=== PATIENT | male | born 1950 | race Caucasian/White ===

== ENCOUNTER 2020-11-22 09:17 | Outpatient (REF) | payer MEDICARE, MEDICAID, SELFPAY ==
[2020-11-22 12:22] LABS: Creatinine Urine 189.01 mg/dL; Microalbum/Creatinine Ratio Ur 5.8 ug/mg cr
[2020-11-22 12:49] LABS: Alanine Aminotransferase 29 U/L (0-40); Albumin Level 4.1 g/dL (3.5-5.0); Alkaline Phosphatase 90 U/L (39-117); Anion Gap 14 (12-20); Aspartate Amino Transferase 21 U/L (5-37); Bilirubin Total 0.3 mg/dL (0.0-1.0); Blood Urea Nitrogen 22 mg/dL (9-16); Carbon Dioxide 28 mmol/L (22-29); Chloride 104 mmol/L (96-108); Cholesterol 164 mg/dL; Estimated Glomerular Filt Rate > 60; Glucose Fasting 141 mg/dL (60-99); HDL Cholesterol 49 mg/dL; LDL Cholesterol Calculated 94 mg/dl; Potassium 4.6 mmol/L (3.3-5.1); Sodium 141 mmol/L (135-145); Total Protein 6.5 g/dL (6.5-8.0); Triglycerides 108 mg/dL
== END 2020-11-22 09:18 | disposition home or self-care (01) ==
LOC: HO.HMGCLDS 09:17
PROVIDERS: PCP Nurse Practitioner Family; Visit Provider Nurse Practitioner Family
DX: E11.9 Type 2 diabetes mellitus without complications (principal); I10 Essential (primary) hypertension; Z12.5 Encounter for screening for malignant neoplasm of prostate
CPT/HCPCS: 36415; 80053; 80061; 82043; 84153; 84443

== ENCOUNTER → 2022-05-15 13:12 | Outpatient (REF) | payer MEDICARE, MEDICAID, SELFPAY ==
--- NOTE | 2022-05-15 13:15 | CA_ITS ---
Transthoracic Echocardiogram Patient (Last, First, Middle): Uriah Ramires A Gender: Male Date of : 1950 Age: 71 Procedure Date: 05/15/2022 Procedure Type: Transthoracic Echocardiogram Location: OP Height: 175.26 cm Weight: 73.94 kg BSA: 1.89 m2 Heart Rate: 73 bpm BP: 130 / 85 mmHg Machine Setter Automatic: ANIBAL Najera MD: Wally Roa [facility] Drafting Clerk: Christophe Mayorga MD Symptoms: I35.0 - Nonrheumatic aortic (valve) stenosis Study Quality: Adequate ECG Rhythm: Sinus Conclusions: - 1. Normal LV systolic function with impaired relaxation filling pattern 2. [id number] aortic stenosis and mild aortic regurgitation 3. No gross pericardial effusion Findings Left Ventricle Normal left ventricular size, thickness, and systolic function. The visually estimated ejection fraction is between 55-60%. Spectral Doppler is indicative of an impaired relaxation filling pattern. E/E prime ratio is between 8 and 15 consistent with indeterminate filling pressures. Right Ventricle Normal right ventricular cavity size and systolic function. Atria The left atrium is normal in size. Interatrial shunt cannot be excluded. The right atrium is normal in size. Aortic Valve There is mild calcification of the aortic valve. There is moderate thickening of the aortic valve. There is mild to moderate aortic valve stenosis. The peak aortic gradient is 23 mmHg.The mean gradient is 13 mmHg. The aortic valve area is 1.30 cm2. There is mild aortic valve regurgitation. Mitral Valve There is mild anterior and posterior mitral leaflet thickening. There is mild mitral annular calcification. There is trace mitral valve regurgitation. There is no mitral valve stenosis. Pulmonic Valve The pulmonic valve was not well visualized. Tricuspid Valve Likely normal tricuspid valve structure and function. Tricuspid regurgitation envelope is inadequate for calculation of right ventricular systolic pressure. Normal right atrial pressure. Great Vessels All visible segments of the aorta are normal in size. The pulmonary artery was not well visualized. Venous The inferior vena cava is normal in size and collapses greater than 50% with inspiration. Pericardium/Pleural There is no evidence of pericardial effusion. Prior Study Comparison No significant change compared to prior study dated: 02/29/2020. Measurements 2D Linear Measurements IVSd: 1.11 0.6-0.9/0.6-1.0 cm LVIDd: 5.02 3.9-5.3/4.2-5.9 cm LVIDd Index: 2.66 2.4-3.2/2.2-3.1 cm/m2 LVIDs: 3.02 2.0-3.6 cm LVPWd: 1.07 0.7-1.1 cm LA Diam: 3.10 2.7-3.8/3.0-4.0 cm LAIDs Index: 1.64 1.5-2.3 cm/m2 LV Mass: 256.61 67-162/88-224 g LV Mass Index: 135.77 43-95/49-115 g/m2 LVOT Diam: 2.10 3.0+(-)1.3 cm 2D Systolic Function EF 4C: 52.80 >55% EF 2C: 62.10 >55% EF BiP: 55.40 >55% Mitral Valve MV Pk E: 0.77 MV PK A: 0.85 MV Decel Time: 216.00 E/A: 0.90 E'Lateral: 10.00 E'Medial: 9.03 E/E' Med: 8.50 E/E' Lat: 7.70 PHT: 63.00 MVA PHT: 3.49 Decel [place]: 3.54 Aortic Valve AoV Pk Rigoberto: 2.38 AoV Mn Rigoberto: 1.70 AoV VTI: 0.51 AoV Pk Grad: 23.00 Aov Mn Grad: 13.00 MERRY Cont.VTI: 1.30 AI Pk Rigoberto: 4.44 AI [place]: 2.90 LVOT LVOT Pk Rigoberto: 0.88 LVOT Mn [place]: 0.64 LVOT VTI: 0.19 LVOT Pk Grad: 3.00 LVOT Mn Grad: 2.00 LVOT Diam: 2.10 LVOT Area: 3.46 Diastolic Function MV Pk E: 0.77 MV Pk A: 0.85 E/A: 0.90 E'Medial: 9.03 E/E' Med: 8.50 E' Laterial: 10.00 E/E' Lat: 7.70 Right Ventricle TAPSE (mm): 24.40 TVS' Rigoberto: 12.90 Tricuspid Valve RA Press: 3.00 Great Vessels Aorta Sinus of Valsalva: 3.50 2.0-3.5 cm Ao Asc: 3.40 2.1-3.4 cm Pulmonary Valve PV Pk Rigoberto: 1.14 Peak PV Grad: 5.00 Updated in Other Vendor System with Status of Final Christophe Mayorga MD electronically signed on 05/16/2022 8:40:58 AM with status of Final
== END ==
LOC: HO.CARD 13:12
PROVIDERS: PCP Nurse Practitioner Family; Visit Provider Nurse Practitioner Family
DX: I35.0 Nonrheumatic aortic (valve) stenosis (principal)
CPT/HCPCS: 93306

== ENCOUNTER 2022-07-08 11:25 | Emergency (ER) | payer MEDICARE, MEDICAID, SELFPAY ==
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
--- NOTE | ~2022-07-08 | XR_ITS ---
EXAMINATION: XR HIP, LEFT , AP pelvis CLINICAL INFORMATION: Fall COMPARISON: None available at the time of this dictation. TECHNIQUE: Frontal and lateral views of the hip acquired. , AP pelvis FINDINGS: There is no evidence of acute fracture or dislocation. There are mild degenerative arthritic changes of the hip evident by sclerotic changes of the acetabular roof and narrowing of the joint space. Mild degenerative changes of the symphysis pubis. Mild degenerative changes of the SI joints. Adjacent pubic rami are intact. Surrounding soft tissues are unremarkable. XR/XR hip LT w PEL1V IMPRESSION: Mild degenerative arthritis. No definite fracture. Normal radiograph does not entirely exclude the possibility of hip fracture or bone contusions. If there is high clinical suspicion or if patient symptoms persist for longer period, then MRI might be utilized for further investigation.
--- NOTE | ~2022-07-08 | CT_ITS ---
CT head/brain wo IV con CLINICAL INFORMATION: Fall COMPARISON: MRI 2013 TECHNIQUE: Department standard protocol. This CT examination was performed using dose optimization techniques as appropriate, variously including the following: *Automated exposure control *Adjustment of mA and/or kV according to patient size (this includes techniques or standardized protocols for targeted exams where dose is matched to indication/reason for exam; i.e. extremities or head) *Use of iterative reconstruction technique DLP: 1023 mGy-cm FINDINGS: CEREBRAL HEMISPHERES: There is no evidence of intra-axial or extra-axial mass, hemorrhage or acute infarct. BRAIN PARENCHYMA: Normal moore-white matter differentiation. SUBDURAL SPACE: No bleed. BASAL GANGLIA AND PINEAL GLAND: Unremarkable VENTRICLES: Symmetric and normal in size. CEREBELLUM AND BRAINSTEM: Redemonstration of a fluid-filled space posterior fossa left of midline, as described on the MRI this may represent an arachnoid cyst versus a congenital variance prominent subdural space. There is no mass effect. CEREBELLOPONTINE ANGLES: No lesion found. ORBITS: No intraorbital mass. VESSELS: Unremarkable SKULL BASE: Unremarkable INCLUDED SINUSES AT SKULL BASE: Clear SKULL AND SKIN: No fracture or bone lesion found. CT/CT head/brain wo IV con IMPRESSION: * No CT evidence of intracranial bleed. * Redemonstration of a fluid-filled space posterior fossa left of midline, as described on the MRI this may represent an arachnoid cyst versus a prominent subdural space. There is no mass effect.
--- NOTE | ~2022-07-08 | CT_ITS ---
EXAMINATION: CT CERVICAL SPINE CLINICAL INFORMATION: Reason for Exam s/p fall ? head injury COMPARISON: No prior CT available, TECHNIQUE: Computed axial sagittal and coronal images acquired using department's standard protocol. This CT examination was performed using dose optimization techniques as appropriate, variously including the following: *Automated exposure control *Adjustment of mA and/or kV according to patient size (this includes techniques or standardized protocols for targeted exams where dose is matched to indication/reason for exam; i.e. extremities or head) *Use of iterative reconstruction technique CONTRAST: None DLP: 350 mGy-cm FINDINGS: SKULL BASE: Visualized structures at skull base are normal, Included facial sinuses are clear, CERVICAL VERTEBRAE: 7 cervical vertebrae identified maintaining proper height and alignments. Plate and screws, anterior fusion of C4-C5, hardware remain intact. DISCS: Loss of disc heights at C3-C4, C4-C5, C5-C6 suggests underlying degenerative disc disease. Developed osteophyte from the edges of endplates encroaching on the left foramen at C3-C4 and right foramen at C5-C6, possible underlying nerve impingement. C1-C2: No fracture. Anatomic alignments maintained, no significant osseous a stenosis of central canal. C2-C3: No fracture. Anatomic alignments maintained, no significant osseous a stenosis of central canal. C3-C4: No fracture. Anatomic alignments maintained, no significant osseous a stenosis of central canal. C4-C5: No fracture. Anatomic alignments maintained, no significant osseous a stenosis of central canal. C5-C6: No fracture. Anatomic alignments maintained, no significant osseous a stenosis of central canal. C6-C7: No fracture. Anatomic alignments maintained, no significant osseous a stenosis of central canal. C7-T1: No fracture. Anatomic alignments maintained, no significant osseous a stenosis of central canal. PARAVERTEBRAL SOFT TISSUE: Paravertebral soft tissues unremarkable. CT/CT cervical spine wo IV con IMPRESSION: * No CT evidence of cervical spine fracture. * Anterior fusion of C4-C5, hardware remain intact. * Loss of disc height at C3-C4, C4-C5, C5-C6 suggests underlying degenerative disc disease. * Developed osteophyte from the edges of endplates encroaching on the left foramen at C3-C4 and right foramen at C5-C6, possible underlying nerve impingement. MRI could be utilized for further investigation if clinically indicated.
[2022-07-08 12:04] VITALS: BP 165/92; PULSE 84; RESP 18; TEMP 36.4; O2SAT 95; BMI 25.0
--- NOTE | 2022-07-08 12:04 | ED_ITS ---
HPI - Fall General Chief Complaint: Fall <GAYLE Quezada - Last Filed: 07/08/22 12:09> Stated Complaint: fall <GAYLE Quezada - Last Filed: 07/08/22 12:09> Time Seen by Provider: 07/08/22 13:13 <GAYLE Quezada - Last Filed: 07/08/22 12:09> Source: patient <Brandie Suero NP - Last Filed: 07/08/22 18:09> Mode of arrival: ambulatory <Brandie Suero NP - Last Filed: 07/08/22 18:09> Limitations: no limitations <Brandie Suero NP - Last Filed: 07/08/22 18:09> History of Present Illness HPI Narrative: 71-year-old male with a history of coronary disease, hypertension, hyperlipidemia, diabetes presents with complaints of left hip pain and bruising. Patient reports on he had a fall down 3 stairs landing on the left hip and feeling a snapping sensation. Since then he has had pain and bruising. He has been able to walk. He denies any head strike or loss of consciousness. Denies chest pain, abdominal pain, vomiting, vision changes, neck pain, urinary symptoms, fever, numbness/tingling/weakness. <Brandie Suero NP - Last Filed: 07/08/22 18:09> Related Data Home Medications: Home Medications Medication Instructions Recorded Confirmed blood sugar diagnostic (OneTouch #10 ea 07/17/20 08/07/21 Verio test strips) famotidine 20 mg tablet mg PO BID 07/17/20 04/15/22 lancets (OneTouch UltraSoft #100 ea 07/17/20 08/07/21 Lancets) mecobalamin (vitamin B12) 1,000 1,000 mcg PO DAILY 07/17/20 04/15/22 mcg chewable tablet pramipexole 0.5 mg tablet mg PO BEDTIME 07/17/20 04/15/22 Previous Rx's Medication Instructions Recorded FreeStyle Krish 2 [place] (flash #1 ea 04/15/22 glucose scanning reader) FreeStyle Krish 2 Sensor (flash #1 ea 04/15/22 glucose sensor) amlodipine 5 mg tablet 5 mg PO DAILY #90 tabs 04/15/22 aspirin 81 mg tablet,delayed 81 mg PO DAILY 90 days #90 tabs 04/15/22 release atorvastatin 80 mg tablet 80 mg PO DAILY #90 tabs 04/15/22 lisinopril 5 mg tablet 5 mg PO DAILY 90 days #90 tabs 04/15/22 metformin 500 mg tablet 500 mg PO DAILY #90 tabs 04/15/22 montelukast 10 mg tablet 10 mg PO DAILY 90 days #90 tabs 04/15/22 paroxetine HCl 30 mg tablet 30 mg PO QAM #90 tabs 04/15/22 oxycodone 5 mg tablet 5 mg PO Q8H PRN pain #5 tabs 07/08/22 <GAYLE Quezada - Last Filed: 07/08/22 12:09> Allergies/Adverse Reactions: Allergies Allergy/AdvReac Type Severity Reaction Status Date / Time No Known Allergies Allergy Verified 04/15/22 10:01 <GAYLE Quezada - Last Filed: 07/08/22 12:09> Review of Systems Review of Systems: Yes all other systems are reviewed and are negative <Brandie Suero NP - Last Filed: 07/08/22 18:09> Constitutional: Constitutional: Reports no additional constitutional complaints, Denies body ache(s), Denies chills, Denies fever(s), Denies headache(s) and Denies weakness <Brandie Suero NP - Last Filed: 07/08/22 18:09> Eyes: Eyes: Reports no additional eye complaints and Denies change in vision <Brandie Suero NP - Last Filed: 07/08/22 18:09> ENT: Reports system reviewed and no additional complaints, except as documented, Denies dizziness, Denies headache(s), Denies nasal congestion, Denies nasal discharge and Denies neck pain <Brandie Suero NP - Last Filed: 07/08/22 18:09> Cardiovascular: Cardiovascular: Reports no additional cardiovascular complaints, Denies chest pain, Denies leg edema and Denies dyspnea <KIT Beth Last Filed: 07/08/22 18:09> Respiratory: Respiratory: Reports no additional respiratory complaints, Denies cough and Denies dyspnea <Brandie Suero NP - Last Filed: 07/08/22 18:09> Gastrointestinal: Gastrointestinal: Reports no additional gastrointestinal complaints, Denies abdominal pain, Denies diarrhea, Denies nausea and Denies vomiting <Brandie Suero NP - Last Filed: 07/08/22 18:09> Genitourinary: Genitourinary: Denies urinary incontinence <Brandie clark NP - Last Filed: 07/08/22 18:09> Musculoskeletal: Musculoskeletal: Reports no additional musculoskeletal complaints, Denies back pain, Reports arthralgias, Denies joint swelling, Denies neck pain, Denies numbness and Denies tingling <Brandie Suero NP - Last Filed: 07/08/22 18:09> Integumentary/Breasts: Skin/Breast: Reports system reviewed and no additional complaints, except as docu and Denies rash <Brandie Suero NP - Last Filed: 07/08/22 18:09> Neurologic: Reports system reviewed and no additional complaints, except as documented, Denies Abnormal speech present, Denies dizziness, Denies headache(s), Denies numbness, Denies tingling and Denies weakness <Brandie Suero NP - Last Filed: 07/08/22 18:09> [facility] Past Medical History Attestation statement: The following information was validated with the patient. <Brandie Suero NP - Last Filed: 07/08/22 18:09> Source: old records reviewed and nursing notes reviewed <Brandie Suero NP - Last Filed: 07/08/22 18:09> Medical History: Medical History Aortic stenosis CAD (coronary artery disease) Cervical radiculopathy Diabetes mellitus Elevated lipoprotein A level HTN (hypertension) Hyperlipidemia Neuritis PAC (premature atrial contraction) PVD (peripheral vascular disease) RLS (restless legs syndrome) Vitamin B12 deficiency <GAYLE Quezada - Last Filed: 07/08/22 12:09> Surgical History: Surgical History History of knee surgery <GAYLE Quezada - Last Filed: 07/08/22 12:09> Family History Family History: Family History Father Bone cancer Mother Unknown family medical history <GAYLE Quezada - Last Filed: 07/08/22 12:09> Social History Social History: Social History Housing: Apartment Alcohol intake: never Patient Tobacco Use Status: Former Tobacco user Quit Date: 1976 e-Cigarette/Vaping Use: Never Used Second Hand Smoke Exposure: No Advance Directives: Yes Advance Directives Information Provided: Yes Advance Directives on File: No Current occupational status: retired Cognitive needs: No Hearing needs: No Vision needs: No <GAYLE Quezada - Last Filed: 07/08/22 12:09> Physical Exam Vital Signs: Vital Signs: Last Vital Signs Temp 97.9 F 07/08/22 14:11 Pulse 75 07/08/22 14:11 Resp 16 07/08/22 14:11 BP 124/88 07/08/22 14:11 Pulse Ox 94 07/08/22 14:11 O2 Del Method 07/08/22 14:11 BMI result Body Mass Index 25.0 <GAYLE Quezada - Last Filed: 07/08/22 12:09> Vital Signs: Last Vital Signs Temp 97.9 F 07/08/22 14:11 Pulse 75 07/08/22 14:11 Resp 16 07/08/22 14:11 BP 124/88 07/08/22 14:11 Pulse Ox 94 07/08/22 14:11 O2 Del Method 07/08/22 14:11 BMI result Body Mass Index 25.0 <Brandie Suero NP - Last Filed: 07/08/22 18:09> Const: General: cooperative, healthy appearing, comfortable and no acute distress <Brandie Suero NP - Last Filed: 07/08/22 18:09> Orientation/consciousness: patient oriented x3 <Brandie Suero NP - Last Filed: 07/08/22 18:09> Limitations: no limitations <Brandie Suero NP - Last Filed: 07/08/22 18:09> HEENT: Head: Yes normal to inspection, No Campuzano's sign and No raccoon eyes <Brandie Suero NP - Last Filed: 07/08/22 18:09> Ears: hearing grossly normal bilaterally and TM's normal bilaterally <Brandie Suero NP - Last Filed: 07/08/22 18:09> General nose exam: Normal external nose present <Brandie Suero NP - Last Filed: 07/08/22 18:09> Face and sinus: Yes normal facial exam <Brandie Suero NP - Last Filed: 07/08/22 18:09> Mouth: Normal oral and palatal mucosa present <Brandie Suero NP - Last Filed: 07/08/22 18:09> Throat: Yes posterior oropharynx normal, Yes tonsils normal and Yes uvula midline <Brandie Suero NP - Last Filed: 07/08/22 18:09> Eyes: General: appearance normal, both eyes and all related structures <Brandie Suero NP - Last Filed: 07/08/22 18:09> Pupils: Equal, round and reactive pupils present <Brandie Suero NP - Last Filed: 07/08/22 18:09> Neck: Neck: Yes normal visual inspection, Yes full ROM, Yes no lymphadenopathy and Yes no meningeal signs <Brandie Suero NP - Last Filed: 07/08/22 18 :09> Chest: Chest palpation & inspection: normal inspection of the chest <Brandie Suero NP - Last Filed: 07/08/22 18:09> Resp: Effort & Inspection: normal respiratory effort <Brandie Suero NP - Last Filed: 07/08/22 18:09> Auscultation: clear to auscultation bilaterally <Brandie Suero NP - Last Filed: 07/08/22 18:09> Cardio: Rate: regular rate <Brandie Suero NP - Last Filed: 07/08/22 18:09> Rhythm: regular rhythm <Brandie Suero NP - Last Filed: 07/08/22 18:09> Peripheral pulses: Peripheral pulses 2+ throughout <Brandie Suero NP - Last Filed: 07/08/22 18:09> GI: Inspection: Yes normal to inspection <Brandie Suero NP - Last Filed: 07/08/22 18:09> Palpation (GI): Soft to palpation and nontender <Brandie Suero NP - Last Filed: 07/08/22 18:09> Auscultation: normal bowel sounds <Brandie Suero NP - Last Filed: 07/08/22 18:09> Back/Spine/Pelvis: Thoracic/Lumbar Spine: thoracic and lumbar spine normal to inspection <Brandie Suero NP - Last Filed: 07/08/22 18:09> Skin: General skin exam: no rashes or lesions noted <Brandie Suero NP - Last Filed: 07/08/22 18:09> Neuro: General: patient oriented x3, moves all extremities, no meningeal signs, no focal motor deficits and normal sensation to monofilament <Brandie Suero NP - Last Filed: 07/08/22 18:09> Cranial nerves: Yes CN's II-XII intact bilaterally, Yes Equal, round and reactive pupils present, Yes Bilaterally intact EOM present, Yes Nystagmus not present, Yes Normal facial strength present and Yes Midline tongue present <Brandie Suero NP - Last Filed: 07/08/22 18:09> Cognition (Neuro): normal cognition <Brandie Suero NP - Last Filed: 07/08/22 18:09> Speech: No Abnormal speech present <Brandie Suero NP - Last Filed: 07/08/22 18:09> Gait exam (Neuro): Normal gait present <Brandie Suero NP - Last Filed: 07/08/22 18:09> Motor exam (neuro): 5/5 motor strength present throughout <Brandie Suero NP - Last Filed: 07/08/22 18:09> Sensory Exam: Normal double simultaneous stimulation for sensation <Brandie Suero NP - Last Filed: 07/08/22 18:09> Extrem: Other: Ecchymosis over the left lateral hip extending over the left groin and lower abdomen and over into the left lower soft tissue area of the lumbar spine Full range of motion of the hip <Brandie Suero NP - Last Filed: 07/08/22 18:09> General: Yes normal to inspection, Yes no pedal edema and Yes no calf tenderness <Brandie Suero NP - Last Filed: 07/08/22 18:09> Course Course Course Narrative: SUZY-12:05pm - 71yoM who is presenting to the ED with complaints of left hip pain/buttocks pain after he fell down 3 flights of stairs approximately 4 days ago and since then has been having pain to the left hip. Reports he is unsure if he hit his head but he did not lose consciousness and he is not on any blood thinners. He denies any other symptoms complaints concerns or injuries at this time. Plan: Patient is stable has full range of motion of the left hip some bruising noted with soft tissue swelling no obvious ligamentous or tendon injury noted. Normal steady gait. Neck is soft nontender no signs of trauma. Patient will be sent to the waiting room to be seen in [facility] CT scan of brain/cervical spine x-ray of left hip ordered. <GAYLE Quezada - Last Filed: 07/08/22 12:09> Reevaluation(s) Reevaluation #1: 1630-CT head shows no acute finding. CT cervical spine shows possible nerve impingement. No clinical exam findings to suggest this. Patient may pursue this outpatient if he develops symptoms with his primary care doctor for MRI <Brandie Suero NP - Last Filed: 07/08/22 18:09> Reevaluation #2: 1800-CT shows shearing injury of the left hip. This was discussed with Orthopedics see recommendations. Patient is up and ambulatory to the bathroom independently. There is a fluid collection seen. His fall was and his hemoglobin is stable. I do not think that he needs repeat hemoglobin while he is here in the ER. Terry wrap was applied and patient was given crutches for home. Reviewed rice. Reviewed follow-up with Orthopedics. Reviewed worrisome signs and symptoms of when to return to the emergency room. Comfortable plan for discharge home. <Brandie Suero NP - Last Filed: 07/08/22 18:09> Medications Administered Discontinued Medications Generic Name Dose Route Start Last Admin Trade Name Freq PRN Reason Stop Dose Admin Iohexol 100 ml 07/08/22 15:12 07/08/22 15:13 Iohexol 350 Mg/Ml 100 Ml Infus..Btl IV 07/08/22 15:13 85 ml ONCE ONE Administration <GAYLE Quezada - Last Filed: 07/08/22 12:09> Medications Administered Discontinued Medications Generic Name Dose Route Start Last Admin Trade Name Freq PRN Reason Stop Dose Admin Iohexol 100 ml 07/08/22 15:12 07/08/22 15:13 Iohexol 350 Mg/Ml 100 Ml Infus..Btl IV 07/08/22 15:13 85 ml ONCE ONE Administration <Brandie Suero NP - Last Filed: 07/08/22 18:09> Medical Decision Making Medical Decision Making MDM Narrative: 71-year-old male here with a fall with bruising over the left hip, left lower back and left lower abdomen. Patient had x-rays from triage which were negative for acute fracture. Due to bruising concern for bleeding, retroperitoneal hemorrhage. Patient have CT of abdomen pelvis with IV contrast Patient had CT head and neck in triage. No acute finding. Normal neuro. No reports of head strike or loss of consciousness <Brandie Suero NP - Last Filed: 07/08/22 18:09> Differential Diagnosis Differential Diagnoses: The differential diagnosis associated with the presentation includes <Brandie Suero NP - Last Filed: 07/08/22 18:09> Hip fracture, contusion, retroperitoneal hemorrhage <Brandie Suero NP - Last Filed: 07/08/22 18:09> Consult Healthcare Provider Spoke to orthopedic (adeline) in regards to CT finding of shearing injury at the left iliac crest with fluid collection. Recommended compression with Terry wrap around the waist and affected thigh and weight-bearing with crutches and follow-up in the office. <Brandie Suero NP - Last Filed: 07/08/22 18:09> Lab Data [facility] Lab Attestation statement: I reviewed the patient's lab results. <Brandie Suero NP - Last Filed: 07/08/22 18:09> Result Diagrams: : 07/08/22 13:54 07/08/22 13:54 <GAYLE Quezada - Last Filed: 07/08/22 12:09> Labs: Lab Results 07/08/22 07/08/22 07/08/22 Range/Units 13:54 13:54 13:54 WBC 6.7 (4.8-10.8) X10*3/uL RBC 4.66 (4.60-5.80) X10*6/uL Hgb 14.1 (14.0-18.0) g/dl Hct 41.2 L (42.0-52.0) % MCV 88.4 (80.0-98.0) fL MCH 30.3 (27.0-33.0) pg MCHC 34.2 (31.0-36.0) g/dl RDW 12.3 (11.0-16.0) % Plt Count 183 (160-400) X10*3/uL MPV 9.9 (9.4-12.4) fL Immature Gran % (Auto) 0.2 (0.0-0.4) % Neut % (Auto) 71.7 (45-73) % Lymph % (Auto) 17.4 L (20-40) % [place] % (Auto) 8.4 (2-11) % Eos % (Auto) 1.8 (0-4) % Baso % (Auto) 0.5 (0-2) % Lymph # (Auto) 1.2 (1.2-4.9) X10*3/uL [place] # (Auto) 0.6 (0.1-1.2) X10*3/uL Eos # (Auto) 0.1 (0.0-0.4) X10*3/uL Baso # (Auto) 0.0 (0.0-0.2) X10*3/uL Abs Immat Gran (auto) 0.01 (0.00-0.03) X10*3/uL Absolute Neuts (auto) 4.8 (2.0-8.3) x10*3/uL Absolute Nucleated RBC 0.000 (0.0-0.012) X10*3/uL Nucleated RBC % (auto) 0.0 (0.0-0.2) /100WBC PT 11.4 (10.0-13.1) SEC INR 1.0 (0.9-1.1) Sodium 142 (135-145) mmol/L Potassium 4.5 (3.3-5.1) mmol/L Chloride 105 (96-108) mmol/L Carbon Dioxide 29 (22-29) mmol/L Anion Gap 13 (12-20) BUN 22 H (9-16) mg/dL Creatinine 0.87 (0.5-1.4) mg/dL Estim Creat Clear Calc 77.5 Estimated GFR > 60 Random Glucose 152 H (60-115) mg/dL Calcium 10.0 D (8.4-10.2) mg/dL Total Bilirubin 0.4 (0.0-1.0) mg/dL Direct Bilirubin < 0.2 (0.0-0.5) mg/dL AST 20 (5-37) U/L ALT 30 (0-40) U/L Alkaline Phosphatase 88 (39-117) U/L Total Protein 6.3 L (6.5-8.0) g/dL Albumin 3.9 (3.5-5.0) g/dL <GAYLE Quezada - Last Filed: 07/08/22 12:09> Lab Results 07/08/22 07/08/22 07/08/22 Range/Units 13:54 13:54 13:54 WBC 6.7 (4.8-10.8) X10*3/uL RBC 4.66 (4.60-5.80) X10*6/uL Hgb 14.1 (14.0-18.0) g/dl Hct 41.2 L (42.0-52.0) % MCV 88.4 (80.0-98.0) fL MCH 30.3 (27.0-33.0) pg MCHC 34.2 (31.0-36.0) g/dl RDW 12.3 (11.0-16.0) % Plt Count 183 (160-400) X10*3/uL MPV 9.9 (9.4-12.4) fL Immature Gran % (Auto) 0.2 (0.0-0.4) % Neut % (Auto) 71.7 (45-73) % Lymph % (Auto) 17.4 L (20-40) % [place] % (Auto) 8.4 (2-11) % Eos % (Auto) 1.8 (0-4) % Baso % (Auto) 0.5 (0-2) % Lymph # (Auto) 1.2 (1.2-4.9) X10*3/uL [place] # (Auto) 0.6 (0.1-1.2) X10*3/uL Eos # (Auto) 0.1 (0.0-0.4) X10*3/uL Baso # (Auto) 0.0 (0.0-0.2) X10*3/uL Abs Immat Gran (auto) 0.01 (0.00-0.03) X10*3/uL Absolute Neuts (auto) 4.8 (2.0-8.3) x10*3/uL Absolute Nucleated RBC 0.000 (0.0-0.012) X10*3/uL Nucleated RBC % (auto) 0.0 (0.0-0.2) /100WBC PT 11.4 (10.0-13.1) SEC INR 1.0 (0.9-1.1) Sodium 142 (135-145) mmol/L Potassium 4.5 (3.3-5.1) mmol/L Chloride 105 (96-108) mmol/L Carbon Dioxide 29 (22-29) mmol/L Anion Gap 13 (12-20) BUN 22 H (9-16) mg/dL Creatinine 0.87 (0.5-1.4) mg/dL Estim Creat Clear Calc 77.5 Estimated GFR > 60 Random Glucose 152 H (60-115) mg/dL Calcium 10.0 D (8.4-10.2) mg/dL Total Bilirubin 0.4 (0.0-1.0) mg/dL Direct Bilirubin < 0.2 (0.0-0.5) mg/dL AST 20 (5-37) U/L ALT 30 (0-40) U/L Alkaline Phosphatase 88 (39-117) U/L Total Protein 6.3 L (6.5-8.0) g/dL Albumin 3.9 (3.5-5.0) g/dL <Brandie Suero NP - Last Filed: 07/08/22 18:09> Independent Interpretation I performed an independent interpretation of an: Plain X-Ray (I independently reviewed n x-ray which shows no acute finding) and CT Scan (I independently reviewed CT head and cervical spine with no acute finding) <Brandie Suero NP - Last Filed: 07/08/22 18:09> Interpretation: I independently reviewed the CT of the chest, abdomen and pelvis and agree with the radiologist's report <Brandie Suero NP - Last Filed: 07/08/22 18:09> Radiology Impression Discussion of test interpretation with radiology: I have reviewed the radiologist's reading. <Brandie Suero NP - Last Filed: 07/08/22 18:09> Radiologist Impression: FINDINGS: ? CEREBRAL HEMISPHERES: There is no evidence of intra-axial or extra-axial mass, hemorrhage or acute infarct. BRAIN PARENCHYMA: Normal moore-white matter differentiation. SUBDURAL SPACE: No bleed. BASAL GANGLIA AND PINEAL GLAND: Unremarkable VENTRICLES: Symmetric and normal in size. CEREBELLUM AND BRAINSTEM: Redemonstration of a fluid-filled space posterior fossa left of midline, as described on the MRI this may represent an arachnoid cyst versus a congenital variance prominent subdural space. There is no mass effect. CEREBELLOPONTINE ANGLES: No lesion found. ORBITS: No intraorbital mass. VESSELS: Unremarkable SKULL BASE: Unremarkable INCLUDED SINUSES AT SKULL BASE: Clear SKULL AND SKIN: No fracture or bone lesion found. CT/CT head/brain wo IV con IMPRESSION: ? *? No CT evidence of intracranial bleed. ? *? Redemonstration of a fluid-filled space posterior fossa left of midline, as described on the MRI this may represent an arachnoid cyst versus a prominent subdural space. There is no mass effect. CT/CT cervical spine wo IV con IMPRESSION: ? *? No CT evidence of cervical spine fracture. ? *? Anterior fusion of C4-C5, hardware remain intact. ? *? Loss of disc height at C3-C4, C4-C5, C5-C6 suggests underlying degenerative disc disease. ? *? Developed osteophyte from the edges of endplates encroaching on the left foramen at C3-C4 and right foramen at C5-C6, possible underlying nerve impingement. MRI could be utilized for further investigation if clinically indicated. [address] [address] XRay Report Signed Patient: Uriah Ramires JR MR#: [id number] : 1950 Acct:[id number] Age/Sex: 71 / M ADM Date: 07/08/22 Loc: HO.ED Attending Dr: Ordering Physician: Chapis Carter Date of Service: 07/08/22 Procedure(s): XR hip LT w PEL1V Accession Number(s): [id number] cc: Chapis Carter~ EXAMINATION: XR HIP, LEFT , AP pelvis CLINICAL INFORMATION: Fall COMPARISON: None available at the time of this dictation. TECHNIQUE: Frontal and lateral views of the hip acquired. , AP pelvis FINDINGS: There is no evidence of acute fracture or dislocation. There are mild degenerative arthritic changes of the hip evident by sclerotic changes of the acetabular roof and narrowing of the joint space. Mild degenerative changes of the symphysis pubis. Mild degenerative changes of the SI joints.? Adjacent pubic rami are intact. Surrounding soft tissues are unremarkable. XR/XR hip LT w PEL1V IMPRESSION: Mild degenerative arthritis. ? No definite fracture. Normal radiograph does not entirely exclude the possibility of hip fracture or bone contusions. If there is high clinical suspicion or if patient symptoms persist for longer period, then MRI might be utilized for further investigation. Ct A/P/mikal FINDINGS: CHEST: Lungs: Central airways are patent. Mild central bronchial wall thickening is seen. No bronchiectasis. No confluent parenchymal disease. Some scattered sub-4 mm densities are present. Mediastinum: Visualized thyroid gland unremarkable. Heart normal size. No pericardial effusion. Coronary artery calcification is seen. No thoracic aortic aneurysm or dissection. No mediastinal or hilar lymphadenopathy. Pleura: There is no significant effusion. No pleural mass or thickening. Chest Wall/Axilla: Unremarkable. ABDOMEN/PELVIS: Liver, Gallbladder, Biliary Tree: The liver is normal in size, shape, and attenuation. No focal hepatic lesion or biliary ductal dilatation is present. No evidence of splenic laceration or abnormal subcapsular fluid collection. Status post cholecystectomy. Pancreas: Unremarkable. Spleen: Unremarkable. No evidence of laceration or subcapsular fluid collection. Adrenal Glands: Unremarkable. Kidneys and Ureters: The kidneys are normal in size, shape, and attenuation. No hydronephrosis or hydroureter or calculi seen. No perinephric stranding. There are bilateral renal cysts present. Bladder: Unremarkable. Gastrointestinal Tract: No dilated loops of large or small bowel are evident. No free air or free fluid. There is a moderate hiatal hernia. There is prominent diverticular disease involving the sigmoid colon with mild diverticulosis involving the remainder of the colon. No evidence of acute diverticulitis. The appendix appears unremarkable. Abdominal Wall: No hernia is demonstrated. There is subcutaneous fat stranding about the left iliac bone as well as a fluid collection adjacent to the iliac crest measuring approximately 5.6 x 1.7 x 9.3 cm in size with the appearance of a shearing or degloving injury (Hamilton-Lavall?e injury). Lymph Nodes: No lymphadenopathy appreciated. Vascular: Unremarkable. Pelvic Viscera: There is some prostatic calcifications present. No suspicious mass. Osseous Structures: There is a sclerotic nondestructive lesion seen within the right iliac bone. No suspicious destructive bony lesions. CT/CT abdomen pelvis w IV con IMPRESSION: Shear type soft tissue injury about the left iliac crest with fluid collection as described above. ? No definite acute fracture identified. ? No evidence of solid organ injury. ? <Brandie Suero NP - Last Filed: 07/08/22 18:09> Discharge Plan Discharge Clinical Impression: Injury of hip, left <GAYLE Quezada - Last Filed: 07/08/22 12:09> Patient Disposition: Home, Self-Care <GAYLE Quezada - Last Filed: 07/08/22 12:09> Instructions: Crutch Instructions (ED), Hip Pain (ED) <GAYLE Quezada - Last Filed: 07/08/22 12:09> Additional Instructions: Use the Terry wrap and crutches for the next few days Apply ice to the area Call Orthopedics to follow up. <GAYLE Quezada - Last Filed: 07/08/22 12:09> Prescriptions: New oxycodone 5 mg tablet 5 mg PO Q8H PRN (Reason: pain) Qty: 5 0RF Rx Instructions: Partial Fill upon patient request. No Action (DME) FreeStyle Krish 2 [place] Misc See Rx Instructions .Route Qty: 1 0RF Rx Instructions: tid testing (DME) FreeStyle Krish 2 Sensor Kit See Rx Instructions .Route Qty: 1 0RF Rx Instructions: tid testing famotidine 20 mg tablet PO BID pramipexole 0.5 mg tablet PO BEDTIME mecobalamin (vitamin B12) 1,000 mcg tablet,chewable 1,000 mcg PO DAILY (DME) lancets [OneTouch UltraSoft Lancets] Misc See Rx Instructions .ROUTE .MEDSUPPLY Qty: 100 Rx Instructions: check sugar once a day (DME) OneTouch Verio test strips Strip See Rx Instructions .ROUTE .MEDSUPPLY Qty: 10 Rx Instructions: check once a day amlodipine 5 mg tablet 5 mg PO DAILY Qty: 90 3RF aspirin 81 mg tablet,delayed release (DR/EC) 81 mg PO DAILY 90 Days Qty: 90 3RF atorvastatin 80 mg tablet 80 mg PO DAILY Qty: 90 3RF lisinopril 5 mg tablet 5 mg PO DAILY 90 Days Qty: 90 3RF metformin 500 mg tablet 500 mg PO DAILY Qty: 90 0RF montelukast 10 mg tablet 10 mg PO DAILY 90 Days Qty: 90 3RF paroxetine HCl 30 mg tablet 30 mg PO QAM Qty: 90 3RF <GAYLE Quezada - Last Filed: 07/08/22 12:09> Referrals: [facility] – [place] [facility] [Provider Group] - 1 week <GAYLE Quezada - Last Filed: 07/08/22 12:09>
[2022-07-08 13:58] LABS: MANUAL DIFF FLAG NO
[2022-07-08 14:00] LABS: Basophils Percent Auto 0.5 % (0-2); Eosinophils Absolute Auto 0.1 X10*3/uL (0.0-0.4); Eosinophils Percent Auto 1.8 % (0-4); Hematocrit 41.2 % (42.0-52.0); Hemoglobin 14.1 g/dl (14.0-18.0); Imm Gran Abs Auto 0.01 X10*3/uL (0.00-0.03); Imm Gran Pct Auto 0.2 % (0.0-0.4); Lymphocytes Absolute Auto 1.2 X10*3/uL (1.2-4.9); Lymphocytes Percent Auto 17.4 % (20-40); Mean Corpuscular HGB Conc 34.2 g/dl (31.0-36.0); Mean Corpuscular Hemoglobin 30.3 pg (27.0-33.0); Mean Corpuscular Volume 88.4 fL (80.0-98.0); Mean Platelet Volume 9.9 fL (9.4-12.4); Monocytes Absolute Auto 0.6 X10*3/uL (0.1-1.2); Monocytes Percent Auto 8.4 % (2-11); Neutrophils Absolute Auto 4.8 x10*3/uL (2.0-8.3); Neutrophils Percent Auto 71.7 % (45-73); Platelet Count 183 X10*3/uL (160-400); Red Blood Count 4.66 X10*6/uL (4.60-5.80); Red Cell Distribution Width 12.3 % (11.0-16.0); White Blood Count 6.7 X10*3/uL (4.8-10.8)
[2022-07-08 14:05] LABS: Prothrombin Time 11.4 SEC (10.0-13.1)
[2022-07-08 14:11] VITALS: BP 124/88; PULSE 75; RESP 16; TEMP 36.6; O2SAT 94
[2022-07-08 14:16] LABS: Alanine Aminotransferase 30 U/L (0-40); Albumin Level 3.9 g/dL (3.5-5.0); Alkaline Phosphatase 88 U/L (39-117); Anion Gap 13 (12-20); Aspartate Amino Transferase 20 U/L (5-37); Bilirubin Direct < 0.2 mg/dL (0.0-0.5); Bilirubin Total 0.4 mg/dL (0.0-1.0); Blood Urea Nitrogen 22 mg/dL (9-16); Carbon Dioxide 29 mmol/L (22-29); Chloride 105 mmol/L (96-108); Creatinine Clr Calc Pharmacy 77.5; Estimated Glomerular Filt Rate > 60; Glucose Random 152 mg/dL (60-115); Potassium 4.5 mmol/L (3.3-5.1); Sodium 142 mmol/L (135-145); Total Protein 6.3 g/dL (6.5-8.0)
[2022-07-08] MEDS: iohexoL 350 MG/ML 100 ML INFUS..BTL IV (15:13)
== END 2022-07-08 18:43 | disposition home or self-care (01) ==
PROVIDERS: Nurse Practitioner Family; Emergency Provider Student in an Organized Health Care Education/Training Program; PCP Nurse Practitioner Family
DX: S79.912A Unspecified injury of left hip, initial encounter (principal); S30.0XXA Contusion of lower back and pelvis, initial encounter; S30.1XXA Contusion of abdominal wall, initial encounter; W10.9XXA Fall (on) (from) unspecified stairs and steps, initial encounter; E11.9 Type 2 diabetes mellitus without complications; I10 Essential (primary) hypertension; E78.5 Hyperlipidemia, unspecified; Z87.891 Personal history of nicotine dependence; Y93.89 Activity, other specified; Y92.018 Other place in single-family (private) house as the place of occurrence of the external cause; Y99.9 Unspecified external cause status; Z79.82 Long term (current) use of aspirin; Z79.02 Long term (current) use of antithrombotics/antiplatelets; Z79.899 Other long term (current) drug therapy; Z79.84 Long term (current) use of oral hypoglycemic drugs
CPT/HCPCS: 36415; 70450; 71260; 72125; 73502; 74177; 80048; 80076; 85025; 85610; 99282; 99284; Q9967

== ENCOUNTER 2022-07-11 14:00 | Outpatient (REF) | payer MEDICARE, MEDICAID, SELFPAY ==
--- NOTE | ~2022-07-11 | XR_ITS ---
EXAMINATION: XR CHEST CLINICAL INFORMATION: Fall COMPARISON: July 08, 2022 and January 16, 2015 TECHNIQUE: 2 views of the chest were obtained. FINDINGS: No significant abnormality is noted involving the heart, lungs, mediastinum, bony thorax or soft tissues. XR/XR chest 2V IMPRESSION: No acute disease.
== END 2022-07-11 14:01 | disposition home or self-care (01) ==
LOC: HO.HMGCX 14:00
PROVIDERS: PCP Nurse Practitioner Family; Visit Provider Nurse Practitioner Family
DX: R58 Hemorrhage, not elsewhere classified (principal); R60.9 Edema, unspecified; Z91.81 History of falling
CPT/HCPCS: 71046

== ENCOUNTER → 2022-07-25 09:30 | Outpatient (BNVA) | payer MEDICARE, MEDICAID, SELFPAY | PROVIDERS: PCP Nurse Practitioner Family; Visit Provider Physician Assistant | DX: S70.02XA Contusion of left hip, initial encounter (principal) | CPT/HCPCS: 99202 ==

== ENCOUNTER → 2022-08-05 12:35 | Outpatient (BNVA) | payer MEDICARE, MEDICAID, SELFPAY | PROVIDERS: PCP Nurse Practitioner Family; Referring Provider Nurse Practitioner Family; Visit Provider Internal Medicine Cardiovascular Disease | DX: I35.0 Nonrheumatic aortic (valve) stenosis (principal); I49.1 Atrial premature depolarization | CPT/HCPCS: 93005; 99212 ==

== ENCOUNTER 2022-11-28 15:04 | Outpatient (REF) | payer MEDICARE, MEDICAID, SELFPAY ==
[2022-11-28 16:40] LABS: MANUAL DIFF FLAG NO
[2022-11-28 16:44] LABS: Basophils Percent Auto 0.7 % (0-2); Eosinophils Absolute Auto 0.1 X10*3/uL (0.0-0.4); Eosinophils Percent Auto 1.8 % (0-4); Hematocrit 43.3 % (42.0-52.0); Hemoglobin 14.4 g/dl (14.0-18.0); Imm Gran Abs Auto 0.01 X10*3/uL (0.00-0.03); Imm Gran Pct Auto 0.2 % (0.0-0.4); Lymphocytes Absolute Auto 1.3 X10*3/uL (1.2-4.9); Lymphocytes Percent Auto 22.1 % (20-40); Mean Corpuscular HGB Conc 33.3 g/dl (31.0-36.0); Mean Corpuscular Hemoglobin 29.7 pg (27.0-33.0); Mean Corpuscular Volume 89.3 fL (80.0-98.0); Mean Platelet Volume 10.4 fL (9.4-12.4); Monocytes Absolute Auto 0.5 X10*3/uL (0.1-1.2); Monocytes Percent Auto 9.2 % (2-11); Neutrophils Absolute Auto 3.7 x10*3/uL (2.0-8.3); Platelet Count 197 X10*3/uL (160-400); Red Blood Count 4.85 X10*6/uL (4.60-5.80); Red Cell Distribution Width 12.1 % (11.0-16.0); White Blood Count 5.7 X10*3/uL (4.8-10.8)
[2022-11-28 16:47] LABS: Appearance Urine Clear; Color Urine Yellow; Glucose Urine UA 100 mg/dL (Negative); Leukocyte Esterase Urine Negative (Negative); Nitrite Urine Negative (Negative); Specific Gravity - Urine 1.025 (1.005-1.025); Urine Blood Negative (Negative); Urine Ketones Negative (Negative); Urine Protein Trace mg/dL (Neg-Trace)
[2022-11-28 16:53] LABS: Estimated Average Glucose 157 mg/dL; Hemoglobin A1c % 7.1 %
[2022-11-28 17:50] LABS: Creatinine Urine 244.04 mg/dL; Microalbum/Creatinine Ratio Ur 6.1 ug/mg cr
[2022-11-28 18:04] LABS: Alanine Aminotransferase 29 U/L (0-40); Albumin Level 4.2 g/dL (3.5-5.0); Alkaline Phosphatase 100 U/L (39-117); Anion Gap 13 (12-20); Aspartate Amino Transferase 21 U/L (5-37); Bilirubin Total 0.4 mg/dL (0.0-1.0); Blood Urea Nitrogen 18 mg/dL (9-16); Calcium 9.4 mg/dL (8.4-10.2); Carbon Dioxide 29 mmol/L (22-29); Chloride 104 mmol/L (96-108); Cholesterol 135 mg/dL; Estimated Glomerular Filt Rate > 60; Glucose Fasting 113 mg/dL (60-99); HDL Cholesterol 43 mg/dL; LDL Cholesterol Calculated 71 mg/dl; Potassium 4.4 mmol/L (3.3-5.1); Sodium 142 mmol/L (135-145); Total Protein 6.7 g/dL (6.5-8.0); Triglycerides 105 mg/dL
[2022-11-28 18:18] LABS: Prostate Specific Antigen Scr 1.38 ng/mL (<0.05-4.0); TSH reflex Free T4 1.97 uIU/mL (0.32-4.0); Vitamin B12 545 pg/mL (200-900)
== END 2022-11-28 15:05 | disposition home or self-care (01) ==
LOC: HO.HMGCLDS 15:04
PROVIDERS: PCP Nurse Practitioner Family; Visit Provider Nurse Practitioner Family
DX: Z12.5 Encounter for screening for malignant neoplasm of prostate (principal); E53.8 Deficiency of other specified B group vitamins; E11.9 Type 2 diabetes mellitus without complications
CPT/HCPCS: 36415; 80053; 80061; 81003; 82043; 82607; 83036; 84153; 84443; 85025

== ENCOUNTER 2023-01-31 20:06 | Emergency (ER) | payer MEDICARE, MEDICAID, SELFPAY ==
--- NOTE | ~2023-01-31 | XR_ITS ---
EXAMINATION: XR chest 2V CLINICAL INFORMATION: Reason for Exam chest pain COMPARISON: Prior chest x-ray 07/11/2022 TECHNIQUE: XR chest 2V Lungs and Vielka: Small density projecting over the left upper lobe between the left third and fourth rib could be bony scapula versus lung nodule. Mild interstitial patchy opacification right upper lobe possibly mild infiltrates. Pleura: Normal. Costophrenic angles are sharp. No pneumothorax. Heart: The heart is normal in size. Mediastinum: The mediastinum is within normal limits.. Bones: Skeletal structures included are normal for patient's age. XR/XR chest 2V IMPRESSION: * Small density projecting over the left upper lobe could be a lung nodule versus bony scapula. * Mild patchy interstitial opacification right upper lobe possibly mild infiltrates. * No pleural effusion. * Consider correlation with follow-up chest x-ray in one month.
--- NOTE | ~2023-01-31 | CT_ITS ---
EXAMINATION: CT CHEST WITH CONTRAST CLINICAL INFORMATION: Pulmonary nodule on chest radiograph. Weight loss of 10 pounds. COMPARISON: Radiograph 01/23/2023. CT 07/08/2022. TECHNIQUE: Multidetector volumetric CT imaging of the chest was obtained after the administration of 65 mL of Omnipaque 350 intravenous contrast without immediate adverse reactions. Axial MIP volume rendering provided. Sagittal and coronal reformatted images were obtained. This CT examination was performed using dose optimization techniques as appropriate, variously including the following: *Automated exposure control *Adjustment of mA and/or kV according to patient size (this includes techniques or standardized protocols for targeted exams where dose is matched to indication/reason for exam; i.e. extremities or head) *Use of iterative reconstruction technique DLP: 256 mGy-cm FINDINGS: TEST CAR DRIVER: Unremarkable. LUNGS: The central airways are patent. Mild centrilobular and paraseptal emphysema at the lung apices. Mild bronchial wall thickening with scattered bronchial filling defects. No suspicious pulmonary nodule. MEDIASTINUM: Normal heart size. Coronary artery calcification. No pericardial effusion. No mediastinal lymphadenopathy. PLEURA: There is no pleural effusion. No pleural mass or thickening. No pneumothorax. AXILLA: No lymphadenopathy. UPPER ABDOMEN: Small hiatal hernia. Simple cysts in the kidneys. No specific follow-up recommended. Cholecystectomy. OSSEOUS STRUCTURES: No acute or suspicious osseous abnormality. CT/CT chest w IV con IMPRESSION: Mild emphysema. Bronchial wall thickening with scattered bronchial filling defects could be associated with acute or chronic bronchitis. No suspicious pulmonary nodule. No left upper lung opacity. Fleischner guidelines were followed.
[2023-01-31 20:07] VITALS: BP 142/83; PULSE 91; RESP 18; TEMP 36.9; O2SAT 95; BMI 24.3
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
--- NOTE | 2023-01-31 20:09 | ECG_ITS ---
Test Reason : chest pain Blood Pressure : / mmHG Vent. Rate : 080 BPM Atrial Rate : 000 BPM P-R Int : 000 ms QRS Dur : 076 ms QT Int : 342 ms P-R-T Axes : 000 019 046 degrees QTc Int : 394 ms Normal sinus rhythm Normal ECG When compared with ECG of 16-JAN-2015 18:27, No significant changes seen Referred By: Lucinda Guzman Electronically Signed By:RYAN MARTINEZ MD
[2023-01-31 20:45] LABS: MANUAL DIFF FLAG NO
[2023-01-31 20:46] LABS: Basophils Absolute Auto 0.1 X10*3/uL (0.0-0.2); Basophils Percent Auto 0.8 % (0-2); Eosinophils Absolute Auto 0.1 X10*3/uL (0.0-0.4); Eosinophils Percent Auto 2.1 % (0-4); Hematocrit 41.3 % (42.0-52.0); Hemoglobin 13.9 g/dl (14.0-18.0); Imm Gran Abs Auto 0.02 X10*3/uL (0.00-0.03); Imm Gran Pct Auto 0.3 % (0.0-0.4); Lymphocytes Absolute Auto 1.3 X10*3/uL (1.2-4.9); Lymphocytes Percent Auto 21.3 % (20-40); Mean Corpuscular HGB Conc 33.7 g/dl (31.0-36.0); Mean Platelet Volume 10.1 fL (9.4-12.4); Monocytes Absolute Auto 0.6 X10*3/uL (0.1-1.2); Monocytes Percent Auto 9.4 % (2-11); Neutrophils Absolute Auto 4.1 x10*3/uL (2.0-8.3); Neutrophils Percent Auto 66.1 % (45-73); Platelet Count 189 X10*3/uL (160-400); Red Blood Count 4.64 X10*6/uL (4.60-5.80); Red Cell Distribution Width 12.5 % (11.0-16.0); White Blood Count 6.2 X10*3/uL (4.8-10.8)
[2023-01-31 21:02] LABS: Alanine Aminotransferase 26 U/L (0-40); Albumin Level 3.8 g/dL (3.5-5.0); Alkaline Phosphatase 84 U/L (39-117); Anion Gap 16 (12-20); Aspartate Amino Transferase 19 U/L (5-37); Bilirubin Total 0.2 mg/dL (0.0-1.0); Blood Urea Nitrogen 25 mg/dL (9-16); Calcium 9.5 mg/dL (8.4-10.2); Carbon Dioxide 24 mmol/L (22-29); Chloride 103 mmol/L (96-108); Creatinine Clr Calc Pharmacy 64.2; Estimated Glomerular Filt Rate > 60; Glucose Random 177 mg/dL (60-115); Potassium 3.9 mmol/L (3.3-5.1); Sodium 139 mmol/L (135-145); Total Protein 6.6 g/dL (6.5-8.0)
[2023-01-31 21:12] LABS: Troponin-I High Sensitivity < 2.7 ng/L (<3.5-35.0)
[2023-02-01 00:27] VITALS: BP 143/83; PULSE 70; RESP 17; TEMP 36.3; O2SAT 96
--- NOTE | 2023-02-01 00:40 | PC.NURSE ---
this rn assumed care of pt from waiting room. pt calm and cooperative. placed on satellite project site monitor. awaiting to be seen by ed provider
--- NOTE | 2023-02-01 01:59 | ECG_ITS ---
Test Reason : CHEST PAIN Blood Pressure : / mmHG Vent. Rate : 074 BPM Atrial Rate : 074 BPM P-R Int : 148 ms QRS Dur : 088 ms QT Int : 364 ms P-R-T Axes : 028 025 045 degrees QTc Int : 404 ms Normal sinus rhythm Normal ECG When compared with ECG of 31-JAN-2023 20:16, Sinus rhythm has replaced Junctional rhythm Referred By: Generic ED Physician Electronically Signed By:RYAN MARTINEZ MD
--- NOTE | 2023-02-01 03:20 | PC.NURSE ---
this rn placed 20g iv in R AC. pt tolerated well. pt awaiting to be taken down to CT scan
[2023-02-01] MEDS: iohexoL 350 MG/ML 100 ML INFUS..BTL 65 ML IV (03:33)
[2023-02-01 03:41] VITALS: BP 141/94; PULSE 72; RESP 17; TEMP 36.9; O2SAT 96
--- NOTE | 2023-02-01 03:55 | PC.NURSE ---
pt ambulatory independently to restroom.
[2023-02-01 05:20] VITALS: BP 132/78; PULSE 73; RESP 12; TEMP 36.7; O2SAT 96
--- NOTE | 2023-02-01 05:25 | PC.NURSE ---
iv removed at discharge. pt calm and cooperative. vss. pt ambulatory at discharge. pt provided with discharge packet. pt verbalized understanding of discharge plan
--- NOTE | 2023-02-01 16:39 | ED_ITS ---
HPI - Chest Pain General Chief Complaint: Chest Pain Stated Complaint: chest pain Time Seen by Provider: 02/01/23 02:54 Source: patient Mode of arrival: ambulatory Limitations: no limitations Related Data Home Medications Medication Instructions Recorded Confirmed pramipexole 0.5 mg tablet mg PO BEDTIME 07/17/20 11/28/22 Previous Rx's Medication Instructions Recorded amlodipine 5 mg tablet 5 mg PO DAILY #90 tabs 04/15/22 aspirin 81 mg tablet,delayed 81 mg PO DAILY 90 days #90 tabs 04/15/22 release atorvastatin 80 mg tablet 80 mg PO DAILY #90 tabs 04/15/22 lisinopril 5 mg tablet 5 mg PO DAILY 90 days #90 tabs 04/15/22 paroxetine HCl 30 mg tablet 30 mg PO QAM #90 tabs 04/15/22 metformin 500 mg tablet 500 mg PO DAILY #90 tabs 08/26/22 cholestyramine-aspartame 4 gram 4 g PO QIDACHS #60 ea 11/28/22 oral powder for susp in a packet (Cholestyramine Light) tramadol 50 mg tablet 50 mg PO BID PRN pain #7 tabs 02/01/23 tramadol 50 mg tablet 50 mg PO DAILY #7 tabs 02/01/23 Allergies Allergy/AdvReac Type Severity Reaction Status Date / Time No Known Allergies Allergy Verified 01/31/23 20:12 [facility] Past Medical History Medical History Aortic stenosis CAD (coronary artery disease) Cervical radiculopathy Diabetes mellitus Elevated lipoprotein A level HTN (hypertension) Hyperlipidemia Neuritis Onychomycosis PAC (premature atrial contraction) PVD (peripheral vascular disease) RLS (restless legs syndrome) Vitamin B12 deficiency Surgical History History of knee surgery Family History Family History Father Bone cancer Mother Unknown family medical history Social History Social History Housing: Apartment Alcohol intake: never Patient Tobacco Use Status: Former Tobacco user Quit Date: quit 1977 Smoked in Last 30 Days: Yes e-Cigarette/Vaping Use: Never Used Second Hand Smoke Exposure: No Use of substances other than those prescribed or required for medical reasons: No Advance Directives: No Advance Directives Information Provided: Yes Current occupational status: retired Cognitive needs: No Hearing needs: No Vision needs: No Physical Exam Vital Signs: Vital Signs: Last Vital Signs Temp 98.1 F 02/01/23 05:20 Pulse 73 02/01/23 05:20 Resp 12 02/01/23 05:20 BP 132/78 02/01/23 05:20 Pulse Ox 96 02/01/23 05:20 O2 Del Method Room Air 02/01/23 05:20 BMI result Body Mass Index 24.3 Course Reevaluation(s) Reevaluation #1: Marlena called stating that physician that sent over tramadol as JULI was from [place], recent tramadol Time: 16:40 Medications Administered Discontinued Medications Generic Name Dose Route Start Last Admin Trade Name Freq PRN Reason Stop Dose Admin Iohexol 65 ml 02/01/23 03:33 02/01/23 03:33 Iohexol 350 Mg/Ml 100 Ml Infus..Btl IV 02/01/23 03:34 65 ml ONCE ONE Administration Medical Decision Making Lab Data 01/31/23 20:29 01/31/23 20:29 Labs: Lab Results 01/31/23 01/31/23 01/31/23 Range/Units 20:29 20:29 20:29 WBC 6.2 (4.8-10.8) X10*3/uL RBC 4.64 (4.60-5.80) X10*6/uL Hgb 13.9 L (14.0-18.0) g/dl Hct 41.3 L (42.0-52.0) % MCV 89.0 (80.0-98.0) fL MCH 30.0 (27.0-33.0) pg MCHC 33.7 (31.0-36.0) g/dl RDW 12.5 (11.0-16.0) % Plt Count 189 (160-400) X10*3/uL MPV 10.1 (9.4-12.4) fL Immature Gran % (Auto) 0.3 (0.0-0.4) % Neut % (Auto) 66.1 (45-73) % Lymph % (Auto) 21.3 (20-40) % [place] % (Auto) 9.4 (2-11) % Eos % (Auto) 2.1 (0-4) % Baso % (Auto) 0.8 (0-2) % Lymph # (Auto) 1.3 (1.2-4.9) X10*3/uL [place] # (Auto) 0.6 (0.1-1.2) X10*3/uL Eos # (Auto) 0.1 (0.0-0.4) X10*3/uL Baso # (Auto) 0.1 (0.0-0.2) X10*3/uL Abs Immat Gran (auto) 0.02 (0.00-0.03) X10*3/uL Absolute Neuts (auto) 4.1 (2.0-8.3) x10*3/uL Absolute Nucleated RBC 0.000 (0.0-0.012) X10*3/uL Nucleated RBC % (auto) 0.0 (0.0-0.2) /100WBC Sodium 139 (135-145) mmol/L Potassium 3.9 (3.3-5.1) mmol/L Chloride 103 (96-108) mmol/L Carbon Dioxide 24 (22-29) mmol/L Anion Gap 16 (12-20) BUN 25 H (9-16) mg/dL Creatinine 1.00 (0.5-1.4) mg/dL Estim Creat Clear Calc 64.2 Estimated GFR > 60 Random Glucose 177 H (60-115) mg/dL Calcium 9.5 (8.4-10.2) mg/dL Total Bilirubin 0.2 (0.0-1.0) mg/dL AST 19 (5-37) U/L ALT 26 (0-40) U/L Alkaline Phosphatase 84 (39-117) U/L Troponin I High Sens < 2.7 (<3.5-35.0) ng/L Total Protein 6.6 (6.5-8.0) g/dL Albumin 3.8 (3.5-5.0) g/dL Discharge Plan Discharge Clinical Impression: Atypical chest pain Patient Disposition: Home, Self-Care Instructions: Chest Pain (ED) Additional Instructions: Please follow-up with your primary care physician tomorrow. If you have any worsening or new symptoms, please return to the emergency room or call 911 Prescriptions: New tramadol 50 mg tablet 50 mg PO BID PRN (Reason: pain) Qty: 7 0RF tramadol 50 mg tablet 50 mg PO DAILY Qty: 7 0RF No Action metformin 500 mg tablet 500 mg PO DAILY Qty: 90 0RF pramipexole 0.5 mg tablet PO BEDTIME amlodipine 5 mg tablet 5 mg PO DAILY Qty: 90 3RF aspirin 81 mg tablet,delayed release (DR/EC) 81 mg PO DAILY 90 Days Qty: 90 3RF atorvastatin 80 mg tablet 80 mg PO DAILY Qty: 90 3RF lisinopril 5 mg tablet 5 mg PO DAILY 90 Days Qty: 90 3RF paroxetine HCl 30 mg tablet 30 mg PO QAM Qty: 90 3RF cholestyramine-aspartame [Cholestyramine Light] 4 gram powder in packet 4 g PO QIDACHS Qty: 60 0RF Rx Instructions: no meds 1 hr before/4-6 hr after dose Interventions: ED Discharge Assessment Last Done: 02/01/23 05:25 Discharge Date/Time: 02/01/23 05:25
== END 2023-02-01 05:25 | disposition home or self-care (01) ==
PROVIDERS: Registered Nurse Emergency; Emergency Provider Emergency Medicine; PCP Nurse Practitioner Family
DX: R07.89 Other chest pain (principal); M54.6 Pain in thoracic spine; Z87.891 Personal history of nicotine dependence; Z79.899 Other long term (current) drug therapy
CPT/HCPCS: 36415; 71046; 71260; 80053; 84484; 85025; 93005; 99284; 99285; Q9967

== ENCOUNTER → 2023-01-31 20:09 | Outpatient (BNV) | payer MEDICARE, MEDICAID, SELFPAY | PROVIDERS: Emergency Provider Emergency Medicine; PCP Nurse Practitioner Family; Visit Provider Internal Medicine Cardiovascular Disease | DX: R07.9 Chest pain, unspecified (principal) | CPT/HCPCS: 93010 ==

== ENCOUNTER → 2023-02-01 01:59 | Outpatient (BNV) | payer MEDICARE, MEDICAID, SELFPAY | PROVIDERS: Emergency Provider Emergency Medicine; PCP Nurse Practitioner Family; Visit Provider Internal Medicine Cardiovascular Disease | DX: R07.9 Chest pain, unspecified (principal) | CPT/HCPCS: 93010 ==

== ENCOUNTER 2023-03-27 09:20 | Outpatient (AMB) | payer MEDICARE, MEDICAID, SELFPAY ==
--- NOTE | 2023-03-27 09:24 | MHC.PC.OV ---
Vital Signs 03/27/23 09:25 Height 5 ft 7 in Weight 154 lb 8 oz BMI 24.2 BP 134/88 Blood Pressure Location Lt brachial Position Sitting Pulse 66 Pulse Source Pulse Oximeter Pulse Oximetry (%) 97 Oxygen Delivery Method Room Air Intake Visit Reasons: 3M follow up Allergies No Known Allergies Allergy (Verified 03/27/23 09:27) Medication List - Last Reconciled 03/27/23 by SETH Angela amlodipine 5 mg PO DAILY aspirin 81 mg PO DAILY 90 days atorvastatin 80 mg PO DAILY lisinopril 5 mg PO DAILY 90 days metformin 500 mg PO DAILY paroxetine HCl 30 mg PO QAM pramipexole mg PO BEDTIME tramadol 50 mg PO BID PRN Tobacco use date assessed: 03/27/23 Fall risk assessment: 1 Fall in past year Last assessed Fall Risk: 03/27/23 Dental Screening Dental Screen Date: 03/27/23 Did you have a dental visit in the last 12 months?: No Did you have a dental problem in the last 6 months where you did not have access to dental care?: No Was dental information given to patient?: Patient has dentist HPI 3M follow up HPI Details Pt is a diabetic, on an STORM and a statin. A1C in office today is 6.6. Microalbumin is up to date. Denies polyuria, polydipsia, does report intermittent neuropathy. Pt denies any signs and symptoms of hypoglycemia and does know how to correct it. Pt follows up with cardiology and podiatry. Pt has an eye exam today. ON LICENSE OF [facility] Medical History Onychomycosis Cervical radiculopathy Elevated lipoprotein A level Vitamin B12 deficiency RLS (restless legs syndrome) PVD (peripheral vascular disease) Neuritis PAC (premature atrial contraction) Hyperlipidemia Diabetes mellitus HTN (hypertension) CAD (coronary artery disease) Aortic stenosis Surgical History History of knee surgery Family History Father Bone cancer Mother Unknown family medical history Social History Housing: Apartment Alcohol intake: never Patient Tobacco Use Status: Former Tobacco user Quit Date: 1976 e-Cigarette/Vaping Use: Never Used Second Hand Smoke Exposure: No Current occupational status: retired Cognitive needs: No Hearing needs: No Vision needs: No Questionnaire Thrive Questionnaire Date Thrive assessed: 11/28/22 CHRISTIE-7 AMB Questionnaire CHRISTIE-7 Date CHRISTIE - 7 assessed: 11/28/22 Source: Developed by Drs. Uriah Laughlin, Serena Jacome, John Garcia and colleagues, with an educational adrienne from [employer]. Review of Systems Const Reports as per HPI Physical exam (Primary Care) Vital Signs: Last Vital Signs Pulse 66 03/27/23 09:25 BP 134/88 03/27/23 09:25 Pulse Ox 97 03/27/23 09:25 Oxygen Delivery Method Room Air 03/27/23 09:25 BMI result Body Mass Index 24.2 Tobacco/Smoking Status: Tobacco use Status Tobacco use date assessed 03/27/23 03/27/23 09:29 Patient Tobacco Use Status Former Tobacco user 03/27/23 09:29 e-Cigarette/Vaping Use Never Used 03/27/23 09:29 Thrive Assessment: Date of Thrive Assessment Date Thrive assessed 11/28/22 03/27/23 09:29 Const General: cooperative Orientation/consciousness: patient oriented x3 Resp Effort & Inspection: normal respiratory effort Auscultation: wheezes (faint) scattered wheezes Cardio Rate: regular rate Rhythm: regular rhythm Heart sounds: S1 normal heart sound present, S2 normal heart sound present and Murmur heart sound present systolic Neuro General: patient oriented x3 Extrem Other: bilat feet: + sensation with use of monofilament, onychomycosis noted bilat, partially ingrown toenails bilat, no signs of infection Psych Appearance: grossly normal Mental Status: mental status grossly normal Speech and movement: Normal speech and movement present Affect: normal affect Attitude: cooperative Thought process: Normal thought process present Thought content: Normal thought content present Insight: Good insight present (Psych) Judgement: Good judgement present (Psych) Results AMB Hemoglobin A1c AMB Hemoglobin A1c 6.6 % Last Edit by Becky Mathias CMA on 03/27/23 09:55 Results Reviewed Results Reviewed: Laboratory Last Values Hgb A1c (Clinic) 6.6 % (4.0-6.0) H 03/27/23 09:54 Assessment and Plan Assessment & Plan (1) Diabetes mellitus: Code(s): E11.9 - Type 2 diabetes mellitus without complications Plan: Labs ordered Plan The patient agreed to the use of a medical stenographer for this encounter. Scribed for SETH Beatty by Madeleine Shahid medical stenographer, on 03/27/2023 at 09:35 EST. Orders: Orders Comprehensive [place]. Panel Fast Today E11.9 - Type 2 diabetes mellitus without complications TSH reflex Free T4 Today E11.9 - Type 2 diabetes mellitus without complications Lipid Panel Today E11.9 - Type 2 diabetes mellitus without complications AMB Hemoglobin A1c Today E11.9 - Type 2 diabetes mellitus without complications Complete Blood Count Auto Diff Today E11.9 - Type 2 diabetes mellitus without complications UA CC w/rflx Micro + Cult Today E11.9 - Type 2 diabetes mellitus without complications Coding Level of Care Code Est Pt Level 3 (50670) Diagnoses Diabetes mellitus E11.9
[2023-03-27 09:25] VITALS: BP 134/88; PULSE 66; O2SAT 97; BMI 24.2
== END 2023-03-27 10:07 | disposition home or self-care (01) ==
PROVIDERS: Visit Provider Nurse Practitioner Family
DX: E11.9 Type 2 diabetes mellitus without complications (principal); Z23 Encounter for immunization
CPT/HCPCS: 83036; 90471; 90677; 99213

== ENCOUNTER 2023-05-25 19:33 | Observation (INO) | payer MEDICARE, MEDICAID, SELFPAY ==
[2023-05-25] VITALS (7 sets, daily range): BP systolic 108–148; BP diastolic 65–90; PULSE 70–87; RESP 16–20; TEMP 36.2–36.9; O2SAT 94–96; BMI 23.3
--- NOTE | ~2023-05-25 | CT_ITS ---
EXAMINATION: CT head/brain wo IV con, CT cervical spine wo IV con INDICATION INFORMATION: Reason for Exam posterior scalp laceration COMPARISON: CT brain 07/08/2022 TECHNIQUE: Separate noncontrast CT examinations of the head and cervical spine were performed. Coronal and sagittal images were created for each examination at the technologist workstation. This CT examination was performed using dose optimization techniques as appropriate, variously including the following: *Automated exposure control *Adjustment of mA and/or kV according to patient size (this includes techniques or standardized protocols for targeted exams where dose is matched to indication/reason for exam; i.e. extremities or head) *Use of iterative reconstruction technique DLP: 860 mGy-cm FINDINGS: Head: Right occipital soft tissue scalp swelling and laceration without acute underlying calvarial fracture. 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 The mastoid air cells and visualized portions of the paranasal sinuses are well aerated. There is no evidence of acute intracranial hemorrhage or territorial infarction. No abnormal mass effect or midline shift is seen. Ashley to white matter differentiation is well preserved. No extra-axial fluid collections are identified. No hydrocephalus. Proportional prominence of the ventricles and sulcal spaces is consistent with mild volume loss. Patchy periventricular and deep white matter hypoattenuation is consistent with mild small vessel ischemic changes. Cervical spine: There is no evidence of acute cervical spine fracture. Vertebral bodies remain normal in height. Loss of the usual cervical spine lordosis. Status post C4-C5 anterior spinal fusion. Mild multilevel degenerative disc disease. No pre- or paravertebral soft tissue abnormality is identified. Mild paraseptal emphysema. The thyroid gland is unremarkable. CT/CT cervical spine wo IV con IMPRESSION: 1. Right occipital soft tissue scalp swelling and laceration without acute underlying calvarial fracture. 2. No acute intracranial abnormality. 3. No cervical spine fracture or traumatic malalignment. 4. 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
--- NOTE | 2023-05-25 19:43 | ECG_ITS ---
Test Reason : SYNCOPE Blood Pressure : / mmHG Vent. Rate : 083 BPM Atrial Rate : 083 BPM P-R Int : 156 ms QRS Dur : 082 ms QT Int : 348 ms P-R-T Axes : 051 003 049 degrees QTc Int : 408 ms Normal sinus rhythm Normal ECG When compared with ECG of 01-FEB-2023 02:07, No significant change was found Referred By: Yung Rosas Electronically Signed By:KEVIN COLLADO MD
[2023-05-25 19:51] LABS: Glucose, Whole Blood 147 mg/dL (60-115)
[2023-05-25 20:29] LABS: MANUAL DIFF FLAG NO
[2023-05-25 20:30] LABS: Basophils Percent Auto 0.4 % (0-2); Eosinophils Absolute Auto 0.1 X10*3/uL (0.0-0.4); Eosinophils Percent Auto 0.9 % (0-4); Hematocrit 41.7 % (42.0-52.0); Hemoglobin 14.1 g/dl (14.0-18.0); Imm Gran Abs Auto 0.03 X10*3/uL (0.00-0.03); Imm Gran Pct Auto 0.3 % (0.0-0.4); Lymphocytes Absolute Auto 0.9 X10*3/uL (1.2-4.9); Lymphocytes Percent Auto 9.6 % (20-40); Mean Corpuscular HGB Conc 33.8 g/dl (31.0-36.0); Mean Corpuscular Hemoglobin 30.7 pg (27.0-33.0); Mean Corpuscular Volume 90.7 fL (80.0-98.0); Mean Platelet Volume 10.1 fL (9.4-12.4); Monocytes Absolute Auto 0.6 X10*3/uL (0.1-1.2); Monocytes Percent Auto 6.5 % (2-11); Neutrophils Absolute Auto 7.5 x10*3/uL (2.0-8.3); Neutrophils Percent Auto 82.3 % (45-73); Platelet Count 172 X10*3/uL (160-400); Red Cell Distribution Width 12.6 % (11.0-16.0); White Blood Count 9.1 X10*3/uL (4.8-10.8)
[2023-05-25] MEDS: Diphth,Pertus(ACell),Tet Adult 0.5 ML SYRINGE IM (20:30)
[2023-05-25 20:35] LABS: INTERNATIONAL NORM RATIO 0.9 (0.9-1.1); Prothrombin Time 11.3 SEC (11.1-13.3)
[2023-05-25 20:38] LABS: Partial Thromboplastin Time 26.9 SEC (26.0-36.4)
[2023-05-25 20:51] LABS: Alanine Aminotransferase 26 U/L (0-40); Albumin Level 4.2 g/dL (3.5-5.0); Alkaline Phosphatase 86 U/L (39-117); Anion Gap 14 (12-20); Aspartate Amino Transferase 26 U/L (5-37); Bilirubin Total 0.3 mg/dL (0.0-1.0); Blood Urea Nitrogen 22 mg/dL (9-16); Calcium 9.5 mg/dL (8.4-10.2); Carbon Dioxide 27 mmol/L (22-29); Chloride 103 mmol/L (96-108); Creatinine Clr Calc Pharmacy 75.5; Estimated Glomerular Filt Rate > 60; Glucose Random 162 mg/dL (60-115); Sodium 140 mmol/L (135-145); Total Protein 6.9 g/dL (6.5-8.0)
--- NOTE | 2023-05-25 21:33 | ED_ITS ---
HPI - Syncope General Chief Complaint: Syncope Stated Complaint: fell and hit head/head is bleeding Time Seen by Provider: 05/25/23 20:13 Source: patient Mode of arrival: EMS History of Present Illness HPI narrative: 72-year-old male states that he was cutting up caution the kitchen and suddenly fell backwards and struck his head. He denies any preceding palpitations, chest pain or shortness of breath. Currently, patient denies any recent fever, chills, GI or symptoms. Related Data Home Medications Medication Instructions Recorded Confirmed pramipexole 0.5 mg tablet mg PO BEDTIME 07/17/20 03/27/23 flash glucose scanning reader 03/28/23 (FreeStyle Krish 2 [place]) Previous Rx's Medication Instructions Recorded aspirin 81 mg tablet,delayed 81 mg PO DAILY 90 days #90 tabs 04/15/22 release atorvastatin 80 mg tablet 80 mg PO DAILY #90 tabs 04/15/22 paroxetine HCl 30 mg tablet 30 mg PO QAM #90 tabs 04/15/22 tramadol 50 mg tablet 50 mg PO BID PRN pain #7 tabs 02/01/23 flash glucose sensor (FreeStyle #1 ea 03/28/23 Krish 2 Sensor kit) metformin 500 mg tablet 500 mg PO DAILY #90 tabs 04/17/23 amlodipine 5 mg tablet 5 mg PO DAILY #90 tabs 05/21/23 lisinopril 5 mg tablet 5 mg PO DAILY 90 days #90 tabs 05/21/23 Allergies Allergy/AdvReac Type Severity Reaction Status Date / Time No Known Allergies Allergy Verified 05/25/23 19:47 Review of Systems 2 Review of Systems: Pertinent positives and negatives as stated in HPI PMFSH Past Medical History Source: nursing notes reviewed Medical History Onychomycosis Cervical radiculopathy Elevated lipoprotein A level Vitamin B12 deficiency RLS (restless legs syndrome) PVD (peripheral vascular disease) Neuritis PAC (premature atrial contraction) Hyperlipidemia Diabetes mellitus HTN (hypertension) CAD (coronary artery disease) Aortic stenosis Surgical History History of knee surgery Family History Family History Father Bone cancer Mother Unknown family medical history Social History Social History Housing: Apartment Alcohol intake: never Patient Tobacco Use Status: Former Tobacco user Quit Date: 1976 e-Cigarette/Vaping Use: Never Used Second Hand Smoke Exposure: No Advance Directives: No Advance Directives Information Provided: No Current occupational status: retired Cognitive needs: No Hearing needs: No Vision needs: No Physical Exam 2 Vital Signs: Vital Signs: Last Vital Signs Temp 98.4 F 05/25/23 23:13 Pulse 79 05/25/23 23:13 Resp 20 05/25/23 23:13 BP 144/89 H 05/25/23 23:13 Pulse Ox 96 05/25/23 23:13 O2 Del Method Room Air 05/25/23 23:13 BMI result Body Mass Index 23.3 VITAL SIGNS: Reviewed. GENERAL: Well developed, well nourished, in no acute distress. HEAD: Normocephalic/3 cm laceration to the mid occiput EYES: PERRLA, EOMI EARS: Ext canals without abnormality NOSE: Nares patent bilateral OROPHARYNX: no oral lesions noted, posterior pharynx clear NECK: Supple, no adenopathy LUNGS: Normal breath sounds. No adventitious sounds or accessory muscle use. SpO2<94> CARDIOVASCULAR: Regular rate and rhythm without noted murmurs, no JVD or lower extremity edema. ABDOMEN: Soft, non-tender, non-distended with bowel sounds. MUSCULOSKELETAL: No tenderness, deformities, or effusions noted on gross inspection. EXTREMITIES: No cyanosis, clubbing or edema. SKIN: Inspection of the skin reveals no rashes NEUROLOGIC: Alert and oriented x 4. Strength and sensation to light touch were grossly intact x 4, cranial nerves 2-12 are grossly intact.. Medications Administered Discontinued Medications Generic Name Dose Route Start Last Admin Trade Name Freq PRN Reason Stop Dose Admin Diphtheria/Tetanus/Acell Pertussis 0.5 ml 05/25/23 19:45 05/25/23 20:30 Diphth,Pertus(Acell),Tet Adult 0.5 Ml Syringe IM 05/25/23 19:46 0.5 ml .ONCE ONE Administration Medical Decision Making Medical Decision Making MDM Narrative: This is a 72-year-old male with history and clinical presentation of syncope who arrives by EMS and will rule out infection/anemia/electrolyte abnormalities/arrhythmia. I reviewed all investigations and hematologic indices are negative for leukocytosis but there is a noted left shift of unclear significance as patient is afebrile. There is no evidence of anemia or thrombocytopenia. Coagulation studies are within normal limits. Chemistry indices are grossly within normal limits and there is no demonstrated JOSTIN her electrolytes/liver enzymes derangements. High sensitivity troponin is detectable but not elevated and there are no acute changes on EKG. Urinalysis is negative for UTI or hematuria. There is no evidence to suggest that patient suffered from hypoglycemia. CT of the head is negative for intracranial hemorrhage or mass effect and otherwise my interpretation is in agreement with radiology's impression. Cervical spine is negative for evidence to suggest fracture or subluxation. My interpretation is that given patient's age with a syncopal episode not well explained by evidence to suggest infection/anemia and although no significant arrhythmia noted on workup here I discussed this case with the inpatient hospitalist who accepts admission. Differential Diagnosis Differential Diagnoses: The differential diagnosis associated with the presentation includes Please see the discussion above Admission/Observation Consideration of admission/observation: Escalation of care including admission/observation considered Please see the discussion above Consult Healthcare Provider Management of the patient was discussed with: Hospitalist Please see the discussion above Lab Data MDM Lab Attestation statement: I reviewed the patient's lab results. Please see the discussion above 05/25/23 20:22 05/25/23 20:22 Labs: Lab Results 05/25/23 05/25/23 05/25/23 Range/Units 19:48 20:22 23:15 WBC 9.1 (4.8-10.8) X10*3/uL RBC 4.60 (4.60-5.80) X10*6/uL Hgb 14.1 (14.0-18.0) g/dl Hct 41.7 L (42.0-52.0) % MCV 90.7 (80.0-98.0) fL MCH 30.7 (27.0-33.0) pg MCHC 33.8 (31.0-36.0) g/dl RDW 12.6 (11.0-16.0) % Plt Count 172 (160-400) X10*3/uL MPV 10.1 (9.4-12.4) fL Immature Gran % (Auto) 0.3 (0.0-0.4) % Neut % (Auto) 82.3 H (45-73) % Lymph % (Auto) 9.6 L (20-40) % [place] % (Auto) 6.5 (2-11) % Eos % (Auto) 0.9 (0-4) % Baso % (Auto) 0.4 (0-2) % Lymph # (Auto) 0.9 L (1.2-4.9) X10*3/uL [place] # (Auto) 0.6 (0.1-1.2) X10*3/uL Eos # (Auto) 0.1 (0.0-0.4) X10*3/uL Baso # (Auto) 0.0 (0.0-0.2) X10*3/uL Abs Immat Gran (auto) 0.03 (0.00-0.03) X10*3/uL Absolute Neuts (auto) 7.5 (2.0-8.3) x10*3/uL Absolute Nucleated RBC 0.000 (0.0-0.012) X10*3/uL Nucleated RBC % (auto) 0.0 (0.0-0.2) /100WBC PT 11.3 (11.1-13.3) SEC INR 0.9 (0.9-1.1) APTT 26.9 (26.0-36.4) SEC Sodium 140 (135-145) mmol/L Potassium 4.0 (3.3-5.1) mmol/L Chloride 103 (96-108) mmol/L Carbon Dioxide 27 (22-29) mmol/L Anion Gap 14 (12-20) BUN 22 H (9-16) mg/dL Creatinine 0.91 (0.5-1.4) mg/dL Estim Creat Clear Calc 75.5 Estimated GFR > 60 POC Glucose 147 H (60-115) mg/dL Random Glucose 162 H (60-115) mg/dL Calcium 9.5 (8.4-10.2) mg/dL Total Bilirubin 0.3 (0.0-1.0) mg/dL AST 26 (5-37) U/L ALT 26 (0-40) U/L Alkaline Phosphatase 86 (39-117) U/L Troponin I High Sens 3.0 (<3.5-35.0) ng/L Total Protein 6.9 (6.5-8.0) g/dL Albumin 4.2 (3.5-5.0) g/dL Urine Color Yellow Urine Appearance Clear Urine pH 6.5 (5.0-9.0) Ur Specific [place] 1.025 (1.005-1.025) Urine Protein Negative (Neg-Trace) mg/dL Urine Glucose (UA) Negative (Negative) mg/dL Urine Ketones Negative (Negative) mg/dL Urine Blood Negative (Negative) Urine Nitrite Negative (Negative) Ur Leukocyte Esterase Negative (Negative) Independent Interpretation I performed an independent interpretation of an: EKG Interpretation: Normal sinus rhythm, HR-83, no STEMI, AL/QRS/QTC is within normal limits. Radiology Impression Discussion of test interpretation with radiology: I have reviewed the radiologist's reading. Radiologist Impression: Please see the discussion above External Record Review External record reviewed: Outpatient record, Prior outpatient labs and Prior outpatient radiology Chronic Conditions Patient?s care impacted by: Diabetes and Hypertension Procedures Laceration Laceration 1: Site: scalp Size (cm): 3 Description: stellate Depth: simple, single layer Pre-repair: wound explored, irrigated extensively and deep structures intact Skin layer closed with: other (Marie, 2) Critical Care Time Critical Care Time Critical Care Time: Yes Total Critical Care Time: 30 Attestation: I personally attest to this time spent taking care of the patient. Discharge Plan Discharge Clinical Impression: Syncope, Laceration of scalp Patient Disposition: Admitted As Inpatient
[2023-05-25 23:21] LABS: Appearance Urine Clear; Color Urine Yellow; Glucose Urine UA Negative (Negative); Leukocyte Esterase Urine Negative (Negative); Nitrite Urine Negative (Negative); PH 6.5 (5.0-9.0); Specific Gravity - Urine 1.025 (1.005-1.025); Urine Blood Negative (Negative); Urine Ketones Negative (Negative); Urine Protein Negative (Neg-Trace)
[2023-05-26] VITALS (13 sets, daily range): BP systolic 123–163; BP diastolic 71–96; PULSE 68–92; RESP 13–20; TEMP 36.4–37.4; O2SAT 92–97
--- NOTE | 2023-05-26 00:07 | P.HPHOSP_ITS ---
History of Present Illness Date of Service: 05/26/23 Chief Complaint: Syncope This is a 72-year-old male with pertinent history of essential hypertension, tif-mhygecy-haqdovspv diabetes mellitus, mood disorder, mixed hyperlipidemia, moderate aortic stenosis, coronary artery disease who presents to the emergency department for evaluation of syncope. Patient states he was cutting squash in his kitchen and the next thing he knew he was on the kitchen floor. Briefly lost consciousness and found himself on the kitchen floor with bleeding from his scalp. No dizziness/lightheadedness, chest pain, palpitations prior to the syncopal episode. No jerking movement of extremities, tongue bite, urinary or bowel incontinence. No similar episodes in the past. Patient denies fever, chills, shortness of breath, nausea, vomiting, abdominal pain, changes in urinary or bowel habits. In the emergency department, patient was found to have laceration of the scalp which was stapled by ER provider Review of Systems 2 Constitutional: Constitutional: Reports no additional constitutional complaints Cardiovascular: Cardiovascular: Reports no additional cardiovascular complaints and Reports syncope Respiratory: Respiratory: Reports no additional respiratory complaints Gastrointestinal: Gastrointestinal: Reports no additional gastrointestinal complaints Genitourinary: Genitourinary: Reports no additional male genitourinary complaints Neurologic: Reports syncope [facility] Medical History Onychomycosis Cervical radiculopathy Elevated lipoprotein A level Vitamin B12 deficiency RLS (restless legs syndrome) PVD (peripheral vascular disease) Neuritis PAC (premature atrial contraction) Hyperlipidemia Diabetes mellitus HTN (hypertension) CAD (coronary artery disease) Aortic stenosis Family History Father Bone cancer Mother Unknown family medical history Surgical History History of knee surgery Social History Housing: Apartment Alcohol intake: never Patient Tobacco Use Status: Former Tobacco user Quit Date: 1976 e-Cigarette/Vaping Use: Never Used Second Hand Smoke Exposure: No Advance Directives: No Advance Directives Information Provided: No Current occupational status: retired Cognitive needs: No Hearing needs: No Vision needs: No Meds Allergies Allergy/AdvReac Type Severity Reaction Status Date / Time No Known Allergies Allergy Verified 05/25/23 19:47 Home Medications Medication Instructions Recorded Confirmed Last Taken Type pramipexole 0.5 mg tablet mg PO BEDTIME 07/17/20 03/27/23 Unknown History flash glucose scanning reader 03/28/23 Unknown History ([employer] Krish 2 [place]) Physical Exam 2 Vital Signs and Narrative: Vital Signs: Last Vital Signs Temp 98.4 F 05/25/23 23:13 Pulse 79 05/25/23 23:13 Resp 20 05/25/23 23:13 BP 144/89 H 05/25/23 23:13 Pulse Ox 96 05/25/23 23:13 O2 Del Method Room Air 05/25/23 23:13 BMI result Body Mass Index 23.3 Middle-aged male lying in bed in no distress Neck supple, no JVD, right occipital scalp covered with dressing Regular rate and rhythm, S1-S2 heard Regular breath sounds bilaterally, no wheezing or crackles appreciated Abdomen soft nontender, no guarding, no rigidity Patient is awake, alert and oriented to self, place, time and person ; no focal motor deficit Psych: Normal mood No pedal edema Results Labs 05/25/23 20:22 05/25/23 20:22 Labs: Laboratory Results - last 24 hr 05/25/23 05/25/23 05/25/23 19:48 20:22 23:15 MCV 90.7 MCH 30.7 MCHC 33.8 RDW 12.6 Plt Count 172 MPV 10.1 Immature Gran % (Auto) 0.3 Neut % (Auto) 82.3 H Lymph % (Auto) 9.6 L [place] % (Auto) 6.5 Eos % (Auto) 0.9 Baso % (Auto) 0.4 Lymph # (Auto) 0.9 L [place] # (Auto) 0.6 Eos # (Auto) 0.1 Baso # (Auto) 0.0 Abs Immat Gran (auto) 0.03 Absolute Neuts (auto) 7.5 Absolute Nucleated RBC 0.000 Nucleated RBC % (auto) 0.0 PT 11.3 INR 0.9 APTT 26.9 Anion Gap 14 Estim Creat Clear Calc 75.5 Estimated GFR > 60 POC Glucose 147 H Random Glucose 162 H Calcium 9.5 Total Bilirubin 0.3 AST 26 ALT 26 Alkaline Phosphatase 86 Total Protein 6.9 Albumin 4.2 Urine Color Yellow Urine Appearance Clear Urine pH 6.5 Ur Specific [place] 1.025 Urine Protein Negative Urine Glucose (UA) Negative Urine Ketones Negative Urine Blood Negative Urine Nitrite Negative Ur Leukocyte Esterase Negative Imaging Radiologist's Impressions: Impressions Cervical Spine CT 05/25/23 20:11 IMPRESSION: 1. Right occipital soft tissue scalp swelling and laceration without acute underlying calvarial fracture. 2. No acute intracranial abnormality. 3. No cervical spine fracture or traumatic malalignment. 4. 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 Head CT 05/25/23 20:11 IMPRESSION: 1. Right occipital soft tissue scalp swelling and laceration without acute underlying calvarial fracture. 2. No acute intracranial abnormality. 3. No cervical spine fracture or traumatic malalignment. 4. 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 Assessment and Plan (1) Syncope: Status: Acute Plan This is a 72-year-old male with pertinent history of essential hypertension, ntu-zucrtot-oklbdoxdm diabetes mellitus, mood disorder, mixed hyperlipidemia, moderate aortic stenosis, coronary artery disease who presents to the emergency department for evaluation of syncope. #. Syncope: Unclear etiology. Will admit patient with cardiac monitoring. Obtain orthostatic vital signs. Does have a history of moderate aortic stenosis. Consulting Cardiology and obtaining echo. #. Laceration of the scalp due to fall in the setting of above: Right occipital scalp area stapled by ER physician. Outpatient follow-up for removal #. Essential hypertension: Continue home antihypertensives #. Tme-xckyfux-gsizxttqt diabetes mellitus: Initiating Accu-Cheks with sliding scale insulin #. Coronary artery disease: On antiplatelet agent and high-intensity statin #. Mood disorder: Continue home mood stabilizers Med rec pending DVT prophylaxis: Lovenox Quality Stroke Does the patient have a stroke diagnosis?: No VTE Prior VTE?: No VTE Risk Level:: Medical - moderate - high VTE Device Contraindication: Treatment Not Indicated VTE Drug Contraindication: N/A - Med Ordered
--- NOTE | 2023-05-26 04:22 | MHC.EDTECH ---
0400 rounding done ,vitals taken ,Pt said he was hungry ,had 2 Pudding for snack .
[2023-05-26 05:35] LABS: Hematocrit 39.9 % (42.0-52.0); Hemoglobin 13.2 g/dl (14.0-18.0); Mean Corpuscular HGB Conc 33.1 g/dl (31.0-36.0); Mean Corpuscular Hemoglobin 30.4 pg (27.0-33.0); Mean Corpuscular Volume 91.9 fL (80.0-98.0); Mean Platelet Volume 10.5 fL (9.4-12.4); Platelet Count 164 X10*3/uL (160-400); Red Blood Count 4.34 X10*6/uL (4.60-5.80); Red Cell Distribution Width 12.7 % (11.0-16.0); White Blood Count 6.1 X10*3/uL (4.8-10.8)
[2023-05-26 05:41] LABS: Anion Gap 13 (12-20); Blood Urea Nitrogen 17 mg/dL (9-16); Carbon Dioxide 27 mmol/L (22-29); Chloride 102 mmol/L (96-108); Estimated Glomerular Filt Rate > 60; Glucose Random 203 mg/dL (60-115); Potassium 3.6 mmol/L (3.3-5.1); Sodium 138 mmol/L (135-145)
--- NOTE | 2023-05-26 06:24 | PHA.MEDREC ---
Pharmacy Consult ? Medication Reconciliation Pharmacy has completed the medication reconciliation. Med rec done by nursing was updated with claim history and provider notes from 03/27.
--- NOTE | 2023-05-26 06:41 | MHC.EDTECH ---
Patient Orthostatics vitals taken and blood sugar check ,Pt was given his Breakfast tray ,but refused to eat whats on tray ,kitchen was called to bring Pt coffee and wheat toast .
[2023-05-26 06:47] LABS: Glucose, Whole Blood 111 mg/dL (60-115)
--- NOTE | 2023-05-26 07:16 | CA_ITS ---
Transthoracic Echocardiogram Patient (Last, First, Middle): Uriah Ramires A Gender: Male Date of : 1950 Age: 72 Procedure Date: 05/26/2023 Procedure Type: Transthoracic Echocardiogram Location: ER Height: 175.26 cm Weight: 71.67 kg BSA: 1.87 m2 Heart Rate: bpm BP: 134 / 96 mmHg Director Ehs: ANNIA/NABIL Referring MD: Vidhya Trejo NP Symptoms: SYNCOPE Study Quality: Adequate Conclusions: - Normal left ventricular size and systolic function. The visually estimated ejection fraction is between 60-65%. - Normal right ventricular cavity size and systolic function. - There is mild to moderate aortic valve stenosis. - There is no evidence of pericardial effusion. Findings Left Ventricle Normal left ventricular size and systolic function. The visually estimated ejection fraction is between 60-65%. There is no evidence of regional wall motion abnormalities. Diastolic function is normal for age. There is mild septal asymmetric hypertrophy. Right Ventricle Normal right ventricular cavity size and systolic function. Atria The left atrium is normal in size. Aortic Valve There is moderate calcification of the aortic valve. There is mild to moderate aortic valve stenosis. The peak aortic velocity is 2.59 m/s. The aortic valve area is 1.48 cm2. There is trace (trivial) aortic valve regurgitation. Mitral Valve The mitral valve appears normal. There is no mitral valve regurgitation. There is no mitral valve stenosis. Pulmonic Valve Normal pulmonic valve structure and function. There is no pulmonic valve regurgitation. Tricuspid Valve Normal tricuspid valve structure. There is trace tricuspid valve regurgitation. Tricuspid regurgitation envelope is inadequate for calculation of right ventricular systolic pressure. Normal right atrial pressure. Great Vessels There is mild dilatation of the ascending aorta measuring 3.60 cm. The visualized portions of the pulmonary artery and branches are normal. Venous The inferior vena cava is normal in size and collapses greater than 50% with inspiration. Pericardium/Pleural There is no evidence of pericardial effusion. Prior Study Comparison No significant change compared to prior study dated: 05/15/2022. Measurements 2D Linear Measurements IVSd: 1.18 0.6-0.9/0.6-1.0 cm LVIDd: 4.55 3.9-5.3/4.2-5.9 cm LVIDd Index: 2.43 2.4-3.2/2.2-3.1 cm/m2 LVIDs: 2.75 2.0-3.6 cm LVPWd: 1.02 0.7-1.1 cm LA Diam: 3.40 2.7-3.8/3.0-4.0 cm LAIDs Index: 1.82 1.5-2.3 cm/m2 LV Mass: 221.88 67-162/88-224 g LV Mass Index: 118.65 43-95/49-115 g/m2 LVOT Diam: 2.20 3.0+(-)1.3 cm Mitral Valve MV Pk E: 0.68 MV PK A: 0.92 MV Decel Time: 221.00 E/A: 0.70 E'Lateral: 8.81 E'Medial: 6.96 E/E' Med: 9.70 E/E' Lat: 7.70 PHT: 65.00 MVA PHT: 3.38 Decel [place]: 3.07 Aortic Valve AoV Pk [place]: 2.59 AoV Mn [place]: 1.81 AoV VTI: 0.47 AoV Pk Grad: 27.00 Aov Mn Grad: 15.00 MERRY Cont.VTI: 1.48 LVOT LVOT Pk [place]: 0.97 LVOT Mn [place]: 0.65 LVOT VTI: 0.18 LVOT Pk Grad: 4.00 LVOT Mn Grad: 2.00 LVOT Diam: 2.20 LVOT Area: 3.80 Diastolic Function MV Pk E: 0.68 MV Pk A: 0.92 E/A: 0.70 E'Medial: 6.96 E/E' Med: 9.70 E' Laterial: 8.81 E/E' Lat: 7.70 Right Ventricle TAPSE (mm): 25.00 TVS' [place]: 15.10 Tricuspid Valve TR Pk [place]to: 2.30 TR Pk Grad: 21.00 Great Vessels Aorta Sinus of Valsalva: 2.80 2.0-3.5 cm Ao Asc: 3.60 2.1-3.4 cm Pulmonary Valve PV Pk [place]to: 1.21 Peak PV Grad: 6.00 Updated in Other Vendor System with Status of Final Babar Dumont MD electronically signed on 05/26/2023 4:39:12 PM with status of Final
[2023-05-26] MEDS: 0.9 % Sodium Chloride Flush 3 ML SYRINGE IVFLUSH ×3 (07:25→20:30)
--- NOTE | 2023-05-26 07:30 | PC.NURSE ---
PT IS A/O X 4 NO SOB/GEOVANNA NOTED SPEAKS IN FULL SENTENCES. PT HAS SALO TO POST HEAD. LUNGS R SIDE - DIMINISHED, L SIDE - CTA. HEART SOUNDS - REGULAR. NO EDEMA NOTED . PT AWARE OF PLAN OF CARE.
[2023-05-26] MEDS: Acetaminophen 325 MG TABLET 650 MG PO ×2 (07:40→23:50)
[2023-05-26] MEDS: Enoxaparin Sodium 40 MG/0.4 ML SYRINGE SUBCUT (07:41)
--- NOTE | 2023-05-26 08:26 | PM.EVENT ---
Event Note Date of Service: 05/26/23 Event Note: This is a 72-year-old male with pertinent history of essential hypertension, wcf-mviapto-qiqsnncqf diabetes mellitus, mood disorder, mixed hyperlipidemia, moderate aortic stenosis, coronary artery disease who presents to the emergency department for evaluation of syncope. Syncope Unclear etiology. cardiac monitoring. Obtain orthostatic vital signs. history of moderate aortic stenosis. Consulting Cardiology and obtaining echo. Laceration of the scalp due to fall in the setting of above Right occipital scalp area stapled by ER physician. Outpatient follow-up for removal Essential hypertension Continue home antihypertensives Eei-rulvgfh-fmlymscdp diabetes mellitus Initiating Accu-Cheks with sliding scale insulin Coronary artery disease On antiplatelet agent and high-intensity statin Mood disorder Continue home mood stabilizers DVT prophylaxis with Lovenox Attending Dr. Lorenzo Full code Time Spent With Patient Time: Total time managing care of this patient today ____ minutes.
--- NOTE | 2023-05-26 09:17 | MHC.CM.PN ---
PT REPORTS HE LIVES ALONE AND IS INDEPENDENT WITH CARE HE DENIES USE OF DME OR HOME SERVICES PT REPORTS HE WAS NOT FEELING WEAK OR UNSTEADY PRIOR TO FALL, SO DOES NOT FEEL STR WILL BE NEEDED HE REPORTS HE WOULD BE WILLING TO HAVE PT AT HOME IF INDICATED HE SAYS HIS SISTER IS HIS HCP, COPY REQUESTED PCP: [facility] OBSERVATION NOTICE DELIVERED DCP: HOME ? [facility] P[facility] CAR IS IN THE LOT
--- NOTE | 2023-05-26 09:28 | PC.NURSE ---
FLOOR SANDER AT BEDSIDE PT AWARE OF PLAN OF CARE.
[2023-05-26] MEDS: amLODIPine Besylate 5 MG TABLET PO (09:34)
[2023-05-26] MEDS: Atorvastatin Calcium 80 MG TABLET PO (09:35)
[2023-05-26] MEDS: lisinopriL 5 MG TABLET PO (09:35)
[2023-05-26] MEDS: metFORMIN HCl 500 MG TABLET PO (09:35)
[2023-05-26] MEDS: PARoxetine HCL 30 MG TABLET PO (11:27)
--- NOTE | 2023-05-26 11:49 | PC.NURSE ---
this RN resumed care of pt at this time. pt verbalizing no pain at this time. POC = 130mg/dL - no insulin coverage needed at this time. nsr on the property assessment monitor. pt awaiting echo in no apparent distress w/ lights dimmed at this time. respirations even and unlabored at this time. call holland placed within reach.
--- NOTE | 2023-05-26 12:37 | P.CONCA_ITS ---
History of Present Illness History of Present Illness Date of Service: 05/26/23 Requesting physician: Vidhya Trejo Chief complaint: Syncope Narrative: 72-year-old gentleman who has history of aortic valve stenosis, premature atrial contractions, coronary disease, hypertension, hyperlipidemia and diabetes. He is presenting with syncope. He said he was standing cutting some vegetables and next moment found himself on the floor with bleeding from his head. It appears he had edge of the table before he fell to the ground. He does not have any recollection of the incident. In particular denying any chest discomfort, shortness of breath, dizziness or palpitations. He had 1 episode where he fell early July when he saw Dr. Mayorga in the office. He is saying at that time he did not pass out and just tripped and fell. When he woke up he was not confused and knew where he was. He also did not have any urinary or fecal incontinence or tongue bite. No history of seizures previously. No current or previous history of alcohol is some. Previous echo from 2021 showed rbpq-wj-vtjrdyha aortic valve stenosis and mild aortic regurgitation. [facility]LY [facility], [facility] Past Medical History Medical History Onychomycosis Cervical radiculopathy Elevated lipoprotein A level Vitamin B12 deficiency RLS (restless legs syndrome) PVD (peripheral vascular disease) Neuritis PAC (premature atrial contraction) Hyperlipidemia Diabetes mellitus HTN (hypertension) CAD (coronary artery disease) Aortic stenosis Family History Family History Father Bone cancer Mother Unknown family medical history Surgical History Surgical History History of knee surgery Social History Social History Housing: Apartment Alcohol intake: never Patient Tobacco Use Status: Former Tobacco user Quit Date: 1976 e-Cigarette/Vaping Use: Never Used Second Hand Smoke Exposure: No Advance Directives: No Advance Directives Information Provided: No Nutrition Risks: No Nutritional Risk service: No Current occupational status: retired Cognitive needs: No Hearing needs: No Vision needs: No Meds Allergies Allergy/AdvReac Type Severity Reaction Status Date / Time No Known Allergies Allergy Verified 05/25/23 19:47 Active Medications: Current Medications Acetaminophen (Acetaminophen 325 Mg Tablet) 650 mg PO Q6H PRN PRN Reason: Pain, Mild (Pain Scale 1-3) Last Admin: 05/26/23 07:40 Dose: 650 mg Amlodipine Besylate (Amlodipine Besylate 5 Mg Tablet) 5 mg PO DAILY [facility]; Protocol Last Admin: 05/26/23 09:34 Dose: 5 mg Atorvastatin Calcium (Atorvastatin Calcium 80 Mg Tablet) 80 mg PO DAILY [facility] Last Admin: 05/26/23 09:35 Dose: 80 mg Dextrose (Dextrose 50 % 25 Gm/50 Ml Syringe) 25 gm IVPUSH Q15M PRN; Protocol PRN Reason: per Hypoglycemia Standing Ord. Enoxaparin Sodium (Enoxaparin Sodium 40 Mg/0.4 Ml Syringe) 40 mg SUBCUT Q24H [facility] Last Admin: 05/26/23 07:41 Dose: 40 mg Glucose (Glucose Gel 15 Gm Gel..Gram.) 15 gm PO Q15M PRN; Protocol PRN Reason: per Hypoglycemia Standing Ord. Insulin Human Lispro (Insulin Lispro 100 Unit/Ml 3 Ml Vial) 0 unit SUBCUT QIDACHS [facility]; Protocol Last Admin: 05/26/23 11:49 Dose: Not Given Lisinopril (Lisinopril 5 Mg Tablet) 5 mg PO DAILY [facility]; Protocol Last Admin: 05/26/23 09:35 Dose: 5 mg Melatonin (Melatonin 3 Mg Tablet) 6 mg PO BEDTIME PRN PRN Reason: Insomnia Metformin HCl (Metformin Hcl 500 Mg Tablet) 500 mg PO DAILY [facility] Last Admin: 05/26/23 09:35 Dose: 500 mg Ondansetron HCl (Ondansetron Hcl 4 Mg/2 Ml Vial) 4 mg IVPUSH Q8H PRN PRN Reason: Nausea and Vomiting Paroxetine HCl (Paroxetine Hcl 30 Mg Tablet) 30 mg PO DAILY [facility] Last Admin: 05/26/23 11:27 Dose: 30 mg Sodium Chloride (0.9 % Sodium Chloride Flush 3 Ml Syringe) 3 ml IVFLUSH QSHIFT [facility] Last Admin: 05/26/23 07:25 Dose: 3 ml Home Medications Medication Instructions Recorded Confirmed Last Taken Type flash glucose scanning reader 03/28/23 Unknown History ([employer] Krish 2 [place]) aspirin 81 mg tablet,delayed 81 mg PO DAILY 05/26/23 05/26/23 Unknown History release atorvastatin 80 mg tablet 80 mg PO DAILY 05/26/23 05/26/23 Unknown History paroxetine HCl 30 mg tablet 30 mg PO DAILY 05/26/23 05/26/23 Unknown History Physical Exam 2 Vital Signs: Vital Signs: Last Vital Signs Temp 98.4 F 05/26/23 10:43 Pulse 84 05/26/23 12:14 Resp 13 05/26/23 12:14 BP 149/88 H 05/26/23 12:14 Pulse Ox 96 05/26/23 12:14 O2 Del Method Room Air 05/26/23 10:43 BMI result Body Mass Index 23.3 GENERAL APPEARANCE: in no acute distress, pleasant. Bandage on forehead. NECK: no carotid bruit, no jugular venous distention. SKIN: no suspicious lesions, warm and dry. HEART: Systolic murmur aortic area, regular rate and rhythm. LUNGS: clear to auscultation bilaterally. ABDOMEN: soft, nontender. EXTREMITIES: no edema. PERIPHERAL PULSES: equal. NEUROLOGIC: No gross deficits, AAO X 3 Objective Labs and Meds 05/26/23 05:14 05/26/23 05:14 Lab results: Laboratory Results - last 24 hr 05/25/23 05/25/23 05/25/23 19:48 20:22 23:15 WBC 9.1 RBC 4.60 Hgb 14.1 Hct 41.7 L MCV 90.7 MCH 30.7 MCHC 33.8 RDW 12.6 Plt Count 172 MPV 10.1 Immature Gran % (Auto) 0.3 Neut % (Auto) 82.3 H Lymph % (Auto) 9.6 L [place] % (Auto) 6.5 Eos % (Auto) 0.9 Baso % (Auto) 0.4 Lymph # (Auto) 0.9 L [place] # (Auto) 0.6 Eos # (Auto) 0.1 Baso # (Auto) 0.0 Abs Immat Gran (auto) 0.03 Absolute Neuts (auto) 7.5 Absolute Nucleated RBC 0.000 Nucleated RBC % (auto) 0.0 PT 11.3 INR 0.9 APTT 26.9 Sodium 140 Potassium 4.0 Chloride 103 Carbon Dioxide 27 Anion Gap 14 BUN 22 H Creatinine 0.91 Estim Creat Clear Calc 75.5 Estimated GFR > 60 POC Glucose 147 H Random Glucose 162 H Calcium 9.5 Total Bilirubin 0.3 AST 26 ALT 26 Alkaline Phosphatase 86 Troponin I High Sens 3.0 Total Protein 6.9 Albumin 4.2 Urine Color Yellow Urine Appearance Clear Urine pH 6.5 Ur Specific [place] 1.025 Urine Protein Negative Urine Glucose (UA) Negative Urine Ketones Negative Urine Blood Negative Urine Nitrite Negative Ur Leukocyte Esterase Negative 05/26/23 05/26/23 05:14 06:41 WBC 6.1 RBC 4.34 L Hgb 13.2 L Hct 39.9 L MCV 91.9 MCH 30.4 MCHC 33.1 RDW 12.7 Plt Count 164 MPV 10.5 Immature Gran % (Auto) Neut % (Auto) Lymph % (Auto) [place] % (Auto) Eos % (Auto) Baso % (Auto) Lymph # (Auto) [place] # (Auto) Eos # (Auto) Baso # (Auto) Abs Immat Gran (auto) Absolute Neuts (auto) Absolute Nucleated RBC 0.000 Nucleated RBC % (auto) 0.0 PT INR APTT Sodium 138 Potassium 3.6 Chloride 102 Carbon Dioxide 27 Anion Gap 13 BUN 17 H Creatinine 0.87 Estim Creat Clear Calc 79.0 Estimated GFR > 60 POC Glucose 111 Random Glucose 203 H Calcium 9.0 Total Bilirubin AST ALT Alkaline Phosphatase Troponin I High Sens Total Protein Albumin Urine Color Urine Appearance Urine pH Ur Specific [place] Urine Protein Urine Glucose (UA) Urine Ketones Urine Blood Urine Nitrite Ur Leukocyte Esterase Imaging Radiologist's impression: Impressions Cervical Spine CT 05/25/23 20:11 IMPRESSION: 1. Right occipital soft tissue scalp swelling and laceration without acute underlying calvarial fracture. 2. No acute intracranial abnormality. 3. No cervical spine fracture or traumatic malalignment. 4. 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 Head CT 05/25/23 20:11 IMPRESSION: 1. Right occipital soft tissue scalp swelling and laceration without acute underlying calvarial fracture. 2. No acute intracranial abnormality. 3. No cervical spine fracture or traumatic malalignment. 4. 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 Assessment and Plan (1) HTN (hypertension): Status: Acute (2) Aortic stenosis: Status: Acute (3) Syncope: Status: Acute Plan 72-year-old gentleman who is here for syncope. He has xwpx-ea-xtnfaxal aortic valve stenosis based on echocardiography from last year. Etiology of syncope is unclear. Check orthostatics. He has been having up to 2.4 seconds pauses on telemetry. Will monitor on telemetry and if no obvious issues then he will need cardiac event monitor as he goes home. Repeat echocardiography to reassess aortic valve. Check D-dimer and if it is elevated consider doing CT pulmonary angiogram. We will follow along with you. Thank you for allowing me to participate in the care of your patient. Please feel free to contact me if you have any questions. Procedures Date of Service Date of Service: 05/26/23
[2023-05-26 13:29] LABS: Glucose, Whole Blood 130 mg/dL (60-115)
--- NOTE | 2023-05-26 13:46 | PC.NURSE ---
pt became increasingly agitated d/t what he got for food from cafeteria - pt changed into his personal clothing, ripped out his IV and was stating that he was leaving facility. windshield technicianbob paez and this RN deescalated situation and pt now sitting comfortably in bed in no apparent distress. new meal from cafeteria placed. new 20gIV placed in left forearm w/o difficulty. call holland placed within reach.
--- NOTE | 2023-05-26 14:40 | PC.NURSE ---
pt receiving echo at this time/in no apparent distress. respirations remain even and unlabored. call holland placed within reach.
--- NOTE | 2023-05-26 15:39 | PC.NURSE ---
report given to RN on IMC - pt still receiving echo at this time - will notify transport when pt is able to go upstairs.
[2023-05-26] MEDS: Insulin Lispro 100 UNIT/ML 3 ML VIAL SUBCUT (16:38)
[2023-05-26 16:47] LABS: Glucose, Whole Blood 234 mg/dL (60-115)
[2023-05-26 20:15] LABS: Glucose, Whole Blood 79 mg/dL (60-115)
[2023-05-27 04:00] VITALS: BP 145/84; PULSE 77; RESP 20; TEMP 36.3; O2SAT 94
[2023-05-27 07:34] VITALS: BP 150/96; PULSE 92; RESP 19; TEMP 36.8; O2SAT 94
[2023-05-27 08:24] LABS: Glucose, Whole Blood 144 mg/dL (60-115)
[2023-05-27 08:26] LABS: Anion Gap 10 (12-20); Blood Urea Nitrogen 15 mg/dL (9-16); Calcium 9.7 mg/dL (8.4-10.2); Carbon Dioxide 29 mmol/L (22-29); Chloride 104 mmol/L (96-108); Creatinine Clr Calc Pharmacy 81.8; Estimated Glomerular Filt Rate > 60; Glucose Random 221 mg/dL (60-115); Potassium 3.8 mmol/L (3.3-5.1); Sodium 139 mmol/L (135-145)
[2023-05-27 08:30] LABS: D Dimer High Sensitivity < 150 NG/ML
[2023-05-27] MEDS: metFORMIN HCl 500 MG TABLET PO (09:17)
[2023-05-27] MEDS: amLODIPine Besylate 5 MG TABLET PO (09:17)
[2023-05-27] MEDS: lisinopriL 5 MG TABLET PO (09:17)
[2023-05-27] MEDS: 0.9 % Sodium Chloride Flush 3 ML SYRINGE IVFLUSH (09:25)
--- NOTE | 2023-05-27 10:10 | MHC.CM.PN ---
Per ROUNDS discussion, Patient will be medically cleared for dc to home today, self care.
--- NOTE | 2023-05-27 11:19 | PM.PNCARD ---
Subjective Subjective Date of Service: 05/27/23 Interval history: Seen examined at bedside. Clinically stable. Physical Exam Vital Signs: Last Vital Signs Temp 98.2 F 05/27/23 07:34 Pulse 92 05/27/23 07:34 Resp 19 05/27/23 07:34 BP 150/96 H 05/27/23 07:34 Pulse Ox 94 05/27/23 07:34 O2 Del Method Room Air 05/27/23 07:34 BMI result Body Mass Index 23.3 GENERAL APPEARANCE: in no acute distress, pleasant. Bandage on forehead. NECK: no carotid bruit, no jugular venous distention. SKIN: no suspicious lesions, warm and dry. HEART: Systolic murmur aortic area, regular rate and rhythm. LUNGS: clear to auscultation bilaterally. ABDOMEN: soft, nontender. EXTREMITIES: no edema. PERIPHERAL PULSES: equal. NEUROLOGIC: No gross deficits, AAO X 3 Objective Labs and Meds 05/26/23 05:14 05/27/23 07:01 Lab results: Laboratory Results - last 24 hr 05/26/23 05/26/23 05/26/23 11:48 16:32 20:12 Hold Purple Top D-Dimer High Sensitivty Sodium Potassium Chloride Carbon Dioxide Anion Gap BUN Creatinine Estim Creat Clear Calc Estimated GFR POC Glucose 130 H 234 H 79 Random Glucose Calcium 05/27/23 05/27/23 07:01 07:52 Hold Purple Top SEE NOTE D-Dimer High Sensitivty < 150 Sodium 139 Potassium 3.8 Chloride 104 Carbon Dioxide 29 Anion Gap 10 L BUN 15 Creatinine 0.84 Estim Creat Clear Calc 81.8 Estimated GFR > 60 POC Glucose 144 H Random Glucose 221 H Calcium 9.7 D Progress Note: A&P Assessment and plan (1) Syncope: Status: Acute Plan 72-year-old gentleman presenting with syncope. Etiology is unclear. He has [id number]-[id number] aortic valve stenosis based on echocardiography. No pericardial effusion or any significant cardiomyopathy noted. Orthostatics are negative. D-dimer is also negative. If you feel he needs seizure workup then he needs to be referred to Neurology. We will arrange a cardiac event monitor for him as outpatient. Can be discharged back home. Thank you for allowing me to participate in the care of your patient. Please feel free to contact me if you have any questions. Time Spent With Patient Time: Total time managing care of this patient today ____ minutes. Progress Note: Quality Stroke Does the patient have a stroke diagnosis?: No Procedures Date of Service Date of Service: 05/27/23
[2023-05-27 11:32] LABS: Glucose, Whole Blood 120 mg/dL (60-115)
--- NOTE | 2023-05-27 11:37 | P.DS_ITS ---
DS: Providers Provider Date of Service: 05/27/23 Date of admission: 05/26/23 00:06 Primary care physician: SETH Arellano Consults: 05/26/23 00:13 Consult to Cardiology Routine Consulting Provider: [facility] Reason for consultation: syncope Has provider been notified: Yes 05/27/23 09:29 Consult to Wound Care Routine Reason for consultation: laceration DS: Diagnosis Discharge Diagnosis (1) Syncope: Status: Acute DS: Summary Hospital Course Hospital Course: This is a 72-year-old male with pertinent history of essential hypertension, twz-juvyqqp-fmunlrsah diabetes mellitus, mood disorder, mixed hyperlipidemia, moderate aortic stenosis, coronary artery disease who presents to the emergency department for evaluation of syncope. Patient states he was cutting squash in his kitchen and the next thing he knew he was on the kitchen floor. Briefly lost consciousness and found himself on the kitchen floor with bleeding from his scalp. No dizziness/lightheadedness, chest pain, palpitations prior to the syncopal episode. No jerking movement of extremities, tongue bite, urinary or bowel incontinence. No similar episodes in the past. Patient denies fever, c hills, shortness of breath, nausea, vomiting, abdominal pain, changes in urinary or bowel habits. In the emergency department, patient was found to have laceration of the scalp which was stapled by ER provider 72-year-old man treated for acute syncope. Patient had no further episodes of syncope during hospitalization. He was seen evaluated by Cardiology. He was noted to have if you 2nd pauses on telemetry but nothing longer in no severe arrhythmia. Head CT was negative for any acute abnormality, echocardiogram did not show any critical aortic stenosis or severe cardiomyopathy that could cause syncope. Patient's vital signs had remained stable in orthostatic blood pressures were negative. Blood sugars within normal limits. Plan is for patient to follow up with Cardiology outpatient to have a Holter monitor placed. Patient agrees with the plan and is agreeable to discharge home. Hypertension. Continue amlodipine and lisinopril Diabetes mellitus type 2. Continue metformin Coronary artery disease. Continue aspirin and statin Mental health continue paroxetine Time Attestation Discharge coordination time: Greater than 30 minutes Quality: Safe Use of Opioids Does Pt have an Active Cancer Diagnosis on the Problem List?: No Quality: Stroke Does the patient have a stroke diagnosis?: No Physical Exam Vital Signs: Vital Signs: Last Vital Signs Temp 98.2 F 05/27/23 07:34 Pulse 92 05/27/23 07:34 Resp 19 05/27/23 07:34 BP 150/96 H 05/27/23 07:34 Pulse Ox 94 05/27/23 07:34 O2 Del Method Room Air 05/27/23 07:34 BMI result Body Mass Index 23.3 Appearing in no acute distress head is normocephalic atraumatic eyes pupils are PERRLA sclera is anicteric mouth throat mucous membranes are intact and moist neck is supple no lymphadenopathy, no JVD noted lung sounds are clear to auscultation heart regular rate rhythm, clear S1, S2 positive bowel sounds, abdomen is soft, nontender neuro patient is alert x3, no focal deficits DS: Data Data Completed and Pending Labs on day of discharge: Laboratory Results - last 24 hr 05/26/23 05/26/23 05/26/23 11:48 16:32 20:12 Hold Purple Top D-Dimer High Sensitivty Sodium Potassium Chloride Carbon Dioxide Anion Gap BUN Creatinine Estim Creat Clear Calc Estimated GFR POC Glucose 130 H 234 H 79 Random Glucose Calcium 05/27/23 05/27/23 05/27/23 07:01 07:52 11:28 Hold Purple Top SEE NOTE D-Dimer High Sensitivty < 150 Sodium 139 Potassium 3.8 Chloride 104 Carbon Dioxide 29 Anion Gap 10 L BUN 15 Creatinine 0.84 Estim Creat Clear Calc 81.8 Estimated GFR > 60 POC Glucose 144 H 120 H Random Glucose 221 H Calcium 9.7 D Discharge Plan Discharge Anticipated Discharge Date/Time: 05/27/23 11:08 Patient Disposition: Home, Self-Care Discharge Diagnosis: syncope Referrals: Wally Roa FNP- [Primary Care Provider] - 1 Week Christophe Mayorga MD [Physician] - 1 Week ( follow-up for Holter monitor placement) Discharge Medications: Continued (DME) FreeStyle Krish 2 [place] Misc See Rx Instructions .ROUTE Rx Instructions: As directed (DME) FreeStyle Krish 2 Sensor Kit See Rx Instructions .ROUTE Qty: 1 0RF Rx Instructions: As directed metformin 500 mg tablet 500 mg PO DAILY Qty: 90 1RF amlodipine 5 mg tablet 5 mg PO DAILY Qty: 90 1RF lisinopril 5 mg tablet 5 mg PO DAILY 90 Days Qty: 90 1RF atorvastatin 80 mg tablet 80 mg PO DAILY aspirin 81 mg Tablet,Delayed Release (Dr/Ec) 81 mg PO DAILY paroxetine HCl 30 mg tablet 30 mg PO DAILY Discharge Orders: Discharge Order (Routine); Ordered 05/27/23 Ordered By: Vidhya Trejo Diet: Advance to usual diet Activity on Discharge: As tolerated Stand Alone Forms: Patient Portal Discharge page Care Plan Goals: complete resolution of symptoms Health Concerns: syncope Plan of Treatment: Follow-up with cardiology for Holter monitor placement Take all medications as prescribed Assessment: see discharge summary
--- NOTE | 2023-05-27 11:38 | HO.WOUND ---
Wound Consult: Initial 72yr old male admitted to [facility] on?05/26/23 00:06 - S/P a fall at home resulting in occiput laceration, See progress notes and H&P for detailed history. Occiput Etiology: Laceration Measurements: Left 4cm x 0.2cm x 0.1cm right 2.5cm x 0.2cm Wound Bed: Areas of dried scab in place - 2 sander inplace - and red pink moist tissue at base of open laceration Per pt statement he refused remained for sander to be placed due to pain Drainage / Odor: dried sanguineous drainage noted on dressing Edges: ? linear and where sander in place well approximated Krystal wound: ? Intact - no swelling noted mild tenderness reported No Induration, No Fluctuance Goals of Treatment: ? Moist wound healing and protect from friction due to location Recommendations: 1. Occiput - Cleanse with NS pat dry. Apply double layer xeroform, cover with foam dressing. Change daily. May shower with gentle washing and gentle pat dry. Re-consult wound care Nurse for wound deterioration or wound changes.
== END 2023-05-27 13:16 | disposition home or self-care (01) ==
LOC: HO.ED 23:45 → HO.EDOVER 05-26 00:16 → HO.IMC 05-26 15:10
PROVIDERS: Physician Assistant; Admitting Provider Student in an Organized Health Care Education/Training Program; Emergency Provider Student in an Organized Health Care Education/Training Program; PCP Nurse Practitioner Family; Visit Provider Nurse Practitioner Acute Care
DX: R55 Syncope and collapse (principal); S01.01XA Laceration without foreign body of scalp, initial encounter; W18.30XA Fall on same level, unspecified, initial encounter; Y93.9 Activity, unspecified; Y92.9 Unspecified place or not applicable; Y99.9 Unspecified external cause status; I25.10 Atherosclerotic heart disease of native coronary artery without angina pectoris; I10 Essential (primary) hypertension; I35.0 Nonrheumatic aortic (valve) stenosis; Z23 Encounter for immunization; E11.9 Type 2 diabetes mellitus without complications; E78.5 Hyperlipidemia, unspecified; Z79.899 Other long term (current) drug therapy
CPT/HCPCS: 12002; 36415; 70450; 72125; 80048; 80053; 81003; 82947; 84484; 85025; 85027; 85379; 85610; 85730; 90471; 90715; 93005; 93306; 96372; 96374; 99222; 99285; J1650

== ENCOUNTER → 2023-05-26 00:06 | Outpatient (BNV) | payer MEDICARE, MEDICAID, SELFPAY | PROVIDERS: Admitting Provider Student in an Organized Health Care Education/Training Program; Emergency Provider Student in an Organized Health Care Education/Training Program; PCP Nurse Practitioner Family; Visit Provider Student in an Organized Health Care Education/Training Program | DX: R55 Syncope and collapse (principal) | CPT/HCPCS: 99222; 99239; 99499 ==

== ENCOUNTER → 2023-05-26 00:06 | Outpatient (BNV) | payer MEDICARE, MEDICAID, SELFPAY | PROVIDERS: Admitting Provider Student in an Organized Health Care Education/Training Program; Emergency Provider Student in an Organized Health Care Education/Training Program; PCP Nurse Practitioner Family; Visit Provider Internal Medicine Cardiovascular Disease | DX: I10 Essential (primary) hypertension (principal); I35.0 Nonrheumatic aortic (valve) stenosis; R55 Syncope and collapse | CPT/HCPCS: 93306; 99222; 99232 ==

== ENCOUNTER → 2023-06-02 10:07 | Outpatient (REF) | payer MEDICARE, MEDICAID, SELFPAY ==
--- NOTE | 2023-06-02 10:13 | HM_ITS ---
* Procedure planned 30 days. Wear time 22 days. * Underlying rhythm is sinus with an average rate of 72/Min. * Rare supraventricular/ventricular ectopy. * No sustained arrhythmias. * No significant pauses or heart blocks. * No symptoms mentioned in diary. MTDD
== END ==
LOC: HO.CARD 10:07
PROVIDERS: Visit Provider Internal Medicine Cardiovascular Disease
DX: R55 Syncope and collapse (principal)
CPT/HCPCS: 93270

== ENCOUNTER → 2023-06-02 10:13 | Outpatient (BNV) | payer MEDICARE, MEDICAID, SELFPAY | PROVIDERS: Visit Provider Internal Medicine | DX: R00.1 Bradycardia, unspecified (principal) | CPT/HCPCS: 93272 ==

== ENCOUNTER 2023-07-09 09:24 | Outpatient (AMB) | payer MEDICARE, MEDICAID, SELFPAY ==
--- NOTE | 2023-07-09 09:50 | MHC.PC.OV ---
Vital Signs 07/09/23 09:51 Height 5 ft 7 in Weight 153 lb 4 oz BMI 24.0 BP 122/78 Blood Pressure Location Lt brachial Position Sitting Pulse 74 Pulse Source Pulse Oximeter Pulse Oximetry (%) 98 Oxygen Delivery Method Room Air Intake Visit Reasons: 3 month fu Intake Note: Patient here for diabetes follow up Allergies No Known Allergies Allergy (Verified 07/09/23 09:52) Tobacco use date assessed: 07/09/23 Fall risk assessment: No Falls in past year Last assessed Fall Risk: 07/09/23 Dental Screening Dental Screen Date: 07/09/23 Did you have a dental visit in the last 12 months?: No Did you have a dental problem in the last 6 months where you did not have access to dental care?: No Was dental information given to patient?: No HPI 3 month fu HPI Details Patient here for follow-up for diabetes. Microalbumin is up today. He is currently on an Terry and a statin. Pt has a independent sales representative. Pt reports having an eye exam in the last year (missing report). Pt is seeing cardio for aortic stenosis. Pt was on the [employer] justice, but reports not liking it anymore. Recommended he goes back to using the basic glucometer. Denies any neuropathy, polydipsia, polyuria. Will add Jardiance to his med profile today. [facility] Medical History Onychomycosis Cervical radiculopathy Elevated lipoprotein A level Vitamin B12 deficiency RLS (restless legs syndrome) PVD (peripheral vascular disease) Neuritis PAC (premature atrial contraction) Hyperlipidemia Diabetes mellitus HTN (hypertension) CAD (coronary artery disease) Aortic stenosis Surgical History History of knee surgery Family History Father Bone cancer Mother Unknown family medical history Social History Housing: Apartment Alcohol intake: never Patient Tobacco Use Status: Former Tobacco user Quit Date: 1976 e-Cigarette/Vaping Use: Never Used Second Hand Smoke Exposure: No service: No Current occupational status: retired Cognitive needs: No Hearing needs: No Vision needs: No Questionnaire PHQ-9 Over the last 2 weeks, how often have you been bothered by any of the following problems? 1. Little interest or pleasure in doing things: not at all 2. Feeling down, depressed, or hopeless: not at all 3. Trouble falling or staying asleep, or sleeping too much: not at all 4. Feeling tired or having little energy: not at all 5. Poor appetite or overeating: not at all 6. Feeling bad about yourself - or that you are a failure or have let yourself or your family down: not at all 7. Trouble concentrating on things, such as reading the newspaper or watching television: not at all 8. Moving or speaking so slowly that other people could have noticed. Or the opposite - being so fidgety or restless that you have been moving around a lot more than usual: not at all 9. Thoughts that you would be better off or of hurting yourself in some way: not at all Total score: 0 Depression Screening Interpretation: Negative Depression Screening Done: Yes 26853 - PHQ-9 Billing: Yes Source: Developed by Drs. Uriah Laughlin, Serena Jacome, John Garcia and colleagues, with an educational adrienne from [employer]. Thrive Questionnaire Date Thrive assessed: 07/09/23 I am a: Patient What is your living situation today?: I have a steady place to live Within the past 12 months, did the food you bought not last and you didn't have the money to get more?: Never true Within the past 12 months, did you worry whether your food would run out before you got money to buy more?: Never true Do you have trouble paying for medicines?: No Do you have trouble getting transportation to medical appointments?: No Do you have trouble paying your heating and electricity bill?: No Do you have trouble taking care of your child, family member or friend?: No Do you have trouble with day-to-day activities such as bathing, preparing meals, shopping, managing finances, etc.?: No Are you currently unemployed and looking for a job?: No Are you interested in more education?: No AUDIT C Alcohol Use Questionnaire (AUDIT-C) 1. How often do you have a drink containing alcohol?: Never 3. How often do you have six or more drinks on one occasion?: Never Total Score: 0 Score Reviewed/Action Taken: No CHRISTIE-7 AMB Questionnaire CHRISTIE-7 Date CHRISTIE - 7 assessed: 07/09/23 Feeling nervous, anxious, or on edge: 0 = Not at all Not being able to stop or control worryin = Not at all Worrying too much about different things: 0 = Not at all Trouble relaxin = Not at all Being so restless that it is hard to sit still: 0 = Not at all Becoming easily annoyed or irritable: 0 = Not at all Feeling afraid as if something awful might happen: 0 = Not at all Total CHRISTIE-7 score (0-4 normal; 5-9 mild; 10-14 moderate; 15-21 severe): 0 Source: Developed by Drs. Uriah Laughlin, Serena Jacome, John Garcia and colleagues, with an educational adrienne from [employer]. CHRISTIE-7 Assessment Billing CHRISTIE-7 Assessment Tool: CHRISTIE-7 Assessment 91608 Physical exam (Primary Care) Vital Signs: Last Vital Signs Pulse 74 07/09/23 09:51 BP 122/78 07/09/23 09:51 Pulse Ox 98 07/09/23 09:51 Oxygen Delivery Method Room Air 07/09/23 09:51 BMI result Body Mass Index 24.0 Tobacco/Smoking Status: Tobacco use Status Tobacco use date assessed 07/09/23 07/09/23 09:54 Patient Tobacco Use Status Former Tobacco user 07/09/23 09:54 e-Cigarette/Vaping Use Never Used 07/09/23 09:54 PHQ-9: PHQ-9 Score PHQ-9: Total score 0 07/09/23 10:23 Depression Screening Interpretation: Negative Thrive Assessment: Date of Thrive Assessment Date Thrive assessed 07/09/23 07/09/23 10:01 Const General: cooperative, healthy appearing and comfortable Resp Other: faint wheezes (scattered) Cardio Rate: regular rate Rhythm: regular rhythm Heart sounds: S1 normal heart sound present, S2 normal heart sound present and Murmur heart sound present systolic Extrem Other: elongated toenails bilat, + sensation with use of monofilament Psych Appearance: grossly normal Mental Status: mental status grossly normal Speech and movement: Normal speech and movement present Attitude: cooperative Thought process: Normal thought process present Thought content: Normal thought content present Insight: Good insight present (Psych) Judgement: Good judgement present (Psych) Results AMB Hemoglobin A1c AMB Hemoglobin A1c 7.2 % Last Edit by MANJEET Dumont on 07/09/23 10:24 Results Reviewed Results Reviewed: Laboratory Last Values Hgb A1c (Clinic) 7.2 % (4.0-6.0) H 07/09/23 10:23 Assessment and Plan Assessment & Plan (1) Diabetes mellitus: Code(s): E11.9 - Type 2 diabetes mellitus without complications Orders: Orders AMB Hemoglobin A1c Today E11.9 - Type 2 diabetes mellitus without complications Medications: New empagliflozin (Jardiance) 10 mg PO DAILY 90 tabs 0RF 90 days Coding Level of Care Code Est Pt Level 3 (15262) Diagnoses Diabetes mellitus E11.9 Additional Codes CHRISTIE-7 Assessment Billing - CHRISTIE-7 Assessment Tool: CHRISTIE-7 Assessment [id number] ([id number])
[2023-07-09 09:51] VITALS: BP 122/78; PULSE 74; O2SAT 98; BMI 24.0
== END 2023-07-09 11:14 | disposition home or self-care (01) ==
PROVIDERS: PCP Nurse Practitioner Family; Visit Provider Nurse Practitioner Family
DX: E11.9 Type 2 diabetes mellitus without complications (principal)
CPT/HCPCS: 83036; 99213

== ENCOUNTER 2023-08-11 09:46 | Outpatient (AMB) | payer MEDICARE, MEDICAID, SELFPAY ==
--- NOTE | 2023-08-11 09:55 | MHC.OFFVIS ---
Intake Vital Signs 08/11/23 09:56 Height 5 ft 7 in Weight 154 lb 5.177 oz BMI 24.2 BP 140/76 H Blood Pressure Location Lt brachial Position Sitting Pulse 71 Intake Visit Reasons: 1Y follow up Intake Note: 1 year follow-up with ekg was in [facility] a few months ago with fall feeling ok Aerospace Quality Engineer Required: No Allergies No Known Allergies Allergy (Verified 07/09/23 09:52) Medication List - Last Reconciled 08/11/23 by Christophe Mayorga MD amlodipine 5 mg PO DAILY aspirin 81 mg PO DAILY atorvastatin 80 mg PO DAILY empagliflozin (Jardiance) 10 mg PO DAILY 90 days flash glucose scanning reader (FreeStyle Krish 2 [place]) As directed flash glucose sensor (FreeStyle Krish 2 Sensor kit) As directed lisinopril 5 mg PO DAILY 90 days metformin 500 mg PO DAILY paroxetine HCl 30 mg PO QAM HPI HPI Comments History of Present Illness Details Uriah comes for a follow-up, annual follow-up. In May he had a syncopal episode of unclear etiology. He was admitted and no obvious cause was found with admission. He subsequently had a cardiac event monitor which was benign. Since then he has not had any syncopal episode. He did not have any recurrent events since then. Echocardiogram which had shown [id number] aortic stenosis at that time. He denies any symptoms exertional chest pain. No heart failure symptoms. Takes all his medications regularly. He denies any prolonged palpitation irregular heartbeat. No heart failure symptoms. [facility] Medical History (Updated 08/11/23 @ 10:39 by Christophe Mayorga MD) Aortic stenosis Onychomycosis Cervical radiculopathy Elevated lipoprotein A level Vitamin B12 deficiency RLS (restless legs syndrome) PVD (peripheral vascular disease) Neuritis PAC (premature atrial contraction) Hyperlipidemia Diabetes mellitus HTN (hypertension) CAD (coronary artery disease) Surgical History History of knee surgery Family History Father Bone cancer Mother Unknown family medical history Social History Housing: Apartment Alcohol intake: never Patient Tobacco Use Status: Former Tobacco user Quit Date: 1976 e-Cigarette/Vaping Use: Never Used Second Hand Smoke Exposure: No service: No Current occupational status: retired Cognitive needs: No Hearing needs: No Vision needs: No Review of Systems Const Denies chills, Denies fatigue, Denies fever(s), Denies frequent falls, Denies weakness, Denies weight gain and Denies weight loss ENT Denies dizziness Card Denies chest pain, Denies leg edema, Denies lightheadedness, Denies palpitations, Denies dyspnea, Denies dyspnea on exertion, Denies orthopnea and Denies other (loss of consciousness) Resp Denies cough, Denies dyspnea and Denies dyspnea on exertion GI Denies hematochezia and Denies change in stool character Musc Denies abnormal gait, Denies muscle weakness, Denies numbness, Denies radiating pain into limb and Denies tingling Neuro Denies abnormal gait, Denies dizziness, Denies frequent falls, Denies numbness, Denies tingling and Denies weakness Endo Denies fatigue and Denies palpitations Physical Exam Vital Signs: Last Vital Signs Pulse 71 08/11/23 09:56 BP 140/76 H 08/11/23 09:56 BMI result Body Mass Index 24.2 Const General: cooperative, comfortable, no acute distress, alert and awake Nutritional Appearance: average body habitus Orientation/consciousness: patient oriented x3 Limitations: no limitations Neck Neck: Yes trachea midline, Yes supple and Yes no JVD Resp Effort & Inspection: normal respiratory effort Auscultation: wheezes and diminished lung sounds Cardio Jugular venous distension: no JVD Palpation: normal PMI Rate: regular rate Rhythm: regular rhythm Heart sounds: S1 normal heart sound present, S2 normal heart sound present, no click, no gallops and Murmur heart sound present systolic early and mid GI Auscultation: normal bowel sounds Skin General skin exam: no rashes or lesions noted Neuro General: patient oriented x3 and no focal motor deficits Extrem General: Yes no clubbing, cyanosis or edema Office Procedures EKG Details: EKG shows normal sinus rhythm with normal EKG 85733-[id number], Complete Assessment & Plan Assessment & Plan (1) Syncope: Code(s): R55 - Syncope and collapse Plan: Syncope in this elderly gentleman with aortic stenosis. Unknown etiology. Could represent orthostatic syncope although this was without any clear prodrome. Patient had injury related to it. Event monitor was uneventful. I would suggest him to undergo implantable loop recorder placement for further assessment for any significant cardiac arrhythmias especially AV conduction disorder given his aortic stenosis. This was discussed with him. Risks, benefits, alternatives were discussed. He is understanding and agreeable. Also advised to maintain adequate hydration. Orthostatic precautions were discussed although he clearly has no prodrome. (2) Aortic stenosis: Code(s): I35.0 - Nonrheumatic aortic (valve) stenosis Plan: Aortic stenosis which is [id number]. No significant progression or cause for syncope continue low-dose therapy continue aggressive risk factor modification. Continue statin therapy with target goal LDL less than 70 mg/dL. Blood pressure is currently well optimized. Continue aggressive management of diabetes. Goal hemoglobin A1c less than 7%. Echocardiogram next year. Will follow up in the clinic in 3 weeks time after implantable loop recorder placement for wound check Coding Level of Care Code Est Pt Level 4 (71393) Diagnoses Syncope R55 Aortic stenosis I35.0 CPT Codes EKG - CPT: 50469-[id number], Complete ([id number])
[2023-08-11 09:56] VITALS: BP 140/76; PULSE 71; BMI 24.2
== END 2023-08-11 12:57 | disposition home or self-care (01) ==
PROVIDERS: Visit Provider Internal Medicine Cardiovascular Disease
DX: R55 Syncope and collapse (principal); I35.0 Nonrheumatic aortic (valve) stenosis
CPT/HCPCS: 93010; 99214

== ENCOUNTER → 2023-08-11 09:46 | Outpatient (BNVA) | payer MEDICARE, MEDICAID, SELFPAY | PROVIDERS: Visit Provider Internal Medicine Cardiovascular Disease | DX: R55 Syncope and collapse (principal); I35.0 Nonrheumatic aortic (valve) stenosis; Z79.899 Other long term (current) drug therapy | CPT/HCPCS: 93005; 99212 ==

== ENCOUNTER 2023-08-20 11:46 | Outpatient (REF) | payer MEDICARE, MEDICAID, SELFPAY ==
[2023-08-20 13:09] VITALS: BMI 22.7
--- NOTE | 2023-08-20 13:39 | P.BOP_ITS ---
Brief Operative Note Date of Service: 08/20/23 Pre-op diagnosis: Syncope Post-op diagnosis: same Procedure: Placement of implantable loop recorder Implants: After obtaining full informed consent patient was brought to the minor surgery suite. Patient was laid supine on the operating table. Patient's precordial area was then prepped and draped in a sterile fashion. Patient was then given 2% lidocaine with epinephrine intradermally and subcutaneously in the 4th intercostal space. A [employer] implantable loop recorder with serial number [id number] was then implanted into the subcutaneous placed using modified Seldinger technique. Measured R-waves up to 0.52 mV were noted. The incision was then closed with Steri-Strips. Pressure dressing was then applied. Surgeon: Christophe Mayorga MD Anesthesia: local Was an Agronomy Research Manager used for this Procedure?: No Estimated blood loss (mL): 2 Pathology: none sent Condition: stable Disposition: same day
[2023-08-20 13:45] VITALS: BP 136/75; PULSE 75; RESP 16; O2SAT 95
== END 2023-08-20 11:47 | disposition home or self-care (01) ==
LOC: HO.MS 11:46
PROVIDERS: PCP Nurse Practitioner Family; Visit Provider Internal Medicine Cardiovascular Disease
PROC: (CPT 33285; principal; 2023-08-20 13:00)
DX: R55 Syncope and collapse (principal)
CPT/HCPCS: 33285; C1764

== ENCOUNTER → 2023-08-20 11:46 | Outpatient (BNV) | payer MEDICARE, MEDICAID, SELFPAY | PROVIDERS: PCP Nurse Practitioner Family; Visit Provider Internal Medicine Cardiovascular Disease | DX: R55 Syncope and collapse (principal) | CPT/HCPCS: 33285 ==

== ENCOUNTER → 2023-08-28 09:23 | Outpatient (BNVA) | payer MEDICARE, MEDICAID, SELFPAY | PROVIDERS: PCP Nurse Practitioner Family; Visit Provider Nurse Practitioner Family | DX: Z51.89 Encounter for other specified aftercare (principal); R55 Syncope and collapse; I35.0 Nonrheumatic aortic (valve) stenosis; I10 Essential (primary) hypertension; Z95.818 Presence of other cardiac implants and grafts | CPT/HCPCS: 99212 ==

== ENCOUNTER 2023-08-28 09:24 | Outpatient (AMB) | payer MEDICARE, MEDICAID, SELFPAY ==
[2023-08-28 10:18] VITALS: BP 134/82; PULSE 78; BMI 22.6
--- NOTE | 2023-08-28 10:18 | A.OFFVIS_ITS ---
Intake Vital Signs 08/28/23 10:18 Height 5 ft 9 in Weight 153 lb 0.013 oz BMI 22.6 BP 134/82 Blood Pressure Location Lt brachial Position Sitting Pulse 78 Pulse Source Pulse Oximeter Intake Visit Reasons: Wound check post ILR Certified Ophthalmic Assistant Required: No Allergies No Known Allergies Allergy (Verified 08/28/23 10:20) Medication List - Last Reconciled 08/28/23 by Kerry Dumont, KIT-C amlodipine 5 mg PO DAILY aspirin 81 mg PO DAILY atorvastatin 80 mg PO DAILY empagliflozin (Jardiance) 10 mg PO DAILY 90 days flash glucose scanning reader ([employer] Krish 2 [place]ar[place]) As directed flash glucose sensor (FreeStyle Krish 2 Sensor kit) As directed lisinopril 5 mg PO DAILY 90 days metformin 500 mg PO DAILY paroxetine HCl 30 mg PO QAM HPI Wound check post ILR HPI Details Uriah is a 73-year-old male with past medical history of hypertension, hyperlipidemia, diabetes, peripheral vascular disease, aortic stenosis, syncope who recently underwent implanted loop recorder placement and now presents for follow-up. Today he reports that he has not had any recurrent episodes syncope. No lightheadedness, presyncope, falls. His ILR site is feeling good. He has not had any fevers at home. He denies chest discomfort at rest or with activity. No shortness of breath, palpitations, PND, orthopnea or edema. He reports good activity tolerance. He is taking his meds as directed. [facility] Medical History (Updated 08/28/23 @ 11:09 by Kerry Dumont NP-C) HTN (hypertension) Aortic stenosis Onychomycosis Cervical radiculopathy Elevated lipoprotein A level Vitamin B12 deficiency RLS (restless legs syndrome) PVD (peripheral vascular disease) Neuritis PAC (premature atrial contraction) Hyperlipidemia Diabetes mellitus CAD (coronary artery disease) Surgical History History of knee surgery Family History Father Bone cancer Mother Unknown family medical history Social History Housing: Apartment Alcohol intake: never Patient Tobacco Use Status: Former Tobacco user Quit Date: 1976 e-Cigarette/Vaping Use: Never Used Second Hand Smoke Exposure: No service: No Current occupational status: retired Cognitive needs: No Hearing needs: No Vision needs: No Review of Systems Const All systems reviewed & are unremarkable except as noted in HPI and below ENT Denies dizziness Card Denies chest pain, Denies chest pain at rest, Denies chest pain with activity, Denies rapid heart rate, Denies pedal edema, Denies edema, Denies leg edema, Denies lightheadedness, Denies palpitations, Denies dyspnea, Denies dyspnea on exertion and Denies orthopnea Resp Denies cough, Denies dyspnea and Denies dyspnea on exertion GI Denies hematochezia and Denies change in stool character Musc Denies abnormal gait, Denies limited range of motion, Denies muscle cramps, Denies muscle weakness, Denies numbness, Denies radiating pain into limb, Denies stiffness and Denies tingling Neuro Denies abnormal gait, Denies dizziness, Denies numbness and Denies tingling Endo Denies palpitations Physical Exam Vital Signs: Last Vital Signs Pulse 78 08/28/23 10:18 BP 134/82 08/28/23 10:18 BMI result Body Mass Index 22.6 Const General: cooperative, healthy appearing, comfortable and no acute distress Orientation/consciousness: patient oriented x3 Neck Neck: Yes normal visual inspection and Yes no JVD Resp Effort & Inspection: normal respiratory effort Auscultation: clear to auscultation bilaterally, no crackles, no rales, no rhonchi and no wheezes Cardio Jugular venous distension: no JVD Rate: regular rate Rhythm: regular rhythm Heart sounds: S1 normal heart sound present, S2 normal heart sound present, no m urmurs and no rubs Neuro General: patient oriented x3 Extrem General: Yes normal to inspection and No no pedal edema Psych Appearance: grossly normal Mental Status: mental status grossly normal Speech and movement: Normal speech and movement present Assessment & Plan Assessment & Plan (1) Visit for wound check: Code(s): Z51.89 - Encounter for other specified aftercare Plan: Implanted loop recorder placed 08/20/[address] Mayorga. [employer] device in [facility] with remote monitoring in use. No arrhythmias identified as of yet. Dressing removed from the ILR site revealing a 1 cm long fully approximated incision to the left chest region. No swelling or drainage noted. Resolving ecchymosis is present. Band-aid applied over site. Wound care instructions given. Instructed to call if he has any issues or concerns. Reviewed keeping remote monitor at bedside. Informed him that we would call him if he has concerning alerts. Cardiology follow-up in 6 months, sooner if needed (2) Syncope: Code(s): R55 - Syncope and collapse Plan: Syncopal event with injury in the past. Cardiac event monitor done 06/02/2023 for 30 days showing sinus rhythm with average heart rate 72, rare SVE and VE. Echocardiogram done 05/26/2023 showed normal EF 60-65%. Implanted loop recorder placed as above to further evaluate for possible arrhythmia. (3) Aortic stenosis: Code(s): I35.0 - Nonrheumatic aortic (valve) stenosis Plan: Echo done 05/26/2023 shows [id number] aortic valve stenosis. This was unchanged from echo done 05/15/2022. Repeat echocardiogram already ordered for 07/2024 (4) HTN (hypertension): Code(s): I10 - Essential (primary) hypertension Plan: Well controlled at this time. No medication changes made Plan Time spent on chart review, documentation, interview and assessment Coding Level of Care Code Est Pt Level 3 (33229) Diagnoses Visit for wound check Z51.89 Syncope R55 Aortic stenosis I35.0 HTN (hypertension) I10 Time Spent (min) 24
== END 2023-08-28 10:56 | disposition home or self-care (01) ==
PROVIDERS: PCP Nurse Practitioner Family; Visit Provider Nurse Practitioner Family
DX: Z51.89 Encounter for other specified aftercare (principal); R55 Syncope and collapse; I35.0 Nonrheumatic aortic (valve) stenosis; I10 Essential (primary) hypertension
CPT/HCPCS: 99213

== ENCOUNTER → 2023-09-21 23:59 | Outpatient (BNV) | payer MEDICARE, MEDICAID, SELFPAY ==
--- NOTE | 2023-09-22 15:36 | A.OFFVIS_ITS ---
Intake Intake Visit Reasons: Remote ILR Check- Medtronic Allergies No Known Allergies Allergy (Verified 08/28/23 10:20) [facility] Medical History (Updated 09/22/23 @ 15:37 by Christophe Mayorga MD) HTN (hypertension) Aortic stenosis Onychomycosis Cervical radiculopathy Elevated lipoprotein A level Vitamin B12 deficiency RLS (restless legs syndrome) PVD (peripheral vascular disease) Neuritis PAC (premature atrial contraction) Hyperlipidemia Diabetes mellitus CAD (coronary artery disease) Surgical History History of knee surgery Family History Father Bone cancer Mother Unknown family medical history Social History Housing: Apartment Alcohol intake: never Patient Tobacco Use Status: Former Tobacco user Quit Date: 1976 e-Cigarette/Vaping Use: Never Used Second Hand Smoke Exposure: No service: No Current occupational status: retired Cognitive needs: No Hearing needs: No Vision needs: No Office Procedures Cardiac Device Check Cardiac Device Check Details: Remote implantable loop recorder report generated 09/21/2023. No episodes of pauses or atrial fibrillation noted. Total burden of PVCs at 1.9% [id number] Cardiac Interrogation, subcut cardiac rhythm monitor Procedure code (CPT) selection complete Assessment & Plan Assessment & Plan (1) Status post placement of implantable loop recorder: Code(s): Z95.818 - Presence of other cardiac implants and grafts Plan: See above Coding Level of Care Code Procedure Only Diagnoses Status post placement of implantable loop recorder Z95.818 CPT Codes Cardiac Device Check - Cardiac Device 16: [id number] Cardiac Interrogation, subcut cardiac rhythm monitor ([id number])
== END ==
PROVIDERS: PCP Nurse Practitioner Family; Visit Provider Internal Medicine Cardiovascular Disease
DX: Z95.818 Presence of other cardiac implants and grafts (principal)
CPT/HCPCS: 93298

== ENCOUNTER 2023-10-06 13:08 | Outpatient (AMB) | payer MEDICARE, MEDICAID, SELFPAY ==
--- NOTE | 2023-10-06 13:10 | MHC.PC.OV ---
Vital Signs 10/06/23 13:14 Weight 156 lb BP 126/78 Blood Pressure Location Rt brachial Position Sitting Pulse 70 Pulse Source Pulse Oximeter Pulse Oximetry (%) 97 Oxygen Delivery Method Room Air Intake Visit Reasons: 3 month fu Intake Note: Patient here for diabetes f/u. Allergies No Known Allergies Allergy (Verified 10/06/23 17:18) Medication List - Last Reconciled 10/06/23 by SETH Angela amlodipine 5 mg PO DAILY aspirin 81 mg PO DAILY atorvastatin 80 mg PO DAILY dapagliflozin propanediol (Farxiga) 5 mg PO DAILY flash glucose scanning reader ([employer] Krish 2 [place]) As directed flash glucose sensor (FreeStyle Krish 2 Sensor kit) As directed lisinopril 5 mg PO DAILY 90 days metformin 500 mg PO DAILY paroxetine HCl 30 mg PO QAM Tobacco use date assessed: 07/09/23 Fall risk assessment: No Falls in past year Last assessed Fall Risk: 10/06/23 Dental Screening Dental Screen Date: 07/09/23 HPI 3 month fu HPI Details Pt is a diabetic, on an STORM and a statin. A1C in office today is 7.3. Due for microalbumin next month, will order. Denies polyuria, polydipsia, and neuropathy. Pt denies any signs and symptoms of hypoglycemia and does know how to correct it. Pt has not been taking his jardiance as it is too expensive. Will start farxiga. Pt has not been checking his sugar because he does not have a meter, will send. [facility] Medical History HTN (hypertension) Aortic stenosis Onychomycosis Cervical radiculopathy Elevated lipoprotein A level Vitamin B12 deficiency RLS (restless legs syndrome) PVD (peripheral vascular disease) Neuritis PAC (premature atrial contraction) Hyperlipidemia Diabetes mellitus CAD (coronary artery disease) Surgical History History of knee surgery Family History Father Bone cancer Mother Unknown family medical history Social History Housing: Apartment Alcohol intake: never Patient Tobacco Use Status: Former Tobacco user Quit Date: 1976 e-Cigarette/Vaping Use: Never Used Second Hand Smoke Exposure: No service: No Current occupational status: retired Cognitive needs: No Hearing needs: No Vision needs: No Questionnaire Thrive Questionnaire Date Thrive assessed: 07/09/23 CHRISTIE-7 AMB Questionnaire CHRISTIE-7 Date CHRISTIE - 7 assessed: 07/09/23 Source: Developed by Drs. Uriah Laughlin, Serena Jacome, John Garcia and colleagues, with an educational adrienne from [employer] ([employer]). Review of Systems Const Reports as per HPI Physical exam (Primary Care) Vital Signs: Last Vital Signs Pulse 70 10/06/23 13:14 BP 126/78 10/06/23 13:14 Pulse Ox 97 10/06/23 13:14 Oxygen Delivery Method Room Air 10/06/23 13:14 Tobacco/Smoking Status: Tobacco use Status Tobacco use date assessed 07/09/23 10/06/23 13:12 Patient Tobacco Use Status Former Tobacco user 10/06/23 13:12 e-Cigarette/Vaping Use Never Used 10/06/23 13:12 Thrive Assessment: Date of Thrive Assessment Date Thrive assessed 07/09/23 10/06/23 13:12 Const General: cooperative Orientation/consciousness: patient oriented x3 Resp Effort & Inspection: normal respiratory effort Auscultation: clear to auscultation bilaterally and diminished lung sounds Cardio Rate: regular rate Rhythm: regular rhythm Heart sounds: S1 normal heart sound present, S2 normal heart sound present and Murmur heart sound present systolic Neuro General: patient oriented x3 Extrem Other: bilat feet: + sensation with use of monofilament, feet intact Psych Appearance: grossly normal Mental Status: mental status grossly normal Speech and movement: Normal speech and movement present Affect: normal affect Attitude: cooperative Thought process: Normal thought process present Thought content: Normal thought content present Insight: Good insight present (Psych) Judgement: Good judgement present (Psych) Results AMB Hemoglobin A1c AMB Hemoglobin A1c 7.3 % Last Edit by MANJEET Dumont on 10/06/23 13:31 Results Reviewed Results Reviewed: Laboratory Last Values Hgb A1c (Clinic) 7.3 % (4.0-6.0) H 10/06/23 13:31 Assessment and Plan Assessment & Plan (1) Diabetes mellitus: Code(s): E11.9 - Type 2 diabetes mellitus without complications Plan: Labs ordered, starting farxiga (2) Vitamin B12 deficiency: Code(s): E53.8 - Deficiency of other specified B group vitamins Plan: Labs ordered Plan The patient agreed to the use of a medical record transcriber for this encounter. Scribed for Wally Roa ADMINISTRATIVE SERVICES ASSISTANT- by Madeleine Shahid medical record transcriber, on 10/06/2023 at 13:30 EST. Orders: Orders Comprehensive Joseph. Panel Fast Today E11.9 - Type 2 diabetes mellitus without complications UA CC w/rflx Micro + Cult Today E11.9 - Type 2 diabetes mellitus without complications Microalbumin, Random (w Creat) Today E11.9 - Type 2 diabetes mellitus without complications Complete Blood Count Auto Diff Today E11.9 - Type 2 diabetes mellitus without complications TSH reflex Free T4 Today E11.9 - Type 2 diabetes mellitus without complications Lipid Panel Today E11.9 - Type 2 diabetes mellitus without complications Vitamin B12 and Folate Today E53.8 - Deficiency of other specified B group vitamins AMB Hemoglobin A1c Today Z13.9 - Encounter for screening, unspecified Medications: New dapagliflozin propanediol (Farxiga) 5 mg PO DAILY 30 tabs 4RF Discontinued empagliflozin (Jardiance) Discontinued Reason: Duplicate 10 mg PO DAILY 90 days 90 tabs 0RF Coding Level of Care Code Est Pt Level 3 (45418) Diagnoses Diabetes mellitus E11.9 Vitamin B12 deficiency E53.8
[2023-10-06 13:14] VITALS: BP 126/78; PULSE 70; O2SAT 97
== END 2023-10-06 13:42 | disposition home or self-care (01) ==
PROVIDERS: PCP Nurse Practitioner Family; Visit Provider Nurse Practitioner Family
DX: E11.9 Type 2 diabetes mellitus without complications (principal); E53.8 Deficiency of other specified B group vitamins
CPT/HCPCS: 83036; 99213

== ENCOUNTER 2023-12-02 13:50 | Outpatient (AMB) | payer MEDICARE, MEDICAID, SELFPAY ==
[2023-12-02 13:59] VITALS: BP 130/72; PULSE 72; O2SAT 94; BMI 22.1
--- NOTE | 2023-12-02 14:01 | AM.OFFVISMDC ---
Intake Vital Signs 12/02/23 13:59 Height 5 ft 9 in Weight 150 lb BMI 22.1 BP 130/72 Blood Pressure Location Rt brachial Position Sitting Pulse 72 Pulse Source Pulse Oximeter Pulse Oximetry (%) 94 Oxygen Delivery Method Room Air Intake Visit Reasons: AWV, last 11/28/22. Intake Note: pt is here for medicare wellness visit Liquid Sugar Fortifier Required: No Allergies No Known Allergies Allergy (Verified 12/02/23 14:21) Medication List - Last Reconciled 12/02/23 by SETH Angela amlodipine 5 mg PO DAILY aspirin 81 mg PO DAILY atorvastatin 80 mg PO DAILY blood sugar diagnostic (FreeStyle Lite Strips) Test blood sugar once a day blood-glucose meter (FreeStyle Lite Meter kit) As directed dapagliflozin propanediol (Farxiga) 5 mg PO DAILY flash glucose scanning reader ([employer] Krish 2 [place]) As directed flash glucose sensor (FreeStyle Krish 2 Sensor kit) As directed lancets ([employer]Style Lancets) Test blood sugar once a day lisinopril 5 mg PO DAILY 90 days metformin 500 mg PO DAILY paroxetine HCl 30 mg PO QAM Do you need a note to return to daycare/school/sports/work: No HPI AWV, last 11/28/22. HPI Details Pt is here for an AWV. Denies fever, chills, and dizziness. [place] of care not filled out. PPP will be scanned in chart and copy will be given to pt. [facility] Medical History HTN (hypertension) Aortic stenosis Onychomycosis Cervical radiculopathy Elevated lipoprotein A level Vitamin B12 deficiency RLS (restless legs syndrome) PVD (peripheral vascular disease) Neuritis PAC (premature atrial contraction) Hyperlipidemia Diabetes mellitus CAD (coronary artery disease) Surgical History History of knee surgery Family History Father Bone cancer Mother Unknown family medical history Social History Housing: Apartment Alcohol intake: never Patient Tobacco Use Status: Former Tobacco user Quit Date: 1976 e-Cigarette/Vaping Use: Never Used Second Hand Smoke Exposure: No service: No Current occupational status: retired Cognitive needs: No Hearing needs: No Vision needs: No Questionnaire Medicare Wellness Checkup [age] What gender do you identify with?: male During the past 4 weeks, how much have you been bothered by emotional problems such as feeling anxious, depressed, irritable, sad or downhearted, and blue?: not at all During the past 4 weeks, has your physical & emotional health limited your social activities with family, friends, neighbors, or groups?: not at all During the past 4 weeks, how much bodily pain have you generally had?: no pain During the past 4 weeks, was someone available to help you if you needed & wanted help?: no, not at all Can you get to places out of walking distance without help? (For eg., can you travel alone on buses, taxis or drive your car?): Yes Can you go shopping for groceries or clothes without someone's help?: Yes Can you prepare your own meals?: No Can you do your housework without help?: Yes Because of any health problems, do you need the help of another person with your personal care needs such as eating, bathing, dressing or getting around the house?: Yes Can you handle your own money without help?: Yes During the past 4 weeks, how would you rate your health in general?: excellent During the past 4 weeks how have things been going for you?: very well; could hardly better Are you having difficulties driving your car?: no Do you always fasten your seat belt when you are in a car?: yes, usually Have you fallen 2 or more times in the past year?: No Are you afraid of falling?: Yes Are you a smoker?: no During the past 4 weeks, how many drinks of wine, beer, or other alcoholic beverages did you have?: no alcohol at all Do you exercise for about 20 minutes 3 or more times a week?: no, I usually do not exercise this much Have you been given information to help with the following?: yes: Keeping track of your medications? and no: Hazards in your house that might hurt you? How often do you have trouble taking medicines the way you have been told to take them?: I seldom take medications as prescribed What is your race?: White Mini Mental State Exam (MMSE) Orientation What is the (year) (season) (date) (day) (month)?: year, season, date, day and month Where are we (state) (county) (town or city) (hospital) (floor)?: state, county, town or city, hospital/clinic and floor Registration Name of 3 unrelated objects clearly and slowly, then ask patient to repeat all 3 of them. (1st repeat determines score. Make sure they can repeat all three): object 1, object 2 and object 3 Attention & Calculation (CHOOSE ONE) Spell WORLD backwards (DLROW): 5 letters Recall Ask patient to repeat the 3 items from question #3.: object 1, object 2 and object 3 Language Show patient a wristwatch & ask what it is. Repeat for pencil.: watch and pencil Ask the patient to repeat the phrase 'No ifs, ands, or buts' after you.: correct Ask the patient to 'take a piece of paper with their right hand' 'fold paper in half' 'place paper on floor': take paper in right hand, fold paper in half and place paper on floor Print the sentence 'CLOSE YOUR EYES' on a piece. If patient actually closes eyes then score.: followed written direction Give patient a blank piece of paper & ask to write a sentence. Score if it contains a noun & verb.: sentence contains subject and verb Ask patient to copy figure of intersecting pentagons exactly. Score if all 10 angles & 2 intersects are included.: all 10 angles present & 2 are intersected Score Score: 30 Activity of Daily Living Bathing - sponge bath, tub bath or shower: receives no assistance (gets in/out by self, if usual bathing means Dressing - getting clothes from closets & drawers, including inner/outer garments & fasteners.: gets clothes & gets completely dressed without help Toileting - going to the 'toilet room' for urine/bowel elimination & cleaning self/arranging clothes: goes to toilet room, cleans self, arranges clothes without help Transfer: moves in & out of bed and chair without help (may use support object) Continence: controls urination/bowel movements completely by self Feeding: feeds self without help Total Score: 0 Information obtained from: patient Using telephone: independent Traveling: independent Shopping: independent Preparing meals: independent Housework: independent Taking medicine: independent Managing money: independent PHQ-9 Over the last 2 weeks, how often have you been bothered by any of the following problems? 1. Little interest or pleasure in doing things: not at all 2. Feeling down, depressed, or hopeless: not at all 3. Trouble falling or staying asleep, or sleeping too much: not at all 4. Feeling tired or having little energy: not at all 5. Poor appetite or overeating: not at all 6. Feeling bad about yourself - or that you are a failure or have let yourself or your family down: not at all 7. Trouble concentrating on things, such as reading the newspaper or watching television: not at all 8. Moving or speaking so slowly that other people could have noticed. Or the opposite - being so fidgety or restless that you have been moving around a lot more than usual: not at all 9. Thoughts that you would be better off or of hurting yourself in some way: not at all Total score: 0 Depression Screening Interpretation: Negative Depression Screening Done: Yes 30344 - PHQ-9 Billing: Yes Source: Developed by Drs. Uriah Laughlin, Serena Jacome, John Garcia and colleagues, with an educational adrienne from [employer]. Review of Systems Const Reports as per HPI Physical Exam Vital Signs: Last Vital Signs Pulse 72 12/02/23 13:59 BP 130/72 12/02/23 13:59 Pulse Ox 94 12/02/23 13:59 Oxygen Delivery Method Room Air 12/02/23 13:59 BMI result Body Mass Index 22.1 Const General: cooperative Orientation/consciousness: patient oriented x3 Neuro Other: - romberg, can tandem walk, can walk and turn, can rise from sitting to standing, passed whisper test General: patient oriented x3 Psych Appearance: grossly normal Mental Status: mental status grossly normal Speech and movement: Normal speech and movement present Affect: normal affect Attitude: cooperative Thought process: Normal thought process present Thought content: Normal thought content present Insight: Good insight present (Psych) Judgement: Good judgement present (Psych) Assessment & Plan Assessment & Plan (1) Encounter for subsequent annual wellness visit (AWV) in Medicare patient: Code(s): Z00.00 - Encounter for general adult medical examination without abnormal findings Plan The patient agreed to the use of a biomedical service engineer for this encounter. Scribed for CALEB Beatty-PHAM by aMdeleine Shahid biomedical service engineer, on 12/02/2023 at 14:15 EST. Quality Reporting (2019) Depression/Bipolar (159/160/161/177) PHQ-9: Total score: 0 Coding Level of Care Code Medicare Subsequent (G0439) Diagnoses Encounter for subsequent annual wellness visit (AWV) in Medicare patient Z00.00 CPT Codes Advance Care Planning - Time spent: 1-15 minutes, on File ([id number]) Advance Care Planning Forms completed: Health Care Proxy (scanned), MOLST (scanned) and Living will (none done) Time spent: 1-15 minutes, on File Actual minutes spent: 15
== END 2023-12-02 14:38 | disposition home or self-care (01) ==
LOC: HO.HMGC 13:50
PROVIDERS: PCP Nurse Practitioner Family; Visit Provider Nurse Practitioner Family
DX: Z00.00 Encounter for general adult medical examination without abnormal findings (principal)
CPT/HCPCS: 1123F; G0439

== ENCOUNTER → 2024-02-18 23:59 | Outpatient (BNV) | payer MEDICARE, MEDICAID, SELFPAY ==
--- NOTE | 2024-02-27 15:10 | MHC.OFFVIS ---
Intake Visit Reasons: Remote ILR check- [employer]tr[employer] Allergies No Known Allergies Allergy (Verified 12/02/23 14:21) [facility] Medical History HTN (hypertension) Aortic stenosis Onychomycosis Cervical radiculopathy Elevated lipoprotein A level Vitamin B12 deficiency RLS (restless legs syndrome) PVD (peripheral vascular disease) Neuritis PAC (premature atrial contraction) Hyperlipidemia Diabetes mellitus CAD (coronary artery disease) Surgical History History of knee surgery Family History Father Bone cancer Mother Unknown family medical history Social History Housing: Apartment Alcohol intake: never Patient Tobacco Use Status: Former Tobacco user e-Cigarette/Vaping Use: Never Used Second Hand Smoke Exposure: No service: No Current occupational status: retired Cognitive needs: No Hearing needs: No Vision needs: No Office Procedures Cardiac Device Check Cardiac Device Check Details: Remote implantable loop recorder report generated 02/18/2024. No pauses or atrial fibrillation noted. Frequent PVC burden of 1.7% noted [id number] Cardiac Interrogation, subcut cardiac rhythm monitor Procedure code (CPT) selection complete Assessment & Plan Assessment & Plan (1) Status post placement of implantable loop recorder: Code(s): Z95.818 - Presence of other cardiac implants and grafts Category: Medical Plan: See above Coding Level of Care Code Procedure Only Diagnoses Status post placement of implantable loop recorder Z95.818 CPT Codes Cardiac Device Check - Cardiac Device 16: [id number] Cardiac Interrogation, subcut cardiac rhythm monitor ([id number])
== END ==
PROVIDERS: PCP Nurse Practitioner Family; Visit Provider Internal Medicine Cardiovascular Disease
DX: I49.3 Ventricular premature depolarization (principal); Z95.818 Presence of other cardiac implants and grafts
CPT/HCPCS: 93298

== ENCOUNTER 2024-04-07 14:59 | Outpatient (AMB) | payer MEDICARE, MEDICAID, SELFPAY ==
--- NOTE | 2024-04-07 15:05 | MHC.OFFVIS ---
Vital Signs 04/07/24 15:06 Height 5 ft 9 in Weight 151 lb BMI 22.3 BP 120/68 Blood Pressure Location Lt brachial Position Sitting Pulse 72 Pulse Source Pulse Oximeter Intake Visit Reasons: follow-up with medtronic ILR Allergies No Known Allergies Allergy (Verified 04/07/24 15:20) Medication List - Last Reconciled 04/07/24 by Chioma Temple NP amlodipine 5 mg PO DAILY aspirin 81 mg PO DAILY atorvastatin 80 mg PO DAILY blood sugar diagnostic (FreeStyle Lite Strips) Test blood sugar once a day blood-glucose meter (FreeStyle Lite Meter kit) As directed dapagliflozin propanediol (Farxiga) 5 mg PO DAILY flash glucose scanning reader (VurbStyle Krish 2 [place]) As directed flash glucose sensor (FreeStyle Krish 2 Sensor kit) As directed lancets (VurbStyle Lancets) Test blood sugar once a day lisinopril 5 mg PO DAILY 90 days metformin 500 mg PO DAILY paroxetine HCl 30 mg PO QAM HPI Comments Details: 73-year-old male presents today for follow-up visit. He was seen in August 2023. He reports since then he has been doing well. No syncope, lightheadedness, falls, shortness of breath, chest pains, or palpitations. He reports he has been compliant with his medications. [facility] Medical History HTN (hypertension) Aortic stenosis Onychomycosis Cervical radiculopathy Elevated lipoprotein A level Vitamin B12 deficiency RLS (restless legs syndrome) PVD (peripheral vascular disease) Neuritis PAC (premature atrial contraction) Hyperlipidemia Diabetes mellitus CAD (coronary artery disease) Surgical History History of knee surgery Family History Father Bone cancer Mother Unknown family medical history Social History Housing: Apartment Alcohol intake: never Patient Tobacco Use Status: Former Tobacco user e-Cigarette/Vaping Use: Never Used Second Hand Smoke Exposure: No service: No Current occupational status: retired Cognitive needs: No Hearing needs: No Vision needs: No Review of Systems Const Denies weakness ENT Denies dizziness Card Denies chest pain, Denies chest pain with activity, Denies syncope, Denies rapid heart rate, Denies pedal edema, Denies edema, Denies leg edema, Denies lightheadedness, Denies palpitations, Denies dyspnea, Denies dyspnea on exertion and Denies orthopnea Resp Denies cough, Denies dyspnea and Denies dyspnea on exertion GI Denies hematochezia and Denies change in stool character Musc Denies abnormal gait, Denies muscle cramps, Denies muscle weakness, Denies numbness, Denies radiating pain into limb and Denies tingling Neuro Denies abnormal gait, Denies dizziness, Denies syncope, Denies numbness, Denies tingling and Denies weakness Endo Denies palpitations Physical Exam Vital Signs: Last Vital Signs Pulse 72 04/07/24 15:06 BP 120/68 04/07/24 15:06 BMI result Body Mass Index 22.3 Const General: healthy appearing and no acute distress Orientation/consciousness: patient oriented x3 HEENT Head: Yes normal to inspection Eyes General: appearance normal, both eyes and all related structures Neck Neck: Yes normal visual inspection Chest Chest palpation & inspection: normal inspection of the chest Resp Effort & Inspection: normal respiratory effort Auscultation: clear to auscultation bilaterally Cardio Jugular venous distension: no JVD Palpation: normal PMI Rate: regular rate Rhythm: regular rhythm Heart sounds: S1 normal heart sound present, S2 normal heart sound present, no click, no gallops, no murmurs and no rubs GI Inspection: Yes normal to inspection Palpation (GI): Soft to palpation Skin General skin exam: no rashes or lesions noted Neuro General: patient oriented x3 Extrem General: Yes normal to inspection Psych Appearance: grossly normal Office Procedures Cardiac Device Check Cardiac Device Check Details: Medtronic ILR. With no alerts. PVC 2%. [id number] Cardiac Interrogation, subcut cardiac rhythm monitor Procedure code (CPT) selection complete Assessment & Plan Assessment & Plan (1) Status post placement of implantable loop recorder: Code(s): Z95.818 - Presence of other cardiac implants and grafts Category: Medical Plan: Medtronic ILR present. Uses remote monitoring. Interrogated today. No alerts. PVCs 2%. (2) HTN (hypertension): Code(s): I10 - Essential (primary) hypertension Category: Medical Plan: Within range today. On amlodipine 5 mg and lisinopril 5 mg. Continue. (3) Aortic stenosis: Code(s): I35.0 - Nonrheumatic aortic (valve) stenosis Category: Medical Plan: [id number] aortic stenosis on echocardiogram from May 2023. (4) Hyperlipidemia: Code(s): E78.5 - Hyperlipidemia, unspecified Category: Medical Plan: No recent lipid panel on file. We will send for labs. Orders: Orders Lipid Panel 04/07/24 I25.10 - Atherosclerotic heart disease of [place] coronary artery without angina pectoris Basic Metabolic Panel 04/07/24 I25.10 - Atherosclerotic heart disease of [place] coronary artery without angina pectoris Coding Level of Care Code Est Pt Level 4 (75805) Diagnoses Status post placement of implantable loop recorder Z95.818 HTN (hypertension) I10 Aortic stenosis I35.0 Hyperlipidemia E78.5 CPT Codes Cardiac Device Check - Cardiac Device 16: 53359-Pvbhgi Cardiac Interrogation, subcut cardiac rhythm monitor ([id number])
[2024-04-07 15:06] VITALS: BP 120/68; PULSE 72; BMI 22.3
== END 2024-04-07 15:31 | disposition home or self-care (01) ==
PROVIDERS: PCP Nurse Practitioner Family; Visit Provider Nurse Practitioner
DX: I10 Essential (primary) hypertension (principal); I35.0 Nonrheumatic aortic (valve) stenosis; E78.5 Hyperlipidemia, unspecified; Z45.09 Encounter for adjustment and management of other cardiac device
CPT/HCPCS: 93285; 99214

== ENCOUNTER → 2024-04-07 14:59 | Outpatient (BNVA) | payer MEDICARE, MEDICAID, SELFPAY | PROVIDERS: PCP Nurse Practitioner Family; Visit Provider Nurse Practitioner | DX: I10 Essential (primary) hypertension (principal); I35.0 Nonrheumatic aortic (valve) stenosis; E78.5 Hyperlipidemia, unspecified; Z95.818 Presence of other cardiac implants and grafts | CPT/HCPCS: 99212 ==

== ENCOUNTER → 2024-04-18 23:59 | Outpatient (BNV) | payer MEDICARE, MEDICAID, SELFPAY ==
--- NOTE | 2024-05-10 17:29 | MHC.OFFVIS ---
Intake Visit Reasons: Remote ILR check- [employer] Allergies No Known Allergies Allergy (Verified 04/07/24 15:20) PFSH Medical History HTN (hypertension) Aortic stenosis Onychomycosis Cervical radiculopathy Elevated lipoprotein A level Vitamin B12 deficiency RLS (restless legs syndrome) PVD (peripheral vascular disease) Neuritis PAC (premature atrial contraction) Hyperlipidemia Diabetes mellitus CAD (coronary artery disease) Surgical History History of knee surgery Family History Father Bone cancer Mother Unknown family medical history Social History Housing: Apartment Alcohol intake: never Patient Tobacco Use Status: Former Tobacco user e-Cigarette/Vaping Use: Never Used Second Hand Smoke Exposure: No service: No Current occupational status: retired Cognitive needs: No Hearing needs: No Vision needs: No Office Procedures Cardiac Device Check Cardiac Device Check Details: Remote implantable loop recorder report generated 04/18/2024. No atrial fibrillation or pauses noted. Total burden of PVCs at 1.9% [id number]-Mzqbjo Cardiac Interrogation, subcut cardiac rhythm monitor Procedure code (CPT) selection complete Assessment & Plan Assessment & Plan (1) Status post placement of implantable loop recorder: Code(s): Z95.818 - Presence of other cardiac implants and grafts Category: Medical Plan: See above Coding Level of Care Code Procedure Only Diagnoses Status post placement of implantable loop recorder Z95.818 CPT Codes Cardiac Device Check - Cardiac Device 16: 48021-Jnsawv Cardiac Interrogation, subcut cardiac rhythm monitor ([id number])
== END ==
PROVIDERS: PCP Nurse Practitioner Family; Visit Provider Internal Medicine Cardiovascular Disease
DX: I49.3 Ventricular premature depolarization (principal); Z95.818 Presence of other cardiac implants and grafts
CPT/HCPCS: 93298

== ENCOUNTER → 2024-05-18 23:59 | Outpatient (BNV) | payer MEDICARE, MEDICAID, SELFPAY ==
--- NOTE | 2024-05-20 13:22 | MHC.OFFVIS ---
Intake Visit Reasons: Remote ILR check- [employer] Allergies No Known Allergies Allergy (Verified 04/07/24 15:20) PFS Medical History HTN (hypertension) Aortic stenosis Onychomycosis Cervical radiculopathy Elevated lipoprotein A level Vitamin B12 deficiency RLS (restless legs syndrome) PVD (peripheral vascular disease) Neuritis PAC (premature atrial contraction) Hyperlipidemia Diabetes mellitus CAD (coronary artery disease) Surgical History History of knee surgery Family History Father Bone cancer Mother Unknown family medical history Social History Housing: Apartment Alcohol intake: never Patient Tobacco Use Status: Former Tobacco user e-Cigarette/Vaping Use: Never Used Second Hand Smoke Exposure: No service: No Current occupational status: retired Cognitive needs: No Hearing needs: No Vision needs: No Office Procedures Cardiac Device Check Cardiac Device Check Details: Implantable loop recorder report generated 05/18/2024. No atrial fibrillation or pauses noted. Frequent PVCs noted, total burden of 1.9% 45525-Supdpi Cardiac Interrogation, subcut cardiac rhythm monitor Procedure code (CPT) selection complete Assessment & Plan Assessment & Plan (1) Status post placement of implantable loop recorder: Code(s): Z95.818 - Presence of other cardiac implants and grafts Category: Medical Plan: See above Coding Level of Care Code Procedure Only Diagnoses Status post placement of implantable loop recorder Z95.818 CPT Codes Cardiac Device Check - Cardiac Device 16: 09187-Tpnyzc Cardiac Interrogation, subcut cardiac rhythm monitor ([id number])
== END ==
PROVIDERS: PCP Nurse Practitioner Family; Visit Provider Internal Medicine Cardiovascular Disease
DX: I49.3 Ventricular premature depolarization (principal); Z95.818 Presence of other cardiac implants and grafts
CPT/HCPCS: 93298

== ENCOUNTER → 2024-06-17 23:59 | Outpatient (BNV) | payer MEDICARE, MEDICAID, SELFPAY ==
--- NOTE | 2024-07-01 15:49 | A.OFFVIS_ITS ---
Intake Visit Reasons: Remote ILR check- [employer] Allergies No Known Allergies Allergy (Verified 04/07/24 15:20) [facility] Medical History (Updated 06/28/24 @ 07:08 by Wally Roa [facility]) HTN (hypertension) Aortic stenosis Onychomycosis Cervical radiculopathy Elevated lipoprotein A level Vitamin B12 deficiency RLS (restless legs syndrome) PVD (peripheral vascular disease) Neuritis PAC (premature atrial contraction) Hyperlipidemia Diabetes mellitus CAD (coronary artery disease) Surgical History History of knee surgery Family History Father Bone cancer Mother Unknown family medical history Social History Housing: Apartment Alcohol intake: never Patient Tobacco Use Status: Former Tobacco user e-Cigarette/Vaping Use: Never Used Second Hand Smoke Exposure: No service: No Current occupational status: retired Cognitive needs: No Hearing needs: No Vision needs: No Office Procedures Cardiac Device Check Cardiac Device Check Details: Remote implantable loop recorder report generated 06/17/2024. No atrial fibrillation or pauses noted. Total burden of PVCs at 1.9% [id number]-Cenqqi Cardiac Interrogation, subcut cardiac rhythm monitor Procedure code (CPT) selection complete Assessment & Plan Assessment & Plan (1) Status post placement of implantable loop recorder: Code(s): Z95.818 - Presence of other cardiac implants and grafts Category: Medical Plan: See above Coding Level of Care Code Procedure Only Diagnoses Status post placement of implantable loop recorder Z95.818 CPT Codes Cardiac Device Check - Cardiac Device 16: 31847-Rorpni Cardiac Interrogation, subcut cardiac rhythm monitor ([id number])
== END ==
PROVIDERS: PCP Nurse Practitioner Family; Visit Provider Internal Medicine Cardiovascular Disease
DX: I49.3 Ventricular premature depolarization (principal); Z95.818 Presence of other cardiac implants and grafts
CPT/HCPCS: 93298

== ENCOUNTER 2024-07-16 09:14 | Outpatient (REF) | payer MEDICARE, MEDICAID, SELFPAY ==
[2024-07-16 10:13] LABS: MANUAL DIFF FLAG NO
[2024-07-16 10:16] LABS: Basophils Percent Auto 0.5 % (0-2); Eosinophils Absolute Auto 0.2 X10*3/uL (0.0-0.4); Eosinophils Percent Auto 3.1 % (0-4); Hematocrit 47.3 % (42.0-52.0); Hemoglobin 15.9 g/dl (14.0-18.0); Imm Gran Abs Auto 0.01 X10*3/uL (0.00-0.03); Imm Gran Pct Auto 0.2 % (0.0-0.4); Lymphocytes Absolute Auto 1.5 X10*3/uL (1.2-4.9); Lymphocytes Percent Auto 24.5 % (20-40); Mean Corpuscular HGB Conc 33.6 g/dl (31.0-36.0); Mean Corpuscular Hemoglobin 29.7 pg (27.0-33.0); Mean Corpuscular Volume 88.2 fL (80.0-98.0); Mean Platelet Volume 9.8 fL (9.4-12.4); Monocytes Absolute Auto 0.6 X10*3/uL (0.1-1.2); Monocytes Percent Auto 9.8 % (2-11); Neutrophils Absolute Auto 3.8 x10*3/uL (2.0-8.3); Neutrophils Percent Auto 61.9 % (45-73); Platelet Count 182 X10*3/uL (160-400); Red Blood Count 5.36 X10*6/uL (4.60-5.80); Red Cell Distribution Width 12.9 % (11.0-16.0); White Blood Count 6.2 X10*3/uL (4.8-10.8)
[2024-07-16 11:12] LABS: Appearance Urine Clear; Color Urine Yellow; Glucose Urine UA >=1000 mg/dL (Negative); Leukocyte Esterase Urine Negative (Negative); Nitrite Urine Negative (Negative); Specific Gravity - Urine >= 1.030 (1.005-1.025); UMIC TRIGGER UACC YES; Urine Blood Negative (Negative); Urine Ketones Negative (Negative); Urine Protein Negative (Neg-Trace)
[2024-07-16 11:39] LABS: Creatinine Urine 116.51 mg/dL; Microalbum/Creatinine Ratio Ur 22.3 ug/mg cr (<30)
[2024-07-16 11:48] LABS: Folate 12.1 ng/mL (> or = 4.0); Vitamin B12 422 pg/mL (200-900)
[2024-07-16 12:00] LABS: Alanine Aminotransferase 41 U/L (0-40); Albumin Level 4.1 g/dL (3.5-5.0); Alkaline Phosphatase 93 U/L (39-117); Anion Gap 9 (12-20); Aspartate Amino Transferase 33 U/L (5-37); Bilirubin Total 0.5 mg/dL (0.0-1.0); Blood Urea Nitrogen 22 mg/dL (9-16); Calcium 9.3 mg/dL (8.4-10.2); Carbon Dioxide 31 mmol/L (22-29); Chloride 107 mmol/L (96-108); Cholesterol 158 mg/dL (<200); Estimated Glomerular Filt Rate > 60; Glucose Fasting 148 mg/dL (60-99); HDL Cholesterol 56 mg/dL (>40); LDL Cholesterol Calculated 85 mg/dL (<100); Potassium 4.3 mmol/L (3.3-5.1); Sodium 143 mmol/L (135-145); TSH reflex Free T4 1.72 uIU/mL (0.32-4.0); Total Protein 6.9 g/dL (6.5-8.0); Triglycerides 85 mg/dL (<150)
[2024-07-16 13:05] LABS: Bacteria Urine None Seen (None Seen); Hyaline Casts Urine 0-2 /LPF (0-2); RBC Urine 0-2 /HPF (0-2); Squamous Epithelial Cell Urine 0-2 /HPF (0-2); WBC Urine 0-5 /HPF (0-5)
== END 2024-07-16 09:15 | disposition home or self-care (01) ==
LOC: HO.HMGCLDS 09:14
PROVIDERS: PCP Nurse Practitioner Family; Visit Provider Nurse Practitioner Family
DX: E11.9 Type 2 diabetes mellitus without complications (principal); E53.8 Deficiency of other specified B group vitamins
CPT/HCPCS: 36415; 80053; 80061; 81001; 81003; 82043; 82570; 82607; 82746; 84443; 85025

== ENCOUNTER → 2024-07-17 23:59 | Outpatient (BNV) | payer MEDICARE, MEDICAID, SELFPAY ==
--- NOTE | 2024-07-23 16:23 | A.OFFVIS_ITS ---
Intake Visit Reasons: Remote ILR check- [employer] Allergies No Known Allergies Allergy (Verified 04/07/24 15:20) [facility] Medical History (Updated 07/16/24 @ 14:34 by Wally Roa [facility]) HTN (hypertension) Aortic stenosis Onychomycosis Cervical radiculopathy Elevated lipoprotein A level Vitamin B12 deficiency RLS (restless legs syndrome) PVD (peripheral vascular disease) Neuritis PAC (premature atrial contraction) Hyperlipidemia Diabetes mellitus CAD (coronary artery disease) Surgical History History of knee surgery Family History Father Bone cancer Mother Unknown family medical history Social History Housing: Apartment Alcohol intake: never Patient Tobacco Use Status: Former Tobacco user e-Cigarette/Vaping Use: Never Used Second Hand Smoke Exposure: No service: No Current occupational status: retired Cognitive needs: No Hearing needs: No Vision needs: No Office Procedures Cardiac Device Check Cardiac Device Check Details: Remote implantable loop recorder report generated 07/17/2024. No atrial fibrillation or pauses noted. Frequent PVCs noted, isolated 56389-Kfpfcx Cardiac Interrogation, subcut cardiac rhythm monitor Procedure code (CPT) selection complete Assessment & Plan Assessment & Plan (1) Status post placement of implantable loop recorder: Code(s): Z95.818 - Presence of other cardiac implants and grafts Category: Medical Plan: See above Coding Level of Care Code Procedure Only Diagnoses Status post placement of implantable loop recorder Z95.818 CPT Codes Cardiac Device Check - Cardiac Device 16: 85655-Rpsjcd Cardiac Interrogation, subcut cardiac rhythm monitor ([id number])
== END ==
PROVIDERS: PCP Nurse Practitioner Family; Visit Provider Internal Medicine Cardiovascular Disease
DX: Z45.09 Encounter for adjustment and management of other cardiac device (principal)
CPT/HCPCS: 93298

== ENCOUNTER → 2024-08-16 23:59 | Outpatient (BNV) | payer MEDICARE, MEDICAID, SELFPAY ==
--- NOTE | 2024-08-19 14:09 | MHC.OFFVIS ---
Intake Visit Reasons: Remote ILR check- [employer] Allergies No Known Allergies Allergy (Verified 04/07/24 15:20) [facility] Medical History (Updated 07/16/24 @ 14:34 by Wally Roa [facility]) HTN (hypertension) Aortic stenosis Onychomycosis Cervical radiculopathy Elevated lipoprotein A level Vitamin B12 deficiency RLS (restless legs syndrome) PVD (peripheral vascular disease) Neuritis PAC (premature atrial contraction) Hyperlipidemia Diabetes mellitus CAD (coronary artery disease) Surgical History History of knee surgery Family History Father Bone cancer Mother Unknown family medical history Social History Housing: Apartment Alcohol intake: never Patient Tobacco Use Status: Former Tobacco user e-Cigarette/Vaping Use: Never Used Second Hand Smoke Exposure: No service: No Current occupational status: retired Cognitive needs: No Hearing needs: No Vision needs: No Office Procedures Cardiac Device Check Cardiac Device Check Details: Remote implantable loop recorder report generated 08/17/2024. No atrial fibrillation or pauses noted. PVC burden at 1.8% mostly isolated 45043-Nlqlas Cardiac Interrogation, subcut cardiac rhythm monitor Procedure code (CPT) selection complete Assessment & Plan Assessment & Plan (1) Status post placement of implantable loop recorder: Code(s): Z95.818 - Presence of other cardiac implants and grafts Category: Medical Plan: See above Coding Level of Care Code Procedure Only Diagnoses Status post placement of implantable loop recorder Z95.818 CPT Codes Cardiac Device Check - Cardiac Device 16: 11488-Lujruv Cardiac Interrogation, subcut cardiac rhythm monitor ([id number])
== END ==
PROVIDERS: PCP Nurse Practitioner Family; Visit Provider Internal Medicine Cardiovascular Disease
DX: I49.3 Ventricular premature depolarization (principal); Z95.818 Presence of other cardiac implants and grafts
CPT/HCPCS: 93298

== ENCOUNTER → 2024-09-15 23:59 | Outpatient (BNV) | payer MEDICARE, MEDICAID, SELFPAY ==
--- NOTE | 2024-09-20 16:04 | MHC.OFFVIS ---
Intake Visit Reasons: Remote ILR check- [employer] Allergies No Known Allergies Allergy (Verified 04/07/24 15:20) [facility] Medical History (Updated 07/16/24 @ 14:34 by Wally Roa [facility]) HTN (hypertension) Aortic stenosis Onychomycosis Cervical radiculopathy Elevated lipoprotein A level Vitamin B12 deficiency RLS (restless legs syndrome) PVD (peripheral vascular disease) Neuritis PAC (premature atrial contraction) Hyperlipidemia Diabetes mellitus CAD (coronary artery disease) Surgical History History of knee surgery Family History Father Bone cancer Mother Unknown family medical history Social History Housing: Apartment Alcohol intake: never Patient Tobacco Use Status: Former Tobacco user e-Cigarette/Vaping Use: Never Used Second Hand Smoke Exposure: No service: No Current occupational status: retired Cognitive needs: No Hearing needs: No Vision needs: No Office Procedures Cardiac Device Check Cardiac Device Check Details: Remote implantable loop recorder report generated 09/15/2024. No atrial fibrillation or pauses noted. Frequent PVCs noted with total burden of 2.3% 33348-Grsgxh Cardiac Interrogation, subcut cardiac rhythm monitor Procedure code (CPT) selection complete Assessment & Plan Assessment & Plan (1) Status post placement of implantable loop recorder: Code(s): Z95.818 - Presence of other cardiac implants and grafts Category: Medical Plan: See above Coding Level of Care Code Procedure Only Diagnoses Status post placement of implantable loop recorder Z95.818 CPT Codes Cardiac Device Check - Cardiac Device 16: 29613-Zbcwtu Cardiac Interrogation, subcut cardiac rhythm monitor ([id number])
== END ==
PROVIDERS: PCP Nurse Practitioner Family; Visit Provider Internal Medicine Cardiovascular Disease
DX: I49.3 Ventricular premature depolarization (principal); Z95.818 Presence of other cardiac implants and grafts
CPT/HCPCS: 93298

== ENCOUNTER → 2024-10-15 23:59 | Outpatient (BNV) | payer MEDICARE, MEDICAID, SELFPAY ==
--- NOTE | 2024-10-27 13:43 | MHC.OFFVIS ---
Intake Visit Reasons: Remote ILR check- [employer] Allergies No Known Allergies Allergy (Verified 04/07/24 15:20) [facility] Medical History (Updated 07/16/24 @ 14:34 by Wally Roa [facility]) HTN (hypertension) Aortic stenosis Onychomycosis Cervical radiculopathy Elevated lipoprotein A level Vitamin B12 deficiency RLS (restless legs syndrome) PVD (peripheral vascular disease) Neuritis PAC (premature atrial contraction) Hyperlipidemia Diabetes mellitus CAD (coronary artery disease) Surgical History History of knee surgery Family History Father Bone cancer Mother Unknown family medical history Social History Housing: Apartment Alcohol intake: never Patient Tobacco Use Status: Former Tobacco user e-Cigarette/Vaping Use: Never Used Second Hand Smoke Exposure: No service: No Current occupational status: retired Cognitive needs: No Hearing needs: No Vision needs: No Office Procedures Cardiac Device Check Cardiac Device Check Details: Remote implantable loop recorder report generated 10/15/2024. No pauses or atrial fibrillation noted. Total burden of PVC at 2.5% 16597-Ernlhh Cardiac Interrogation, subcut cardiac rhythm monitor Procedure code (CPT) selection complete Assessment & Plan Assessment & Plan (1) Status post placement of implantable loop recorder: Code(s): Z95.818 - Presence of other cardiac implants and grafts Category: Medical Plan: See above Coding Level of Care Code Procedure Only Diagnoses Status post placement of implantable loop recorder Z95.818 CPT Codes Cardiac Device Check - Cardiac Device 16: [id number] Cardiac Interrogation, subcut cardiac rhythm monitor ([id number])
== END ==
PROVIDERS: PCP Nurse Practitioner Family; Visit Provider Internal Medicine Cardiovascular Disease
DX: I49.3 Ventricular premature depolarization (principal); Z95.818 Presence of other cardiac implants and grafts
CPT/HCPCS: 93298

== ENCOUNTER → 2024-11-14 23:59 | Outpatient (BNV) | payer MEDICARE, MEDICAID, SELFPAY ==
--- NOTE | 2024-11-17 18:04 | MHC.OFFVIS ---
Intake Visit Reasons: Remote ILR check- [employer] Allergies No Known Allergies Allergy (Verified 04/07/24 15:20) [facility] Medical History (Updated 07/16/24 @ 14:34 by Wally Roa [facility]) HTN (hypertension) Aortic stenosis Onychomycosis Cervical radiculopathy Elevated lipoprotein A level Vitamin B12 deficiency RLS (restless legs syndrome) PVD (peripheral vascular disease) Neuritis PAC (premature atrial contraction) Hyperlipidemia Diabetes mellitus CAD (coronary artery disease) Surgical History History of knee surgery Family History Father Bone cancer Mother Unknown family medical history Social History Housing: Apartment Alcohol intake: never Patient Tobacco Use Status: Former Tobacco user e-Cigarette/Vaping Use: Never Used Second Hand Smoke Exposure: No service: No Current occupational status: retired Cognitive needs: No Hearing needs: No Vision needs: No Office Procedures Cardiac Device Check Cardiac Device Check Details: Remote implantable loop recorder report generated 11/14/2024. Total burden of PVC at 2.8%. No other arrhythmias or pauses noted [id number]-Adfrxw Cardiac Interrogation, subcut cardiac rhythm monitor Procedure code (CPT) selection complete Assessment & Plan Assessment & Plan (1) Status post placement of implantable loop recorder: Code(s): Z95.818 - Presence of other cardiac implants and grafts Category: Medical Plan: See above Coding Level of Care Code Procedure Only Diagnoses Status post placement of implantable loop recorder Z95.818 CPT Codes Cardiac Device Check - Cardiac Device 16: [id number] Cardiac Interrogation, subcut cardiac rhythm monitor ([id number])
== END ==
PROVIDERS: PCP Nurse Practitioner Family; Visit Provider Internal Medicine Cardiovascular Disease
DX: I49.3 Ventricular premature depolarization (principal); Z95.818 Presence of other cardiac implants and grafts
CPT/HCPCS: 93298

== ENCOUNTER 2024-12-02 07:08 | Outpatient (REF) | payer MEDICARE, MEDICAID, SELFPAY ==
[2024-12-02 10:44] LABS: Estimated Average Glucose 154 mg/dL; Hemoglobin A1C 214.4208 umol/L; Total Hemoglobin (HGBA1C) 4040.1556 umol/L
[2024-12-02 10:58] LABS: Appearance Urine Clear; Color Urine Yellow; Glucose Urine UA >=1000 mg/dL (Negative); Leukocyte Esterase Urine Negative (Negative); Nitrite Urine Negative (Negative); Specific Gravity - Urine >= 1.030 (1.005-1.025); UMIC TRIGGER UACC YES; Urine Blood Negative (Negative); Urine Ketones Negative (Negative); Urine Protein Negative (Neg-Trace)
[2024-12-02 11:07] LABS: Alanine Aminotransferase 27 U/L (0-40); Albumin Level 4.2 g/dL (3.5-5.0); Alkaline Phosphatase 88 U/L (39-117); Anion Gap 11 (12-20); Aspartate Amino Transferase 27 U/L (5-37); Bilirubin Total 0.4 mg/dL (0.0-1.0); Blood Urea Nitrogen 28 mg/dL (9-16); Calcium 9.6 mg/dL (8.4-10.2); Carbon Dioxide 28 mmol/L (22-29); Chloride 107 mmol/L (96-108); Estimated Glomerular Filt Rate > 60; Glucose Random 150 mg/dL (60-115); Potassium 4.4 mmol/L (3.3-5.1); Sodium 142 mmol/L (135-145); Total Protein 6.7 g/dL (6.5-8.0)
[2024-12-02 11:08] LABS: Bacteria Urine None Seen (None Seen); Hyaline Casts Urine 0-2 /LPF (0-2); RBC Urine 0-2 /HPF (0-2); Squamous Epithelial Cell Urine 0-2 /HPF (0-2); WBC Urine 0-5 /HPF (0-5)
[2024-12-02 11:22] LABS: Prostate Specific Antigen Scr 2.85 ng/mL (<0.05-4.0)
[2024-12-02 11:25] LABS: HBS Num1 3.16 mIU/mL (0-7.99); HBsAGNum1 0.31 S/CO (0.00-0.99); Hepatitis A Antibody IgM 0.17 Index (0-0.79); Hepatitis B Core Antibody Nonreactive (Nonreactive); Hepatitis B Surface Antigen Negative (Negative); ~HepC Num1 0.17 S/CO (0.00-0.79); ~Hepatitis A Antibody IgM Nonreactive (Nonreactive); ~Hepatitis B Surface Antibody NONREACTIVE (Nonreactive); ~Hepatitis C Antibody Nonreactive (Nonreactive)
== END 2024-12-02 07:09 | disposition home or self-care (01) ==
LOC: HO.HMGCLDS 07:08
PROVIDERS: PCP Nurse Practitioner Family; Visit Provider Nurse Practitioner Family
DX: Z00.00 Encounter for general adult medical examination without abnormal findings (principal); E11.9 Type 2 diabetes mellitus without complications; R74.8 Abnormal levels of other serum enzymes; Z12.5 Encounter for screening for malignant neoplasm of prostate
CPT/HCPCS: 36415; 80053; 81001; 83036; 84153; 86704; 86706; 86709; 86803; 87340; 99212

== ENCOUNTER 2024-12-02 13:32 | Outpatient (AMB) | payer MEDICARE, MEDICAID, SELFPAY ==
[2024-12-02 13:38] VITALS: BP 138/80; PULSE 68; RESP 14; TEMP 36.8; O2SAT 93; BMI 22.6
--- NOTE | 2024-12-02 13:38 | MHC.PC.OV ---
Vital Signs 12/02/24 13:38 Height 5 ft 9 in Weight 153 lb BMI 22.6 BP 138/80 Respiration 14 Pulse 68 Pulse Source Pulse Oximeter Temp 98.3 F Temp Source Oral Pulse Oximetry (%) 93 Oxygen Delivery Method Room Air Intake Visit Reasons: PE- medicare OK'd Mix House Tender Required: No Accompanied by: Self / Same As Patient Allergies No Known Allergies Allergy (Verified 12/02/24 13:38) Medication List - Last Reconciled 12/02/24 by CALEB [facility] amlodipine 5 mg PO DAILY aspirin 81 mg PO DAILY atorvastatin 80 mg PO DAILY blood sugar diagnostic (FreeStyle Lite Strips) Test blood sugar once a day blood-glucose meter (FreeStyle Lite Meter kit) As directed dapagliflozin propanediol 10 mg PO DAILY flash glucose scanning reader (SpeedyboyStyle Krish 2 [place]) As directed flash glucose sensor (FreeStyle Krish 2 Sensor kit) As directed lancets (FreeStyle Lancets) Test blood sugar once a day lisinopril 5 mg PO DAILY metformin 500 mg PO DAILY paroxetine HCl 30 mg PO QAM Tobacco use date assessed: 12/02/24 Fall risk assessment: 1 Fall in past year Last assessed Fall Risk: 12/02/24 Dental Screening Dental Screen Date: 12/02/24 Did you have a dental visit in the last 12 months?: Yes Did you have a dental problem in the last 6 months where you did not have access to dental care?: No Was dental information given to patient?: Patient has dentist (patient has dentures) HPI PE- medicare OK'd HPI Details Chief Complaint Follow-up for diabetes management and monitoring PSA levels. History of Present Illness The patient is a 74-year-old male presenting with Type 2 Diabetes Mellitus follow-up and elevated PSA levels. The patient's Hemoglobin A1c is slightly above 7%, indicating the need for adjustments in diabetic management. Additionally, there has been an increase in PSA levels over the last two years, necessitating continued monitoring. The patient denies neuropathy and urinary symptoms, which are relevant to the management of his current conditions. Social History Health Maintenance - Monitoring of PSA levels due to recent increases over the past two years. - Glycemic control with A1c monitoring. Review of Systems - Cardiovascular: Denies chest pain, shortness of breath, orthopnea, or PND - Neurological: Denies neuropathy. - Genitourinary: Denies urinary symptoms. Physical Exam General: Cooperative, healthy appearing, comfortable, no acute distress and well developed Orientation: Patient oriented x3 Limitations: No limitations Head: Normal to inspection Ears: Hearing grossly normal bilaterally Nose: Normal external nose present Face and sinus: Normal facial exam Eyes: Appearance normal, both eyes and all related structures Neck: Normal visual inspection and Yes full ROM Respiratory: Slightly diminished, able to speak in complete sentences. Clear to auscultation bilaterally Cardiovascular: Regular rate and rhythm. Normal S1 and S2. Systolic murmur noted GI: Normal to inspection. Soft to palpation and nontender Skin: No rashes or lesions noted Neuro: Patient oriented x3 Extremities: Normal to inspection. Fegor intact bilaterally with positive incision use of monofilament Results - Labs: A1c is slightly above 7%. Plan I will increase the patient's diabetes medication to 10 mg to improve glycemic control. We will recheck the PSA level in six months due to the previous increase, and I will continue to monitor these conditions closely. Discussion Notes I discussed with the patient the importance of managing his Type 2 Diabetes Mellitus and the rationale for increasing his medication dosage. We reviewed the potential benefits of improved glycemic control and the need to monitor PSA levels due to recent increases. The patient understands the plan and agrees to follow up in six months for further evaluation. Patient Instructions - Increase diabetes medication dosage as instructed. - Follow up in six months for PSA level recheck. - Monitor for any new symptoms and report them promptly. [facility] Medical History HTN (hypertension) Aortic stenosis Onychomycosis Cervical radiculopathy Elevated lipoprotein A level Vitamin B12 deficiency RLS (restless legs syndrome) PVD (peripheral vascular disease) Neuritis PAC (premature atrial contraction) Hyperlipidemia Diabetes mellitus CAD (coronary artery disease) Surgical History History of knee surgery Family History Father Bone cancer Mother Unknown family medical history Social History Housing: Apartment Alcohol intake: never Patient Tobacco Use Status: Former Tobacco user e-Cigarette/Vaping Use: Never Used Second Hand Smoke Exposure: No service: No Current occupational status: retired Cognitive needs: No Hearing needs: No Vision needs: Yes (rx glasses) Questionnaire PHQ-9 Over the last 2 weeks, how often have you been bothered by any of the following problems? 1. Little interest or pleasure in doing things: nearly every day 2. Feeling down, depressed, or hopeless: nearly every day 3. Trouble falling or staying asleep, or sleeping too much: nearly every day 4. Feeling tired or having little energy: nearly every day 5. Poor appetite or overeating: not at all 6. Feeling bad about yourself - or that you are a failure or have let yourself or your family down: not at all 7. Trouble concentrating on things, such as reading the newspaper or watching television: not at all 8. Moving or speaking so slowly that other people could have noticed. Or the opposite - being so fidgety or restless that you have been moving around a lot more than usual: not at all 9. Thoughts that you would be better off or of hurting yourself in some way: not at all Total score: 12 Depression Screening Interpretation: Positive (denies any si or hi) Depression Screening Follow-up: Existing condition Depression Screening Done: Yes Source: Developed by Drs. Uriah Laughlin, Serena Jacome, John Garcia and colleagues, with an educational adrienne from [employer]. Thrive Questionnaire Date Thrive assessed: 12/02/24 I am a: Patient What is your living situation today?: I have a steady place to live Within the past 12 months, did the food you bought not last and you didn't have the money to get more?: Never true Within the past 12 months, did you worry whether your food would run out before you got money to buy more?: Never true Do you have trouble paying for medicines?: No Do you have trouble getting transportation to medical appointments?: No Do you have trouble paying your heating and electricity bill?: No Do you have trouble taking care of your child, family member or friend?: No Do you have trouble with day-to-day activities such as bathing, preparing meals, shopping, managing finances, etc.?: No Are you currently unemployed and looking for a job?: No Are you interested in more education?: No Please select the resources that you would like help with: None THRIVE Score: 0 AUDIT C Alcohol Use Questionnaire (AUDIT-C) 1. How often do you have a drink containing alcohol?: Never 3. How often do you have six or more drinks on one occasion?: Never Total Score: 0 Score Reviewed/Action Taken: No CHRISTIE-7 AMB Questionnaire CHRSITIE-7 Date CHRISTIE - 7 assessed: 12/02/24 Feeling nervous, anxious, or on edge: 0 = Not at all Not being able to stop or control worryin = Not at all Worrying too much about different things: 0 = Not at all Trouble relaxin = Not at all Being so restless that it is hard to sit still: 0 = Not at all Becoming easily annoyed or irritable: 0 = Not at all Feeling afraid as if something awful might happen: 0 = Not at all Total CHRISTIE-7 score (0-4 normal; 5-9 mild; 10-14 moderate; 15-21 severe): 0 Source: Developed by Drs. Uriah Laughlin, Serena Jacome, John Garcia and colleagues, with an educational adrienne from [employer]. Physical exam (Primary Care) Vital Signs: Last Vital Signs Temp 98.3 F 12/02/24 13:38 Pulse 68 12/02/24 13:38 Resp 14 12/02/24 13:38 BP 138/80 12/02/24 13:38 Pulse Ox 93 12/02/24 13:38 Oxygen Delivery Method Room Air 12/02/24 13:38 BMI result Body Mass Index 22.6 Tobacco/Smoking Status: Tobacco use Status Tobacco use date assessed 12/02/24 12/02/24 13:45 Patient Tobacco Use Status Former Tobacco user 12/02/24 13:45 e-Cigarette/Vaping Use Never Used 12/02/24 13:45 PHQ-9: PHQ-9 Score PHQ-9: Total score 12 12/02/24 13:48 Depression Screening Interpretation: Positive (denies any si or hi) Depression Screening Follow-up: Existing condition Thrive Assessment: Date of Thrive Assessment Date Thrive assessed 12/02/24 12/02/24 13:45 Coding Level of Care Code Est Pt Level 3 (08032) Diagnoses Screening PSA (prostate specific antigen) Z12.5 Diabetes mellitus E11.9 Assessment & Plan Assessment & Plan (1) Screening PSA (prostate specific antigen): Code(s): Z12.5 - Encounter for screening for malignant neoplasm of prostate Category: Medical (2) Diabetes mellitus: Code(s): E11.9 - Type 2 diabetes mellitus without complications Category: Medical Plan . Orders: Orders Prostate Specific Antigen Scr 6 Months Z12.5 - Encounter for screening for malignant neoplasm of prostate Medications: Changed From dapagliflozin propanediol (Farxiga) 5 mg PO DAILY 90 tabs 0RF To dapagliflozin propanediol 10 mg PO DAILY 30 tabs 4RF
== END 2024-12-02 14:17 | disposition home or self-care (01) ==
LOC: HO.HMCC 13:33
PROVIDERS: PCP Nurse Practitioner Family; Visit Provider Nurse Practitioner Family
DX: Z12.5 Encounter for screening for malignant neoplasm of prostate (principal); E11.9 Type 2 diabetes mellitus without complications

== ENCOUNTER 2024-12-13 13:40 | Outpatient (AMB) | payer MEDICARE, MEDICAID, SELFPAY ==
[2024-12-13 13:44] VITALS: BP 138/62; PULSE 73; BMI 22.5
--- NOTE | 2024-12-13 13:44 | A.OFFVIS_ITS ---
Vital Signs 12/13/24 13:44 Height 5 ft 9 in Weight 152 lb 8.958 oz BMI 22.5 BP 138/62 Blood Pressure Location Lt brachial Position Sitting Pulse 73 Pulse Source Monitor Intake Visit Reasons: ILR check and ov Aircraft Refueller Required: No Allergies No Known Allergies Allergy (Verified 12/13/24 13:50) Medication List - Last Reconciled 12/13/24 by Kerry Dumont NP-Stephany amlodipine 5 mg PO DAILY aspirin 81 mg PO DAILY atorvastatin 80 mg PO DAILY blood sugar diagnostic (FreeStyle Lite Strips) Test blood sugar once a day blood-glucose meter (FreeStyle Lite Meter kit) As directed dapagliflozin propanediol 10 mg PO DAILY flash glucose scanning reader (Pure FocusStyle Krish 2 [place]) As directed flash glucose sensor (FreeStyle Krish 2 Sensor kit) As directed lancets (FreeStyle Lancets) Test blood sugar once a day lisinopril 5 mg PO DAILY metformin 500 mg PO DAILY paroxetine HCl 30 mg PO QAM HPI HPI ILR check and ov: Details: Uriah is a 74-year-old male with past medical history of hypertension, hyperlipidemia, diabetes, peripheral vascular disease, aortic stenosis, syncope who has implanted loop recorder in place who presents for follow-up. Today he reports that he has not had any recurrent episodes syncope. No lightheadedness, presyncope, falls. He denies chest discomfort at rest or with activity. No shortness of breath, palpitations, PND, orthopnea or edema. He reports good activity tolerance. He is taking his meds as directed. [facility] Medical History HTN (hypertension) Aortic stenosis Onychomycosis Cervical radiculopathy Elevated lipoprotein A level Vitamin B12 deficiency RLS (restless legs syndrome) PVD (peripheral vascular disease) Neuritis PAC (premature atrial contraction) Hyperlipidemia Diabetes mellitus CAD (coronary artery disease) Surgical History History of knee surgery Family History Father Bone cancer Mother Unknown family medical history Social History Housing: Apartment Alcohol intake: never Patient Tobacco Use Status: Former Tobacco user e-Cigarette/Vaping Use: Never Used Second Hand Smoke Exposure: No service: No Current occupational status: retired Cognitive needs: No Hearing needs: No Vision needs: Yes (rx glasses) Review of Systems Const All systems reviewed & are unremarkable except as noted in HPI and below ENT Denies dizziness Card Denies chest pain, Denies chest pain at rest, Denies chest pain with activity, Denies rapid heart rate, Denies pedal edema, Denies edema, Denies leg edema, Denies lightheadedness, Denies palpitations, Denies dyspnea, Denies dyspnea on exertion and Denies orthopnea Resp Denies cough, Denies dyspnea and Denies dyspnea on exertion GI Denies hematochezia and Denies change in stool character Musc Denies abnormal gait, Denies limited range of motion, Reports muscle cramps, Denies muscle weakness, Denies numbness, Denies radiating pain into limb, Denies stiffness and Denies tingling Neuro Denies abnormal gait, Denies dizziness, Denies numbness and Denies tingling Endo Denies palpitations Physical Exam Vital Signs: BMI result Body Mass Index 22.5 Const General: cooperative, healthy appearing, comfortable and no acute distress Orientation/consciousness: patient oriented x3 Neck Neck: Yes normal visual inspection and Yes no JVD Resp Effort & Inspection: normal respiratory effort Auscultation: clear to auscultation bilaterally, no crackles, no rales, no rhonchi and no wheezes Cardio Jugular venous distension: no JVD Rate: regular rate Rhythm: regular rhythm Heart sounds: S1 normal heart sound present, S2 normal heart sound present, Murmur heart sound present (2/6 systolic right sternal border) and no rubs Neuro General: patient oriented x3 Extrem General: Yes normal to inspection and No no pedal edema Psych Appearance: grossly normal Mental Status: mental status grossly normal Speech and movement: Normal speech and movement present Office Procedures Cardiac Device Check Cardiac Device Check Details: Medtronic implanted loop recorder interrogation today shows no recent events, PVCs 2.8% of time, rhythm strip sinus rhythm with PACs versus sinus arrhythmia, battery good [id number] Cardiac Device Check, subcut cardiac rhythm monitor Procedure code (CPT) selection complete EKG Details: Today, read by me, sinus rhythm with sinus arrhythmia, rate 73, QTC 409 milliseconds [id number], Complete Assessment & Plan Assessment & Plan (1) Syncope: Code(s): R55 - Syncope and collapse Category: Medical Plan: Syncopal event with injury in the past. Cardiac event monitor done 06/02/2023 for 30 days showing sinus rhythm with average heart rate 72, rare SVE and VE. Echocardiogram done 05/26/2023 showed normal EF 60-65%. Implanted loop recorder placed 08/20/23. No contributing arrythmias have been identified. Will continue to follow remotely. Office visit in 6 months, sooner if needed. (2) Aortic stenosis: Code(s): I35.0 - Nonrheumatic aortic (valve) stenosis Category: Medical Plan: Echo done 05/26/2023 shows [id number] aortic valve stenosis. This was unchanged from echo done 05/15/2022. Echocardiogram has been ordered for 07/2024 and not completed for unclear reason. Will order repeat echocardiogram at this time and plan to call him with results. (3) HTN (hypertension): Code(s): I10 - Essential (primary) hypertension Category: Medical Plan: Blood pressure goal less than 130/80. Near goal at this time. Continue amlodipine and lisinopril. Plan I discussed with the patient the current status of his ILR showing no concerning arrhythmias and a good battery status. We have agreed to continue with the device in situ until the battery depletes, for ongoing heart rhythm monitoring. The mild to moderate aortic stenosis detected on the last echocardiogram and a repeat scan is ordered to ensure no advancement of valvular disease. I explained the need for consistent monitoring of his diabetes, highlighting the importance of maintaining a close check on HbA1c levels, and encouraged adherence to prescribed medications and lifestyle adjustments. Orders: Orders CA echo transthoracic complete Today I35.0 - Nonrheumatic aortic (valve) stenosis Patient Instructions: - Monitor any new or worsening symptoms like chest pain or breathing difficulty. - Adhere to diabetes medications and implement lifestyle changes to manage blood sugar. - Attend the scheduled echocardiogram. - Follow up in six months or earlier if necessary. - Report to the clinic if experience syncope, palpitations, chest pain, or any new symptoms. Patient was informed and verbally consented to the use of an ambient scribe for clinic note documentation during this visit. Visit time spent on chart review, interview, assessment, orders, documentation. Coding Level of Care Code Est Pt Level 3 (68761) Complex EM visit Add On G2211 Diagnoses Syncope R55 Aortic stenosis I35.0 HTN (hypertension) I10 CPT Codes Cardiac Device Check - Cardiac Device 7: [id number] Cardiac Device Check, subcut cardiac rhythm monitor ([id number]) EKG - CPT: 16249-[id number], Complete ([id number]) Time Spent (min) 24
== END 2024-12-13 14:18 | disposition home or self-care (01) ==
LOC: HO.HCS 13:40
PROVIDERS: PCP Nurse Practitioner Family; Visit Provider Nurse Practitioner Family
DX: R55 Syncope and collapse (principal); I35.0 Nonrheumatic aortic (valve) stenosis; I10 Essential (primary) hypertension
CPT/HCPCS: 93010; 93285; 99213; G2211

== ENCOUNTER → 2024-12-13 13:40 | Outpatient (BNVA) | payer MEDICARE, MEDICAID, SELFPAY | PROVIDERS: PCP Nurse Practitioner Family; Visit Provider Nurse Practitioner Family | DX: Z45.09 Encounter for adjustment and management of other cardiac device (principal); R55 Syncope and collapse; I35.0 Nonrheumatic aortic (valve) stenosis; I10 Essential (primary) hypertension | CPT/HCPCS: 93005; 99212 ==

== ENCOUNTER → 2024-12-13 23:59 | Outpatient (BNV) | payer MEDICARE, MEDICAID, SELFPAY ==
--- NOTE | 2024-12-14 17:51 | MHC.OFFVIS ---
Intake Visit Reasons: Remote ILR check- Medtr[employer] Allergies No Known Allergies Allergy (Verified 12/13/24 13:50) PFSH Medical History HTN (hypertension) Aortic stenosis Onychomycosis Cervical radiculopathy Elevated lipoprotein A level Vitamin B12 deficiency RLS (restless legs syndrome) PVD (peripheral vascular disease) Neuritis PAC (premature atrial contraction) Hyperlipidemia Diabetes mellitus CAD (coronary artery disease) Surgical History History of knee surgery Family History Father Bone cancer Mother Unknown family medical history Social History Housing: Apartment Alcohol intake: never Patient Tobacco Use Status: Former Tobacco user e-Cigarette/Vaping Use: Never Used Second Hand Smoke Exposure: No service: No Current occupational status: retired Cognitive needs: No Hearing needs: No Vision needs: Yes (rx glasses) Office Procedures Cardiac Device Check Cardiac Device Check Details: Remote implantable loop recorder report generated 12/14/2024. No significant pauses or atrial fibrillation noted. Frequent isolated PVCs noted with total burden of 2.2% [id number] Cardiac Interrogation, subcut cardiac rhythm monitor Procedure code (CPT) selection complete Assessment & Plan Assessment & Plan (1) Status post placement of implantable loop recorder: Code(s): Z95.818 - Presence of other cardiac implants and grafts Category: Medical Plan: See above Coding Level of Care Code Procedure Only Diagnoses Status post placement of implantable loop recorder Z95.818 CPT Codes Cardiac Device Check - Cardiac Device 16: [id number] Cardiac Interrogation, subcut cardiac rhythm monitor ([id number])
== END ==
PROVIDERS: PCP Nurse Practitioner Family; Visit Provider Internal Medicine Cardiovascular Disease
DX: I49.3 Ventricular premature depolarization (principal); Z95.818 Presence of other cardiac implants and grafts
CPT/HCPCS: 93298

== ENCOUNTER → 2025-01-04 23:59 | Outpatient (BNV) | payer MEDICARE, MEDICAID, SELFPAY ==
--- NOTE | 2025-01-11 14:44 | MHC.OFFVIS ---
Intake Visit Reasons: Remote ILR check- Medtronic Allergies No Known Allergies Allergy (Verified 12/13/24 13:50) PFSH Medical History HTN (hypertension) Aortic stenosis Onychomycosis Cervical radiculopathy Elevated lipoprotein A level Vitamin B12 deficiency RLS (restless legs syndrome) PVD (peripheral vascular disease) Neuritis PAC (premature atrial contraction) Hyperlipidemia Diabetes mellitus CAD (coronary artery disease) Surgical History History of knee surgery Family History Father Bone cancer Mother Unknown family medical history Social History Housing: Apartment Alcohol intake: never Patient Tobacco Use Status: Former Tobacco user e-Cigarette/Vaping Use: Never Used Second Hand Smoke Exposure: No service: No Current occupational status: retired Cognitive needs: No Hearing needs: No Vision needs: Yes (rx glasses) Office Procedures Cardiac Device Check Cardiac Device Check Details: Remote implantable loop recorder report generated 01/04/2025. No pauses or atrial fibrillation noted. Frequent PVCs noted with total burden of 2.8% [id number] Cardiac Interrogation, subcut cardiac rhythm monitor Procedure code (CPT) selection complete Assessment & Plan Assessment & Plan (1) Status post placement of implantable loop recorder: Code(s): Z95.818 - Presence of other cardiac implants and grafts Category: Medical Plan: See above Coding Level of Care Code Procedure Only Diagnoses Status post placement of implantable loop recorder Z95.818 CPT Codes Cardiac Device Check - Cardiac Device 16: [id number] Cardiac Interrogation, subcut cardiac rhythm monitor ([id number])
== END ==
PROVIDERS: PCP Nurse Practitioner Family; Visit Provider Internal Medicine Cardiovascular Disease
DX: I49.3 Ventricular premature depolarization (principal); Z95.818 Presence of other cardiac implants and grafts
CPT/HCPCS: 93298

== ENCOUNTER → 2025-01-13 23:59 | Outpatient (BNV) | payer MEDICARE, MEDICAID, SELFPAY ==
--- NOTE | 2025-01-18 13:55 | MHC.OFFVIS ---
Intake Visit Reasons: Remote ILR check- [employer] Allergies No Known Allergies Allergy (Verified 12/13/24 13:50) [facility] Medical History (Updated 01/14/25 @ 12:39 by Isha Erickson MA) Cervical myelopathy Intracranial arachnoid cyst Peripheral neuropathy Hereditary and idiopathic peripheral neuropathy HTN (hypertension) Aortic stenosis Onychomycosis Cervical radiculopathy Elevated lipoprotein A level Vitamin B12 deficiency RLS (restless legs syndrome) PVD (peripheral vascular disease) Neuritis PAC (premature atrial contraction) Hyperlipidemia Diabetes mellitus CAD (coronary artery disease) Surgical History History of knee surgery Family History Father Bone cancer Mother Unknown family medical history Social History Housing: Apartment Alcohol intake: never Patient Tobacco Use Status: Former Tobacco user e-Cigarette/Vaping Use: Never Used Second Hand Smoke Exposure: No service: No Current occupational status: retired Cognitive needs: No Hearing needs: No Vision needs: Yes (rx glasses) Office Procedures Cardiac Device Check Cardiac Device Check Details: Remote implantable loop recorder report generated 01/13/2025. One pause of 3 seconds noted at 10:11. Will follow up with the patient [id number] Cardiac Interrogation, subcut cardiac rhythm monitor Procedure code (CPT) selection complete Assessment & Plan Assessment & Plan (1) Status post placement of implantable loop recorder: Code(s): Z95.818 - Presence of other cardiac implants and grafts Category: Medical Plan: See above Coding Level of Care Code Procedure Only Diagnoses Status post placement of implantable loop recorder Z95.818 CPT Codes Cardiac Device Check - Cardiac Device 16: [id number] Cardiac Interrogation, subcut cardiac rhythm monitor ([id number])
== END ==
PROVIDERS: PCP Nurse Practitioner Family; Visit Provider Internal Medicine Cardiovascular Disease
DX: Z45.09 Encounter for adjustment and management of other cardiac device (principal)
CPT/HCPCS: 93298

== ENCOUNTER 2025-01-18 15:43 | Outpatient (AMB) | payer MEDICARE, MEDICAID, SELFPAY ==
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
--- OUTSIDE RECORDS SUMMARY | 2025-01-18 16:37 | XMS_ITS | Patient Health Record ---
Author Organization [facility] Address [address] [facility] [address] [place] [id number] Care Team Providers Care Silo Operator Name Role Phone NONE, NONE Primary Care Provider Owen Hameed Jr Unavailable [phone] Reason For Referral No Information Plan Of Treatment No Information
== END 2025-01-18 16:22 | disposition home or self-care (01) ==
LOC: HO.HSM 15:43
PROVIDERS: PCP Nurse Practitioner Family; Referring Provider Nurse Practitioner Family; Visit Provider Psychiatry & Neurology Neurology
DX: G25.81 Restless legs syndrome (principal); G56.03 Carpal tunnel syndrome, bilateral upper limbs; M54.12 Radiculopathy, cervical region
CPT/HCPCS: 99214

== ENCOUNTER → 2025-01-18 15:43 | Outpatient (BNVA) | payer MEDICARE, MEDICAID, SELFPAY | PROVIDERS: PCP Nurse Practitioner Family; Referring Provider Nurse Practitioner Family; Visit Provider Psychiatry & Neurology Neurology | DX: G25.81 Restless legs syndrome (principal); G56.03 Carpal tunnel syndrome, bilateral upper limbs; M54.12 Radiculopathy, cervical region | CPT/HCPCS: 99212 ==

== ENCOUNTER → 2025-02-11 23:59 | Outpatient (BNV) | payer MEDICARE, MEDICAID, SELFPAY ==
--- NOTE | 2025-02-22 12:22 | A.OFFVIS_ITS ---
Intake Visit Reasons: Remote ILR check- [employer] Allergies No Known Allergies Allergy (Verified 12/13/24 13:50) [facility] Medical History (Updated 01/21/25 @ 16:08 by Kerry Dumont NP-C) Cervical myelopathy Intracranial arachnoid cyst Peripheral neuropathy Hereditary and idiopathic peripheral neuropathy HTN (hypertension) Aortic stenosis Onychomycosis Cervical radiculopathy Elevated lipoprotein A level Vitamin B12 deficiency RLS (restless legs syndrome) PVD (peripheral vascular disease) Neuritis PAC (premature atrial contraction) Hyperlipidemia Diabetes mellitus CAD (coronary artery disease) Surgical History History of knee surgery Family History Father Bone cancer Mother Unknown family medical history Social History Housing: Apartment Alcohol intake: never Patient Tobacco Use Status: Former Tobacco user e-Cigarette/Vaping Use: Never Used Second Hand Smoke Exposure: No service: No Current occupational status: retired Cognitive needs: No Hearing needs: No Vision needs: Yes (rx glasses) Office Procedures Cardiac Device Check Cardiac Device Check Details: Remote implantable loop recorder report generated 02/12/2025. Frequent PVCs noted. No pauses or tachyarrhythmias noted [id number] Cardiac Interrogation, subcut cardiac rhythm monitor Procedure code (CPT) selection complete Assessment & Plan Assessment & Plan (1) Status post placement of implantable loop recorder: Code(s): Z95.818 - Presence of other cardiac implants and grafts Category: Medical Plan: See above Coding Level of Care Code Procedure Only Diagnoses Status post placement of implantable loop recorder Z95.818 CPT Codes Cardiac Device Check - Cardiac Device 16: [id number] Cardiac Interrogation, subcut cardiac rhythm monitor ([id number])
== END ==
PROVIDERS: PCP Nurse Practitioner Family; Visit Provider Internal Medicine Cardiovascular Disease
DX: I49.3 Ventricular premature depolarization (principal); Z95.818 Presence of other cardiac implants and grafts
CPT/HCPCS: 93298

== ENCOUNTER → 2025-02-14 14:48 | Outpatient (REF) | payer MEDICARE, MEDICAID, SELFPAY ==
--- NOTE | 2025-02-14 14:55 | CA_ITS ---
Transthoracic Echocardiogram Patient (Last, First, Middle): Uriah Ramires A Gender: Male Date of : 1950 Age: 74 Procedure Date: 02/14/2025 Procedure Type: Transthoracic Echocardiogram Location: OP Height: 170.18 cm Weight: 70.31 kg BSA: 1.81 m2 Heart Rate: 56 bpm BP: 136 / 64 mmHg Benefits Representative: SB Referring MD: Kerry Dumont HAY CHOPPERChikis Symptoms: I35.0 - Nonrheumatic aortic (valve) stenosis Study Quality: Adequate ECG Rhythm: Sinus Conclusions: - The left ventricular systolic function is normal. The calculated ejection fraction is 63% by biplane method. - There is mild to moderate aortic valve stenosis. Findings Left Ventricle Normal left ventricular cavity size. The left ventricular systolic function is normal. The calculated ejection fraction is 63% by biplane method. There is no evidence of regional wall motion abnormalities. Diastolic function is normal for age. There is mild septal asymmetric hypertrophy. Right Ventricle Normal right ventricular cavity size and systolic function. Atria Both atria are normal in size. Aortic Valve There is mild calcification of the aortic valve. There is mild to moderate aortic valve stenosis. There is mild aortic valve regurgitation. Mitral Valve The mitral valve appears normal. There is trace mitral valve regurgitation. There is no mitral valve stenosis. Pulmonic Valve The pulmonic valve is likely normal. Tricuspid Valve Normal tricuspid valve structure. There is trace tricuspid valve regurgitation. There is no evidence of pulmonary hypertension. Great Vessels The asc aorta is normal in size. Venous The inferior vena cava is normal in size and collapses greater than 50% with inspiration. Pericardium/Pleural There is no evidence of pericardial effusion. Prior Study Comparison No significant change compared to prior study dated: 05/26/2023. Measurements 2D Linear Measurements IVSd: 1.22 0.6-0.9/0.6-1.0 cm LVIDd: 4.16 3.9-5.3/4.2-5.9 cm LVIDd Index: 2.30 2.4-3.2/2.2-3.1 cm/m2 LVIDs: 2.35 2.0-3.6 cm LVPWd: 0.73 0.7-1.1 cm Ao Root: 3.40 2.1-3.5 cm LA Diam: 3.00 2.7-3.8/3.0-4.0 cm LAIDs Index: 1.66 1.5-2.3 cm/m2 LV Mass: 162.70 67-162/88-224 g LV Mass Index: 89.89 43-95/49-115 g/m2 LVOT Diam: 2.40 3.0+(-)1.3 cm 2D Systolic Function EF 4C: 59.10 >55% EF 2C: 65.60 >55% EF BiP: 62.90 >55% Mitral Valve MV Pk E: 0.68 MV PK A: 0.66 MV Decel Time: 189.00 E/A: 1.00 E'Lateral: 9.90 E'Medial: 7.51 E/E' Med: 9.10 E/E' Lat: 6.90 PHT: 55.00 MVA PHT: 4.00 Decel Marathon: 3.60 Aortic Valve AoV Pk Rigoberto: 3.10 AoV Mn Rigoberto: 1.94 AoV VTI: 0.56 AoV Pk Grad: 38.00 Aov Mn Grad: 19.00 MERRY Cont.VTI: 1.70 AI Pk Rigoberto: 4.12 AI Marathon: 2.11 LVOT LVOT Pk Rigoberto: 1.03 LVOT Mn Rigoberto: 0.72 LVOT VTI: 0.21 LVOT Pk Grad: 4.00 LVOT Mn Grad: 3.00 LVOT Diam: 2.40 LVOT Area: 4.52 Diastolic Function MV Pk E: 0.68 MV Pk A: 0.66 E/A: 1.00 E'Medial: 7.51 E/E' Med: 9.10 E' Laterial: 9.90 E/E' Lat: 6.90 Tricuspid Valve TR Pk Rigoberto: 2.62 TR Pk Grad: 27.00 Great Vessels Aorta Ao Root-2D: 3.40 2.0-3.7 cm Ao Asc: 3.40 2.1-3.4 cm Pulmonary Veins Pulm Vein S/D 1.30 Pulmonary Valve PV Pk Rigoberto: 1.13 Peak PV Grad: 5.00 Updated in Other Vendor System with Status of Final Greg Alvarez MD electronically signed on 02/15/2025 8:31:18 AM with status of Final
--- OUTSIDE RECORDS SUMMARY | 2025-02-14 15:11 | XMS_ITS | Patient Health Record ---
Author Organization [facility] Address [address] [facility] [address] [place] [id number] Care Team Providers Care Insole Tacker Name Role Phone NONE, NONE Primary Care Provider Owen Hameed Jr Unavailable Reason For Referral No Information Plan Of Treatment No Information
== END ==
LOC: HO.CARD 14:48
PROVIDERS: PCP Nurse Practitioner Family; Visit Provider Nurse Practitioner Family
DX: I35.0 Nonrheumatic aortic (valve) stenosis (principal)
CPT/HCPCS: 93306

== ENCOUNTER → 2025-02-14 14:55 | Outpatient (BNV) | payer MEDICARE, MEDICAID, SELFPAY | PROVIDERS: PCP Nurse Practitioner Family; Visit Provider Internal Medicine | DX: I35.0 Nonrheumatic aortic (valve) stenosis (principal) | CPT/HCPCS: 93306 ==

== ENCOUNTER → 2025-03-14 23:59 | Outpatient (BNV) | payer MEDICARE, MEDICAID, SELFPAY ==
--- NOTE | 2025-03-22 16:04 | A.OFFVIS_ITS ---
Intake Visit Reasons: Remote ILR check- [employer] Allergies No Known Allergies Allergy (Verified 12/13/24 13:50) ON LICENSE OF [facility] Medical History (Updated 01/21/25 @ 16:08 by Kerry Dumont NP-C) Cervical myelopathy Intracranial arachnoid cyst Peripheral neuropathy Hereditary and idiopathic peripheral neuropathy HTN (hypertension) Aortic stenosis Onychomycosis Cervical radiculopathy Elevated lipoprotein A level Vitamin B12 deficiency RLS (restless legs syndrome) PVD (peripheral vascular disease) Neuritis PAC (premature atrial contraction) Hyperlipidemia Diabetes mellitus CAD (coronary artery disease) Surgical History History of knee surgery Family History Father Bone cancer Mother Unknown family medical history Social History Housing: Apartment Alcohol intake: never Patient Tobacco Use Status: Former Tobacco user e-Cigarette/Vaping Use: Never Used Second Hand Smoke Exposure: No service: No Current occupational status: retired Cognitive needs: No Hearing needs: No Vision needs: Yes (rx glasses) Office Procedures Cardiac Device Check Cardiac Device Check Details: Remote implantable loop recorder report generated 03/14/2025. Frequent isolated extra systoles notice suggestive of PVCs, 2.5% burden without any tachyarrhythm ias. No pauses noted [id number] Cardiac Interrogation, subcut cardiac rhythm monitor Procedure code (CPT) selection complete Assessment & Plan Assessment & Plan (1) Status post placement of implantable loop recorder: Code(s): Z95.818 - Presence of other cardiac implants and grafts Category: Medical Plan: See above Coding Level of Care Code Procedure Only Diagnoses Status post placement of implantable loop recorder Z95.818 CPT Codes Cardiac Device Check - Cardiac Device 16: [id number] Cardiac Interrogation, subcut cardiac rhythm monitor ([id number])
== END ==
PROVIDERS: PCP Nurse Practitioner Family; Visit Provider Internal Medicine Cardiovascular Disease
DX: I49.3 Ventricular premature depolarization (principal); Z95.818 Presence of other cardiac implants and grafts
CPT/HCPCS: 93298

== ENCOUNTER 2025-04-13 10:17 | Outpatient (AMB) | payer MEDICARE, MEDICAID, SELFPAY ==
--- NOTE | 2025-04-13 10:48 | A.OFFPC_ITS ---
Vital Signs 04/13/25 10:51 Height 5 ft 9 in Weight 152 lb BMI 22.4 BP 130/80 Blood Pressure Location Lt brachial Position Sitting Respiration 16 Pulse 82 Pulse Source Pulse Oximeter Pulse Oximetry (%) 95 Oxygen Delivery Method Room Air Intake Visit Reasons: 4m follow up Lens Cleaner Required: No Accompanied by: Self / Same As Patient Allergies No Known Allergies Allergy (Verified 04/13/25 10:56) Tobacco use date assessed: 04/13/25 Fall risk assessment: No Falls in past year Last assessed Fall Risk: 04/13/25 Dental Screening Dental Screen Date: 04/13/25 Did you have a dental visit in the last 12 months?: No Did you have a dental problem in the last 6 months where you did not have access to dental care?: No Was dental information given to patient?: Patient declined HPI 4m follow up HPI Details Chief Complaint The patient presents for a follow-up regarding diabetes management and toenail issues. History of Present Illness The patient is a 74-year-old male presenting with a follow-up for diabetes management. His hemoglobin A1c is 6.9%, indicating a need for continued monitoring and management. He reports feeling well and denies any neuropathy. The patient also reports a toenail problem characterized by elongation and onychomycosis. He expresses a desire for assistance in toenail care, and a referral to a inside sales supervisor is planned. Additionally, the patient has undergone an eye examination, which is up to date, and reports positive sensation with the use of a monofilament test, indicating no significant diabetic neuropathy. Social History Health Maintenance - Eye examination is up to date - Encouraged to get laboratory tests in the near future Review of Systems - Neurological: Denies neuropathy Physical Exam General: Cooperative, healthy appearing, comfortable, no acute distress and well developed Orientation: Patient oriented x3 Limitations: No limitations Head: Normal to inspection Ears: Hearing grossly normal bilaterally Nose: Normal external nose present Face and sinus: Normal facial exam Eyes: Appearance normal, both eyes and all related structures Neck: Normal visual inspection and Yes full ROM Respiratory: Normal respiratory effort and able to speak in complete sentences. Fairly clear by auscultation bilaterally Cardiovascular: Regular rate and rhythm. S1 S2 systolic murmur appreciated GI: Normal to inspection. Soft to palpation and nontender Skin: No rashes or lesions noted Neuro: Patient oriented x3 Extremities: Elongated toenails with onychomycosis noted, + sensation bilat Results - Labs: Hemoglobin A1c is 6.9% - Tests: Onychomycosis confirmed by labo ratory findings Plan 1. Diabetes Mellitus The patient's diabetes management will continue with regular monitoring of blood glucose levels and hemoglobin A1c. He is encouraged to maintain his current regimen and to get laboratory tests in the near future to assess his diabetic control. 2. Onychomycosis The patient will be referred to a inside sales supervisor for toenail care and management of onychomycosis. 3. Systolic Murmur The systolic murmur will be monitored, and further evaluation may be considered if clinically indicated. Discussion Notes I discussed with the patient the importance of regular monitoring of his diabetes and encouraged him to maintain his current regimen. We also talked about the need for toenail care and the referral to a inside sales supervisor for his onychomycosis. The systolic murmur was noted, and I explained that it would be monitored with further evaluation if necessary. Patient Instructions - Continue current diabetes management r egimen and monitor blood glucose levels regularly. - Schedule an appointment with a podiatr ist for toenail care. - Plan to get laboratory tests in the ne ar future to assess diabetic control. [facility] Medical History Cervical myelopathy Intracranial arachnoid cyst Peripheral neuropathy Hereditary and idiopathic peripheral neuropathy HTN (hypertension) Aortic stenosis Onychomycosis Cervical radiculopathy Elevated lipoprotein A level Vitamin B12 deficiency RLS (restless legs syndrome) PVD (peripheral vascular disease) Neuritis PAC (premature atrial contraction) Hyperlipidemia Diabetes mellitus CAD (coronary artery disease) Surgical History History of knee surgery Family History Father Bone cancer Mother Unknown family medical history Social History Housing: Apartment Alcohol intake: never Patient Tobacco Use Status: Former Tobacco user e-Cigarette/Vaping Use: Never Used Second Hand Smoke Exposure: No service: No Current occupational status: retired Cognitive needs: No Hearing needs: No Vision needs: Yes (rx glasses) Questionnaire Thrive Questionnaire Date Thrive assessed: 12/02/24 CHRISTIE-7 AMB Questionnaire CHRISTIE-7 Date CHRISTIE - 7 assessed: 04/13/25 Feeling nervous, anxious, or on edge: 0 = Not at all Not being able to stop or control worryin = Not at all Worrying too much about different things: 0 = Not at all Trouble relaxin = Not at all Being so restless that it is hard to sit still: 0 = Not at all Becoming easily annoyed or irritable: 0 = Not at all Feeling afraid as if something awful might happen: 0 = Not at all Total CHRISTIE-7 score (0-4 normal; 5-9 mild; 10-14 moderate; 15-21 severe): 0 Source: Developed by Drs. Uriah Laughlin, Serena Jacome, John Garcia and colleagues, with an educational adrienne from [employer]. Physical exam (Primary Care) Vital Signs: Last Vital Signs Pulse 82 04/13/25 10:51 Resp 16 04/13/25 10:51 BP 130/80 04/13/25 10:51 Pulse Ox 95 04/13/25 10:51 Oxygen Delivery Method Room Air 04/13/25 10:51 BMI result Body Mass Index 22.4 Tobacco/Smoking Status: Tobacco use Status Tobacco use date assessed 04/13/25 04/13/25 11:02 Patient Tobacco Use Status Former Tobacco user 04/13/25 10:51 e-Cigarette/Vaping Use Never Used 04/13/25 10:51 Thrive Assessment: Date of Thrive Assessment Date Thrive assessed 12/02/24 04/13/25 10:51 Coding Level of Care Code Est Pt Level 3 (58931) Diagnoses Diabetes mellitus E11.9 Screening PSA (prostate specific antigen) Z12.5 Vitamin D deficiency E55.9 Vitamin B12 deficiency E53.8 Overgrown toenails L60.2 Assessment & Plan Assessment & Plan (1) Diabetes mellitus: Code(s): E11.9 - Type 2 diabetes mellitus without complications Category: Medical (2) Screening PSA (prostate specific antigen): Code(s): Z12.5 - Encounter for screening for malignant neoplasm of prostate Category: Medical (3) Vitamin D deficiency: Code(s): E55.9 - Vitamin D deficiency, unspecified Category: Medical (4) Vitamin B12 deficiency: Code(s): E53.8 - Deficiency of other specified B group vitamins Category: Medical (5) Overgrown toenails: Code(s): L60.2 - Onychogryphosis Category: Medical Plan . Orders: Orders Complete Blood Count Auto Diff Today E11.9 - Type 2 diabetes mellitus without complications TSH reflex Free T4 Today E11.9 - Type 2 diabetes mellitus without complications Lipid Panel Today E11.9 - Type 2 diabetes mellitus without complications Microalbumin, Random (w Creat) Today E11.9 - Type 2 diabetes mellitus without complications Prostate Specific Antigen Scr Today Z12.5 - Encounter for screening for malignant neoplasm of prostate Vitamin D 25-OH Total Today E55.9 - Vitamin D deficiency, unspecified Vitamin B12 and Folate Today E53.8 - Deficiency of other specified B group vitamins Comprehensive [place]. Panel Fast Today E11.9 - Type 2 diabetes mellitus without complications UA CC w/rflx Micro + Cult Today E11.9 - Type 2 diabetes mellitus without complications Referrals Podiatry Referral E11.9 - Type 2 diabetes mellitus without complications, L60.2 - Onychogryphosis
[2025-04-13 10:51] VITALS: BP 130/80; PULSE 82; RESP 16; O2SAT 95; BMI 22.4
== END 2025-04-13 11:38 | disposition home or self-care (01) ==
LOC: HO.HMCC 10:18
PROVIDERS: PCP Nurse Practitioner Family; Visit Provider Nurse Practitioner Family
DX: E11.9 Type 2 diabetes mellitus without complications (principal); Z12.5 Encounter for screening for malignant neoplasm of prostate; E55.9 Vitamin D deficiency, unspecified; E53.8 Deficiency of other specified B group vitamins; L60.2 Onychogryphosis; Z13.9 Encounter for screening, unspecified

== ENCOUNTER → 2025-04-13 10:17 | Outpatient (BNVA) | payer MEDICARE, MEDICAID, SELFPAY | PROVIDERS: PCP Nurse Practitioner Family; Visit Provider Nurse Practitioner Family | DX: E11.9 Type 2 diabetes mellitus without complications (principal); B35.1 Tinea unguium; R01.1 Cardiac murmur, unspecified; E55.9 Vitamin D deficiency, unspecified; E53.8 Deficiency of other specified B group vitamins; L60.2 Onychogryphosis | CPT/HCPCS: 83036; 96127; 99212 ==

== ENCOUNTER → 2025-04-13 23:59 | Outpatient (BNV) | payer MEDICARE, MEDICAID, SELFPAY ==
--- NOTE | 2025-04-14 11:52 | MHC.OFFVIS ---
Intake Visit Reasons: Remote ILR check- [employer] Allergies No Known Allergies Allergy (Verified 04/13/25 10:56) [facility] Medical History Cervical myelopathy Intracranial arachnoid cyst Peripheral neuropathy Hereditary and idiopathic peripheral neuropathy HTN (hypertension) Aortic stenosis Onychomycosis Cervical radiculopathy Elevated lipoprotein A level Vitamin B12 deficiency RLS (restless legs syndrome) PVD (peripheral vascular disease) Neuritis PAC (premature atrial contraction) Hyperlipidemia Diabetes mellitus CAD (coronary artery disease) Surgical History History of knee surgery Family History Father Bone cancer Mother Unknown family medical history Social History Housing: Apartment Alcohol intake: never Patient Tobacco Use Status: Former Tobacco user e-Cigarette/Vaping Use: Never Used Second Hand Smoke Exposure: No service: No Current occupational status: retired Cognitive needs: No Hearing needs: No Vision needs: Yes (rx glasses) Office Procedures Cardiac Device Check Cardiac Device Check Details: Remote implantable loop recorder report generated 04/13/2025. No tachyarrhythmias or pauses noted. Frequent isolated PVCs noted at 2.8% burden [id number] Cardiac Interrogation, subcut cardiac rhythm monitor Procedure code (CPT) selection complete Results AMB Hemoglobin A1c AMB Hemoglobin A1c 6.9 % Last Edit by Zoie Vivar MA on 04/13/25 16:07 Assessment & Plan Assessment & Plan (1) Status post placement of implantable loop recorder: Code(s): Z95.818 - Presence of other cardiac implants and grafts Category: Medical Plan: See above Coding Level of Care Code Procedure Only Diagnoses Status post placement of implantable loop recorder Z95.818 CPT Codes Cardiac Device Check - Cardiac Device 16: [id number] Cardiac Interrogation, subcut cardiac rhythm monitor ([id number])
== END ==
PROVIDERS: PCP Nurse Practitioner Family; Visit Provider Internal Medicine Cardiovascular Disease
DX: I49.3 Ventricular premature depolarization (principal); Z95.818 Presence of other cardiac implants and grafts
CPT/HCPCS: 93298

== ENCOUNTER 2025-05-13 08:43 | Outpatient (REF) | payer MEDICARE, MEDICAID, SELFPAY ==
[2025-05-13 10:21] LABS: MANUAL DIFF FLAG NO
[2025-05-13 10:31] LABS: Hematocrit 43.1 % (42.0-52.0); Hemoglobin 14.4 g/dl (14.0-18.0); Imm Gran Abs Auto 0.01 X10*3/uL (0.00-0.03); Imm Gran Pct Auto 0.2 % (0.0-0.4); Lymphocytes Absolute Auto 1.1 X10*3/uL (1.2-4.9); Mean Corpuscular HGB Conc 33.4 g/dl (31.0-36.0); Mean Corpuscular Hemoglobin 30.0 pg (27.0-33.0); Mean Corpuscular Volume 89.8 fL (80.0-98.0); NRBC Abs Auto 0.000 X10*3/uL (0.0-0.012); NRBC Pct Auto 0.0 /100WBC (0.0-0.2); Platelet Count 167 X10*3/uL (160-400); Red Blood Count 4.80 X10*6/uL (4.60-5.80); White Blood Count 5.4 X10*3/uL (4.8-10.8)
[2025-05-13 10:52] LABS: Alanine Aminotransferase 32 U/L (0-40); Albumin Level 4.0 g/dL (3.5-5.0); Alkaline Phosphatase 85 U/L (39-117); Anion Gap 13 (12-20); Aspartate Amino Transferase 27 U/L (5-37); Blood Urea Nitrogen 18 mg/dL (9-16); Calcium 8.7 mg/dL (8.4-10.2); Carbon Dioxide 26 mmol/L (22-29); Chloride 108 mmol/L (96-108); Cholesterol 130 mg/dL (<200); Estimated Glomerular Filt Rate > 60; HDL Cholesterol 50 mg/dL (>40); Potassium 4.0 mmol/L (3.3-5.1); Sodium 143 mmol/L (135-145); Total Protein 6.4 g/dL (6.5-8.0); Triglycerides 64 mg/dL (<150)
[2025-05-13 11:00] LABS: Appearance Urine Clear; Glucose Urine UA >=1000 mg/dL (Negative); PH 5.0 (5.0-9.0); Specific Gravity - Urine >= 1.030 (1.005-1.025); UMIC TRIGGER UACC YES
[2025-05-13 11:23] LABS: Microalbum/Creatinine Ratio Ur 45.4 ug/mg cr (<30)
[2025-05-13 11:27] LABS: Folate 5.8 ng/mL (> or = 4.0); Vitamin B12 438 pg/mL (200-900)
== END 2025-05-13 08:44 | disposition home or self-care (01) ==
LOC: HO.HMGCLDS 08:43
PROVIDERS: PCP Nurse Practitioner Family; Visit Provider Nurse Practitioner Family
DX: Z12.5 Encounter for screening for malignant neoplasm of prostate (principal); E11.9 Type 2 diabetes mellitus without complications; E53.8 Deficiency of other specified B group vitamins; E55.9 Vitamin D deficiency, unspecified
CPT/HCPCS: 36415; 80053; 80061; 81001; 81003; 82043; 82306; 82570; 82607; 82746; 84153; 84443; 85025

== ENCOUNTER 2025-05-24 14:27 | Outpatient (AMB) | payer MEDICARE, MEDICAID, SELFPAY ==
--- NOTE | 2025-05-24 14:27 | HO.NEPHOV_ITS ---
Vital Signs 05/24/25 14:28 Height 5 ft 9 in Weight 156 lb BMI 23.0 BP 140/72 H Blood Pressure Location Lt brachial Position Sitting Pulse 77 Pulse Source Pulse Oximeter Pulse Oximetry (%) 99 Oxygen Delivery Method Room Air Intake Visit Reasons: INP :Proteinuria Coding Team Lead Required: No Accompanied by: Self / Same As Patient Allergies No Known Allergies Allergy (Verified 05/24/25 14:30) Medication List - Last Reconciled 05/24/25 by Sergio Antonio MD amlodipine 5 mg PO DAILY aspirin 81 mg PO DAILY atorvastatin 80 mg PO DAILY blood sugar diagnostic (FreeStyle Lite Strips) Test blood sugar once a day blood-glucose meter (FreeStyle Lite Meter kit) As directed dapagliflozin propanediol 10 mg PO DAILY flash glucose scanning reader ([employer] Krish 2 [place]) As directed flash glucose sensor (FreeStyle Krish 2 Sensor kit) As directed lancets (FreeStyle Lancets) Test blood sugar once a day lisinopril 5 mg PO DAILY metformin 500 mg PO DAILY montelukast 10 mg PO DAILY paroxetine HCl 30 mg PO QAM pramipexole 0.5 mg PO BID HPI Comments Details: The patient is a 74-year-old male presenting for evaluation of proteinuria. He has a history of diabetes for at least five years, although he is unsure of the exact duration of the condition. His medications for diabetes include Farxiga, and he is no longer taking metformin. He has not seen a dietitian. The patient also has a history of hypertension, with his blood pressure noted to be slightly elevated today. He is currently treated with lisinopril 5 mg and amlodipine. The patient reports inadequate water intake. [facility] Medical History Cervical myelopathy Intracranial arachnoid cyst Peripheral neuropathy Hereditary and idiopathic peripheral neuropathy HTN (hypertension) Aortic stenosis Onychomycosis Cervical radiculopathy Elevated lipoprotein A level Vitamin B12 deficiency RLS (restless legs syndrome) PVD (peripheral vascular disease) Neuritis PAC (premature atrial contraction) Hyperlipidemia Diabetes mellitus CAD (coronary artery disease) Surgical History History of knee surgery Family History Father Bone cancer Mother Unknown family medical history Social History Housing: Apartment Alcohol intake: never Patient Tobacco Use Status: Former Tobacco user e-Cigarette/Vaping Use: Never Used Second Hand Smoke Exposure: No service: No Current occupational status: retired Cognitive needs: No Hearing needs: No Vision needs: Yes (rx glasses) Review of Systems Const Denies fever(s) and Denies weight loss Card Denies chest pain Resp Denies cough and Denies hemoptysis GI Denies abdominal pain, Denies diarrhea and Denies nausea Musc Denies back pain Neuro Denies focal weakness Physical Exam Vital Signs: Last Vital Signs Pulse 77 05/24/25 14:28 BP 140/72 H 05/24/25 14:28 Pulse Ox 99 05/24/25 14:28 Oxygen Delivery Method Room Air 05/24/25 14:28 BMI result Body Mass Index 23.0 Comfortable Neck supple no JVD. Lungs entry equal no rales. Heart S1-S2 heard no gallop or rub. Abdomen soft nontender. Neuro alert awake oriented. No asterixis. Extremities no edema. Results Reviewed Nephrology Results: Hgb, (14.0-18.0) 14.4 g/dl 05/13/25 WBC, (4.8-10.8) 5.4 X10*3/uL 05/13/25 Plt Count, (160-400) 167 X10*3/uL 05/13/25 Sodium, (135-145) 143 mmol/L 05/13/25 Potassium, (3.3-5.1) 4.0 mmol/L 05/13/25 Chloride, (96-108) 108 mmol/L 05/13/25 Carbon Dioxide, (22-29) 26 mmol/L 05/13/25 BUN, (9-16) 18 mg/dL H 05/13/25 Creatinine, (0.5-1.4) 0.74 mg/dL 05/13/25 Calcium, (8.4-10.2) 8.7 mg/dL Δ 05/13/25 Urine Protein, (Neg-Trace) Trace mg/dL 05/13/25 Urine Creatinine 116.53 mg/dL 05/13/25 Assessment & Plan Assessment & Plan (1) HTN (hypertension): Code(s): I10 - Essential (primary) hypertension Category: Medical (2) Microalbuminuria: Code(s): R80.9 - Proteinuria, unspecified Category: Medical Plan 1. Proteinuria Most likely due to underlying diabetic hypertensive kidney disease. - The plan is to increase the dose of lisinopril to 10 mg to help protect the kidneys and maintain blood pressure. Less than 130/80 - The patient will continue taking Farxiga for its kidney-protective benefits. - Kidney function and urine protein levels will be rechecked in two months. - A follow-up appointment will be scheduled after the lab results are available. 2. Type 2 Diabetes Mellitus - Continue Farxiga for glycemic control and renal protection. - The importance of keeping blood sugar under control was emphasized. Goal A1c less than 7% - Seeing a dietitian was suggested, but the patient has not pursued this. 3. Hypertension - The dose of lisinopril will be increased from 5 mg to 10 mg to help lower blood pressure. - The patient will continue taking amlodipine. 4. Inadequate Fluid Intake Urine specific gravity more than 1.030 - The patient has been advised to increase his daily water intake. Orders: Orders Basic Metabolic Panel 2 Months I10 - Essential (primary) hypertension, R80.9 - Proteinuria, unspecified Creatinine Urine 2 Months I10 - Essential (primary) hypertension, R80.9 - Proteinuria, unspecified Total Protein Urine Random 2 Months I10 - Essential (primary) hypertension, R80.9 - Proteinuria, unspecified UA and rflx microscopic 2 Months I10 - Essential (primary) hypertension, R80.9 - Proteinuria, unspecified Medications: Changed From lisinopril 5 mg PO DAILY 90 tabs 1RF To lisinopril 10 mg PO DAILY 90 tabs 1RF Coding Level of Care Code New Pt Level 4 (51521) Diagnoses HTN (hypertension) I10 Microalbuminuria R80.9
[2025-05-24 14:28] VITALS: BP 140/72; PULSE 77; O2SAT 99; BMI 23.0
--- OUTSIDE RECORDS SUMMARY | 2025-05-25 12:09 | XMS_ITS | Patient Health Record ---
Author Organization [facility] Address [address] [facility] [address] [place] [id number] Care Team Providers Care Tree Trimmer Name Role Phone NONE, NONE Primary Care Provider Owen Hameed Jr Unavailable Reason For Referral No Information Plan Of Treatment No Information
== END 2025-05-24 14:44 | disposition home or self-care (01) ==
LOC: HO.HKA 14:27
PROVIDERS: PCP Nurse Practitioner Family; Visit Provider Internal Medicine Hypertension Specialist
DX: I10 Essential (primary) hypertension (principal); R80.9 Proteinuria, unspecified
CPT/HCPCS: 99204

== ENCOUNTER → 2025-05-24 14:27 | Outpatient (BNVA) | payer MEDICARE, MEDICAID, SELFPAY | PROVIDERS: PCP Nurse Practitioner Family; Visit Provider Internal Medicine Hypertension Specialist | DX: I10 Essential (primary) hypertension (principal); R80.9 Proteinuria, unspecified; E11.9 Type 2 diabetes mellitus without complications; Z79.84 Long term (current) use of oral hypoglycemic drugs; Z79.82 Long term (current) use of aspirin; Z87.891 Personal history of nicotine dependence | CPT/HCPCS: 99202 ==

== ENCOUNTER → 2025-05-26 12:32 | Outpatient (BNV) | payer MEDICARE, MEDICAID, SELFPAY | PROVIDERS: PCP Nurse Practitioner Family | DX: I49.3 Ventricular premature depolarization (principal); Z45.09 Encounter for adjustment and management of other cardiac device | CPT/HCPCS: 93298 ==

== ENCOUNTER 2025-07-05 11:40 | Outpatient (AMB) | payer MEDICARE, MEDICAID, SELFPAY ==
[2025-07-05 11:46] VITALS: BP 128/72; PULSE 69; BMI 22.8
--- NOTE | 2025-07-05 11:46 | A.OFFVIS_ITS ---
Vital Signs 07/05/25 11:46 Height 5 ft 9 in Weight 154 lb 5.177 oz BMI 22.8 BP 128/72 Blood Pressure Location Lt brachial Position Sitting Pulse 69 Intake Visit Reasons: 6 mth per dc Intake Note: 6 month follow-up [employer] dil[facility] ok Office Bookkeeper Required: No Allergies No Known Allergies Allergy (Verified 05/24/25 14:30) Medication List - Last Reconciled 07/05/25 by Christophe Mayorga MD amlodipine 5 mg PO DAILY aspirin 81 mg PO DAILY atorvastatin 80 mg PO DAILY blood sugar diagnostic (FreeStyle Lite Strips) Test blood sugar once a day blood-glucose meter (FreeStyle Lite Meter kit) As directed dapagliflozin propanediol 10 mg PO DAILY flash glucose scanning reader (FreeStyle Krish 2 [place]) As directed flash glucose sensor (FreeStyle Krish 2 Sensor kit) As directed lancets (FreeStyle Lancets) Test blood sugar once a day lisinopril 10 mg PO DAILY metformin 500 mg PO DAILY montelukast 10 mg PO DAILY paroxetine HCl 30 mg PO QAM pramipexole 0.5 mg PO BID HPI Comments Details: Uriah comes for follow-up. Was noted couple of months ago on the monitor to have pauses during sleep hours. Subsequent monitoring does not show any pauses. Does show frequent PVCs. He has no cardiac symptoms. Denies any palpitation, lightheadedness, syncope. Echocardiogram shows [id number] aortic stenosis. [facility] Medical History Cervical myelopathy Intracranial arachnoid cyst Peripheral neuropathy Hereditary and idiopathic peripheral neuropathy HTN (hypertension) Aortic stenosis Onychomycosis Cervical radiculopathy Elevated lipoprotein A level Vitamin B12 deficiency RLS (restless legs syndrome) PVD (peripheral vascular disease) Neuritis PAC (premature atrial contraction) Hyperlipidemia Diabetes mellitus CAD (coronary artery disease) Surgical History History of knee surgery Family History Father Bone cancer Mother Unknown family medical history Social History Housing: Apartment Alcohol intake: never Patient Tobacco Use Status: Former Tobacco user e-Cigarette/Vaping Use: Never Used Second Hand Smoke Exposure: No service: No Current occupational status: retired Cognitive needs: No Hearing needs: No Vision needs: Yes (rx glasses) Review of Systems Const Denies chills, Denies fatigue, Denies fever(s), Denies frequent falls, Denies weakness, Denies weight gain and Denies weight loss ENT Denies dizziness Card Denies chest pain, Denies leg edema, Denies lightheadedness, Denies palpitations, Denies dyspnea, Denies dyspnea on exertion, Denies orthopnea and Denies other (loss of consciousness) Resp Denies cough, Denies dyspnea and Denies dyspnea on exertion GI Denies hematochezia and Denies change in stool character Musc Denies abnormal gait, Denies muscle weakness, Denies numbness, Denies radiating pain into limb and Denies tingling Neuro Denies abnormal gait, Denies dizziness, Denies frequent falls, Denies numbness, Denies tingling and Denies weakness Endo Denies fatigue and Denies palpitations Physical Exam Vital Signs: Last Vital Signs Pulse 69 07/05/25 11:46 BP 128/72 07/05/25 11:46 BMI result Body Mass Index 22.8 Const General: cooperative, healthy appearing, comfortable and no acute distress Orientation/consciousness: patient oriented x3 Neck Neck: Yes normal visual inspection and Yes no JVD Resp Effort & Inspection: normal respiratory effort Auscultation: clear to auscultation bilaterally, no crackles, no rales, no rhonchi and no wheezes Cardio Jugular venous distension: no JVD Rate: regular rate Rhythm: regular rhythm Heart sounds: S1 normal heart sound present, S2 normal heart sound present, Murmur heart sound present (2/6 systolic right sternal border) and no rubs Neuro General: patient oriented x3 Extrem General: Yes normal to inspection and No no pedal edema Psych Appearance: grossly normal Mental Status: mental status grossly normal Speech and movement: Normal speech and movement present Assessment & Plan Assessment & Plan (1) Aortic stenosis: Code(s): I35.0 - Nonrheumatic aortic (valve) stenosis Category: Medical Plan: Aortic stenosis which is [id number]. Follow up on the echocardiogram in 8 months time. Continue aggressive vascular risk factor modification. Continue low-dose aspirin therapy. Continue high-intensity statin therapy with target goal LDL less than 70 mg/dL. Continue aggressive blood pressure control which is currently well optimized. Continue aggressive diabetes management through your office with goal hemoglobin A1c less than 7%. (2) PVCs (premature ventricular contractions): Code(s): I49.3 - Ventricular premature depolarization Category: Medical Plan: PVCs noted on prior monitoring as well as on implantable loop recorder. No symptoms related to it. No specific therapy is indicated. Continue to avoid stimulants. Stress mitigation strategies discussed. (3) Status post placement of implantable loop recorder: Code(s): Z95.818 - Presence of other cardiac implants and grafts Category: Medical Plan: Implantable loop recorder placed due to syncope of unclear origin. Has had no pauses during daytime but pauses during nighttime. This is most suggestive of sleep apnea. Would suggest a home sleep study. Will follow up in the clinic in a month's time, sooner PRN. Thank you for allowing me to partake in his care Orders: Orders CA echo transthoracic complete 8 Months I35.0 - Nonrheumatic aortic (valve) stenosis RT home sleep study Today I45.5 - Other specified heart block, R40.0 - Somnolence Coding Level of Care Code Est Pt Level 4 (82954) Diagnoses Aortic stenosis I35.0 PVCs (premature ventricular contractions) I49.3 Status post placement of implantable loop recorder Z95.818
--- OUTSIDE RECORDS SUMMARY | 2025-07-05 15:45 | XMS_ITS | Patient Health Record ---
Author Organization [facility] Address [address] [facility] [address] [place] [id number] Care Team Providers Care Acid Cleaner Name Role Phone NONE, NONE Primary Care Provider Owen Hameed Jr Unavailable [phone] Reason For Referral No Information Plan Of Treatment No Information
== END 2025-07-05 12:01 | disposition home or self-care (01) ==
LOC: HO.HCS 11:41
PROVIDERS: PCP Nurse Practitioner Family; Visit Provider Internal Medicine Cardiovascular Disease
DX: I35.0 Nonrheumatic aortic (valve) stenosis (principal); I49.3 Ventricular premature depolarization; Z95.818 Presence of other cardiac implants and grafts
CPT/HCPCS: 99214

== ENCOUNTER → 2025-07-05 11:40 | Outpatient (BNVA) | payer MEDICARE, MEDICAID, SELFPAY | PROVIDERS: PCP Nurse Practitioner Family; Visit Provider Internal Medicine Cardiovascular Disease | DX: I35.0 Nonrheumatic aortic (valve) stenosis (principal); I49.3 Ventricular premature depolarization; I45.5 Other specified heart block; Z95.818 Presence of other cardiac implants and grafts | CPT/HCPCS: 99212 ==